=== PATIENT | male | born 1960 | race Caucasian/White ===

== ENCOUNTER 2019-10-25 08:08 | Outpatient (RCR) | payer OTHER | END 2019-10-26 | LOC: M PT 08:08 | DX: Z51.89 Encounter for other specified aftercare (principal); F07.81 Postconcussional syndrome ==

== ENCOUNTER 2019-11-15 12:25 | Outpatient (RCR) | payer OTHER | END 2019-11-25 | LOC: M PT 12:25 | DX: S06.0X9D Concussion with loss of consciousness of unspecified duration, subsequent encounter (principal); X58.XXXD Exposure to other specified factors, subsequent encounter; Y92.89 Other specified places as the place of occurrence of the external cause; Y99.0 Civilian activity done for income or pay ==

== ENCOUNTER 2020-02-03 13:57 | Emergency (ER) | payer OTHER ==
[~2020-02-03] VITALS: Ht 167.6 cm; Wt 81.2 kg
[2020-02-03] MEDS ORDERED: CHLO125TA (14:10)
[2020-02-03 14:45] LABS: BASO # 0.1 10^3/uL (0.0-0.2); BASO % 0.9 % (0.0-1.0); EOS # 0.3 10^3/uL (0.0-0.5); EOS % 4.1 % (0.0-3.0); HEMOGLOBIN 17.1 g/dl (13.5-17.5); LYMPH # 0.9 10^3/uL (1.5-5.0); LYMPH % 12.9 % (24.0-44.0); MEAN CORPUSCULAR HEMOGLOBIN 32.8 pg (27.0-33.0); MEAN CORPUSCULAR HGB CONC 35.6 g/dl (32.0-36.5); MEAN CORPUSCULAR VOLUME 92.1 fl (80.0-96.0); MONO # 0.7 10^3/uL (0.0-0.8); MONO % 11.1 % (0.0-5.0); NEUTROPHILS # 4.7 10^3/uL (1.5-8.5); NEUTROPHILS % 70.7 % (36.0-66.0); PLATELET COUNT, AUTOMATED 249 10^3/uL (150-450); RED BLOOD COUNT 5.21 10^6/uL (4.30-6.10); WHITE BLOOD COUNT 6.6 10^3/uL (4.0-10.0)
[2020-02-03 14:59] LABS: INR 0.98; PROTHROMBIN TIME 12.7 SECONDS (11.8-14.0)
[2020-02-03 15:43] LABS: ALBUMIN 3.8 GM/DL (3.2-5.2); BILIRUBIN,DIRECT 0.2 MG/DL (0.0-0.2); BILIRUBIN,TOTAL 0.9 MG/DL (0.2-1.0); TOTAL PROTEIN 7.7 GM/DL (6.4-8.2)
[2020-02-03] MEDS ORDERED: holter (15:50)
[2020-02-03] MEDS ORDERED: CHLORTHALIDONE 25 MG TAB PO ONE (16:00)
[2020-02-03] MEDS ORDERED: CHLO125TA PO (16:29)
[2020-02-03 17:10] VITALS: BP 150/98
--- NOTE | 2020-02-04 02:13 | REP ---
REASON: Cardiac symptoms. PRIORS: None. The technique utilized in obtaining the radiograph has magnified the cardiac silhouette and accentuated the interstitial markings. There is cardiomegaly accentuated by technique. The lung perry are clear, and the pleural angles are sharp. The osseous structures are within normal limits. IMPRESSION: Cardiomegaly without evidence of acute cardiopulmonary disease. Electronically Signed by Abhijit Huffman DO 02/04/2020 08:56 A
--- NOTE | 2020-02-04 10:11 | ECGEPIP ---
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
== END 2020-02-03 17:11 | disposition home or self-care (01) ==
LOC: M ED 13:57
DX: R00.2 Palpitations (principal); I51.7 Cardiomegaly

== ENCOUNTER → 2020-02-08 | Outpatient (CLI) | payer OTHER ==
[~2020-02-08] MED LIST: CHLO125TA; CHLO125TA PO; holter
--- NOTE | 2020-02-10 15:19 | HOLTMON ---
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 No significant pauses or AV block. Rare isolated PAC averaging 10 per hour, very rare atrial couplet, 2 atrial triplets but no PSVT. Frequent isolated PVCs averaging 235 per hour with rare ventricular couplets and occasional accelerated idioventricular rhythm (averaging 5 per hour; longest 49 beats with rates varying from 73-125 bpm. Single diary entry noting left-sided chest pain while walking did not correlate with any rhythm or rate change; sinus at 91 bpm with isolated PVC. The observed ventricular ectopic activity would be considered outside normal limits. The prognosis associated with this rhythm disturbance is directly related to the presence and severity of any associated structural heart disease. Primary management would be that of the underlying cardiac condition along with assessment of potentially reversible aggravating factors, i.e. excessive caffeine, alcohol, nicotine, [id number] decongestants, energizers, or dietary aids, etc. Antiarrhythmic medications have not been shown to reduce risk or prolong life. Electronically Signed on 02-10-2020 15:19:26 EDT by Erlinda Stacy
== END ==
LOC: M EKG 12:16
PROVIDERS: ATTEND Internal Medicine
DX: I49.9 Cardiac arrhythmia, unspecified (principal)

== ENCOUNTER 2020-02-21 15:15 | Outpatient (RCR) | payer OTHER | END 2020-02-25 | disposition home or self-care (01) | LOC: M PT 15:15 | PROVIDERS: ATTEND Physician Assistant | DX: F07.81 Postconcussional syndrome (principal) ==

== ENCOUNTER 2020-03-15 15:15 | Outpatient (RCR) | payer OTHER | END 2020-03-27 | LOC: M PT 15:15 | PROVIDERS: ATTEND Physician Assistant | DX: F07.81 Postconcussional syndrome (principal) ==

== ENCOUNTER 2020-03-29 14:28 | Outpatient (RCR) | payer OTHER | END 2020-04-26 | LOC: M PT 14:28 | PROVIDERS: ATTEND Physician Assistant | DX: F07.81 Postconcussional syndrome (principal) ==

== ENCOUNTER 2020-06-14 12:53 | Emergency (ER) | payer OTHER ==
[~2020-06-14] VITALS: Ht 170.2 cm; Wt 88.2 kg
[2020-06-14 12:53] VITALS: BP 135/90
[2020-06-14] MEDS ORDERED: SM F500O EX (13:02)
[2020-06-14] MEDS ORDERED: RABIES IMMUNE GLOBULIN 1500 INTERNATIONAL UNIT/5ML VIAL (90375) IM ONE ×2 (13:30)
[2020-06-14] MEDS ORDERED: RABIES VACCINE HUMAN 2.5 INTERNATIONAL UNITS/ML VIAL (90675) IM ONE (13:30)
[2020-06-14] MEDS ORDERED: RABIES IMMUNE GLOBULIN 300 INTERNATIONAL UNITS/1ML VIAL (90375) IM ONE (13:30)
== END 2020-06-14 14:18 | disposition home or self-care (01) ==
LOC: M ED 12:53
DX: Z23 Encounter for immunization (principal); Z20.3 Contact with and (suspected) exposure to rabies; S61.451A Open bite of right hand, initial encounter; W55.01XA Bitten by cat, initial encounter; Y92.410 Unspecified street and highway as the place of occurrence of the external cause; Y93.9 Activity, unspecified; Y99.9 Unspecified external cause status; I10 Essential (primary) hypertension; Z79.899 Other long term (current) drug therapy; Z88.5 Allergy status to narcotic agent

== ENCOUNTER 2020-06-17 09:11 | Emergency (ER) | payer OTHER ==
[~2020-06-17] VITALS: Ht 170.2 cm; Wt 81.0 kg
[~2020-06-17 09:11] MED LIST changes: +SM F500O EX
[2020-06-17 09:12] VITALS: BP 139/86
[2020-06-17] MEDS ORDERED: RABIES VACCINE HUMAN 2.5 INTERNATIONAL UNITS/ML VIAL (90675) IM ONE (09:30)
== END 2020-06-17 09:55 | disposition home or self-care (01) ==
LOC: M ED 09:11
DX: Z23 Encounter for immunization (principal); Z20.3 Contact with and (suspected) exposure to rabies

== ENCOUNTER 2020-06-21 09:15 | Emergency (ER) | payer OTHER ==
[~2020-06-21] VITALS: Ht 167.6 cm; Wt 81.9 kg
[2020-06-21 09:15] VITALS: BP 146/92
[2020-06-21] MEDS ORDERED: RABIES VACCINE HUMAN 2.5 INTERNATIONAL UNITS/ML VIAL (90675) IM ONE (09:30)
== END 2020-06-21 10:27 | disposition home or self-care (01) ==
LOC: M ED 09:15
DX: Z23 Encounter for immunization (principal); Z20.3 Contact with and (suspected) exposure to rabies; S61.451D Open bite of right hand, subsequent encounter; W55.01XD Bitten by cat, subsequent encounter; Y92.9 Unspecified place or not applicable; Y93.9 Activity, unspecified; Y99.9 Unspecified external cause status

== ENCOUNTER 2020-06-28 12:08 | Emergency (ER) | payer OTHER ==
[~2020-06-28] VITALS: Ht 170.2 cm; Wt 83.5 kg
[2020-06-28 12:08] VITALS: BP 136/85
[2020-06-28] MEDS ORDERED: RABIES VACCINE HUMAN 2.5 INTERNATIONAL UNITS/ML VIAL (90675) IM ONE (12:45)
== END 2020-06-28 13:18 | disposition home or self-care (01) ==
LOC: M ED 12:08
DX: Z23 Encounter for immunization (principal); Z20.3 Contact with and (suspected) exposure to rabies

== ENCOUNTER → 2020-07-14 | Outpatient (CLI) | payer OTHER ==
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
== END ==
LOC: M RAD 06:55
PROVIDERS: ATTEND Psychiatry & Neurology Neurology
DX: S06.0X9A Concussion with loss of consciousness of unspecified duration, initial encounter (principal); X58.XXXA Exposure to other specified factors, initial encounter; Y92.89 Other specified places as the place of occurrence of the external cause; Y93.9 Activity, unspecified; Y99.9 Unspecified external cause status; R48.8 Other symbolic dysfunctions

== ENCOUNTER → 2020-07-27 | Outpatient (RCR) | payer OTHER | LOC: M OT 07-13 10:46 | PROVIDERS: ATTEND Psychiatry & Neurology Neurology | DX: S06.0X9A Concussion with loss of consciousness of unspecified duration, initial encounter (principal) ==

== ENCOUNTER → 2020-08-09 | Outpatient (REF) | payer OTHER ==
[2020-08-09 13:45] LABS: THYROID STIMULATING HORMONE 1.8 uIU/ML (0.358-3.740)
== END ==
LOC: M LABDRWAD 12:18
PROVIDERS: ATTEND Psychiatry & Neurology Neurology
DX: S06.0X9A Concussion with loss of consciousness of unspecified duration, initial encounter (principal); W18.30XA Fall on same level, unspecified, initial encounter; Y92.009 Unspecified place in unspecified non-institutional (private) residence as the place of occurrence of the external cause

== ENCOUNTER → 2020-08-10 | Outpatient (REF) | payer OTHER ==
[2020-08-10 22:55] LABS: APPEARANCE, URINE CLEAR (CLEAR); BACTERIA, URINE AUTO NEGATIVE (NEGATIVE); BILIRUBIN, URINE AUTO NEGATIVE (NEGATIVE); BLOOD, URINE BLOOD NEGATIVE (NEGATIVE); COLOR, URINE YELLOW (YELLOW); GLUCOSE, URINE (UA) AUTO NEGATIVE (NEGATIVE); KETONE, URINE AUTO NEGATIVE (NEGATIVE); LEUKOCYTE ESTERASE, URINE AUTO NEGATIVE (NEGATIVE); MUCUS, URINE SMALL (NEGATIVE); NITRITE, URINE AUTO NEGATIVE (NEGATIVE); PROTEIN, URINE AUTO NEGATIVE (NEGATIVE); RBC, URINE AUTO 4 /HPF (0-3); SPECIFIC GRAVITY URINE AUTO 1.023 (1.002-1.035); SQUAMOUS EPITHELIAL CELL UR AU 0 /HPF (0-6); UROBILINOGEN, URINE AUTO 0.2 mg/dL (0.0-2.0); WBC, URINE AUTO 3 /HPF (0-3)
== END ==
LOC: M LAB REF 08:41
PROVIDERS: ATTEND Physician Assistant
DX: N39.0 Urinary tract infection, site not specified (principal)

== ENCOUNTER → 2020-08-22 | Outpatient (REF) | payer OTHER ==
[2020-08-22 16:49] LABS: APPEARANCE, URINE CLEAR (CLEAR); BACTERIA, URINE AUTO NEGATIVE (NEGATIVE); BILIRUBIN, URINE AUTO NEGATIVE (NEGATIVE); BLOOD, URINE BLOOD NEGATIVE (NEGATIVE); COLOR, URINE YELLOW (YELLOW); GLUCOSE, URINE (UA) AUTO NEGATIVE (NEGATIVE); KETONE, URINE AUTO NEGATIVE (NEGATIVE); LEUKOCYTE ESTERASE, URINE AUTO NEGATIVE (NEGATIVE); MUCUS, URINE SMALL (NEGATIVE); NITRITE, URINE AUTO NEGATIVE (NEGATIVE); PROTEIN, URINE AUTO NEGATIVE (NEGATIVE); RBC, URINE AUTO 0 /HPF (0-3); SPECIFIC GRAVITY URINE AUTO 1.025 (1.002-1.035); SQUAMOUS EPITHELIAL CELL UR AU 0 /HPF (0-6); WBC, URINE AUTO 1 /HPF (0-3)
== END ==
LOC: M SFHCLERA 14:49 → M SFHCADAM 14:52
PROVIDERS: ATTEND Family Medicine
DX: R31.9 Hematuria, unspecified (principal)

== ENCOUNTER 2020-08-24 08:54 | Outpatient (RCR) | payer OTHER | END 2020-08-27 | disposition home or self-care (01) | LOC: M OT 08:54 | PROVIDERS: ATTEND Psychiatry & Neurology Neurology | DX: S06.0X9A Concussion with loss of consciousness of unspecified duration, initial encounter (principal); X58.XXXA Exposure to other specified factors, initial encounter ==

== ENCOUNTER → 2020-09-05 | Outpatient (CLI) | payer OTHER, MEDICAID ==
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
== END ==
LOC: M PAIN 13:00
PROVIDERS: ATTEND Nurse Practitioner Family
DX: M79.18 Myalgia, other site (principal); Z88.5 Allergy status to narcotic agent; Z79.899 Other long term (current) drug therapy

== ENCOUNTER 2020-09-18 08:30 | Outpatient (RCR) | payer OTHER | END 2020-09-24 | LOC: M OT 08:30 | PROVIDERS: ATTEND Psychiatry & Neurology Neurology | DX: S06.0X9A Concussion with loss of consciousness of unspecified duration, initial encounter (principal); X58.XXXA Exposure to other specified factors, initial encounter ==

== ENCOUNTER → 2020-10-04 | Outpatient (CLI) | payer OTHER | LOC: M LABSMTC 12:55 | PROVIDERS: ATTEND Anesthesiology | DX: Z11.52 Encounter for screening for COVID-19 (principal) ==

== ENCOUNTER → 2020-10-05 | Outpatient (REF) | payer OTHER, MEDICAID ==
[2020-10-05 12:39] LABS: APPEARANCE, URINE CLEAR (CLEAR); BACTERIA, URINE AUTO NEGATIVE (NEGATIVE); BILIRUBIN, URINE AUTO NEGATIVE (NEGATIVE); BLOOD, URINE BLOOD NEGATIVE (NEGATIVE); COLOR, URINE YELLOW (YELLOW); GLUCOSE, URINE (UA) AUTO 1+ mg/dL (NEGATIVE); KETONE, URINE AUTO NEGATIVE (NEGATIVE); LEUKOCYTE ESTERASE, URINE AUTO NEGATIVE (NEGATIVE); MUCUS, URINE SMALL (NEGATIVE); NITRITE, URINE AUTO NEGATIVE (NEGATIVE); PROTEIN, URINE AUTO NEGATIVE (NEGATIVE); RBC, URINE AUTO 4 /HPF (0-3); SPECIFIC GRAVITY URINE AUTO 1.021 (1.002-1.035); SQUAMOUS EPITHELIAL CELL UR AU 0 /HPF (0-6); UROBILINOGEN, URINE AUTO 0.2 mg/dL (0.0-2.0); WBC, URINE AUTO 1 /HPF (0-3)
== END ==
LOC: M SFHCADAM 10:37
PROVIDERS: ATTEND Family Medicine
DX: R31.1 Benign essential microscopic hematuria (principal)

== ENCOUNTER → 2020-10-18 | Outpatient (CLI) | payer OTHER, MEDICAID | LOC: M LABSMTC 11:24 | PROVIDERS: ATTEND Anesthesiology | DX: Z01.818 Encounter for other preprocedural examination (principal); Z20.822 Contact with and (suspected) exposure to COVID-19 ==

== ENCOUNTER → 2020-10-25 | Outpatient (RCR) | payer OTHER | LOC: M OT 09-25 08:53 → M PT 10-10 08:30 → M OT 10-10 09:15 → M PT 10-16 11:30 | PROVIDERS: ATTEND Psychiatry & Neurology Neurology | DX: F07.81 Postconcussional syndrome (principal); R29.6 Repeated falls ==

== ENCOUNTER → 2020-11-17 | Outpatient (CLI) | payer OTHER | LOC: M LABSMTC 11:06 | PROVIDERS: ATTEND Anesthesiology | DX: Z01.818 Encounter for other preprocedural examination (principal); Z20.828 Contact with and (suspected) exposure to other viral communicable diseases ==

== ENCOUNTER 2020-11-21 08:30 | Outpatient (RCR) | payer OTHER | END 2020-11-24 | LOC: M PT 08:30 | PROVIDERS: ATTEND Psychiatry & Neurology Neurology | DX: F07.81 Postconcussional syndrome (principal); M54.2 Cervicalgia ==

== ENCOUNTER → 2020-11-22 | Outpatient (REF) | payer OTHER, MEDICAID ==
[2020-11-22 13:07] LABS: APPEARANCE, URINE CLEAR (CLEAR); BACTERIA, URINE AUTO NEGATIVE (NEGATIVE); BILIRUBIN, URINE AUTO NEGATIVE (NEGATIVE); BLOOD, URINE BLOOD NEGATIVE (NEGATIVE); COLOR, URINE STRAW (YELLOW); GLUCOSE, URINE (UA) AUTO NEGATIVE (NEGATIVE); KETONE, URINE AUTO NEGATIVE (NEGATIVE); LEUKOCYTE ESTERASE, URINE AUTO TRACE (NEGATIVE); NITRITE, URINE AUTO NEGATIVE (NEGATIVE); PROTEIN, URINE AUTO NEGATIVE (NEGATIVE); RBC, URINE AUTO 1 /HPF (0-3); SPECIFIC GRAVITY URINE AUTO 1.008 (1.002-1.035); SQUAMOUS EPITHELIAL CELL UR AU 0 /HPF (0-6); UROBILINOGEN, URINE AUTO 0.2 mg/dL (0.0-2.0); WBC, URINE AUTO 1 /HPF (0-3)
[2020-11-22 13:11] LABS: BASO # 0.1 10^3/uL (0.0-0.2); BASO % 1.1 % (0.0-1.0); EOS # 0.4 10^3/uL (0.0-0.5); EOS % 6.8 % (0.0-3.0); HEMATOCRIT 52.3 % (42.0-52.0); HEMOGLOBIN 17.5 g/dl (13.5-17.5); LYMPH % 18.5 % (24.0-44.0); MEAN CORPUSCULAR HEMOGLOBIN 31.6 pg (27.0-33.0); MEAN CORPUSCULAR HGB CONC 33.5 g/dl (32.0-36.5); MEAN CORPUSCULAR VOLUME 94.6 fl (80.0-96.0); MONO # 0.6 10^3/uL (0.0-0.8); MONO % 10.3 % (2.0-8.0); NEUTROPHILS # 3.6 10^3/uL (1.5-8.5); NEUTROPHILS % 63.1 % (36.0-66.0); PLATELET COUNT, AUTOMATED 241 10^3/uL (150-450); RED BLOOD COUNT 5.53 10^6/uL (4.30-6.10); WHITE BLOOD COUNT 5.6 10^3/uL (4.0-10.0)
[2020-11-22 14:07] LABS: ALBUMIN 3.9 GM/DL (3.2-5.2); ALT/SGPT 42 U/L (12-78); BILIRUBIN,TOTAL 0.9 MG/DL (0.2-1.0); BLOOD UREA NITROGEN 13 MG/DL (7-18); CALCIUM LEVEL 9.5 MG/DL (8.5-10.1); CARBON DIOXIDE LEVEL 31 MEQ/L (21-32); CHLORIDE LEVEL 100 MEQ/L (98-107); FREE T4 0.94 NG/DL (0.76-1.46); GLOMERULAR FILTRATION RATE > 60.0 (>56); GLUCOSE, FASTING 102 MG/DL (70-100); POTASSIUM SERUM 3.6 MEQ/L (3.5-5.1); SODIUM LEVEL 138 MEQ/L (136-145); TOTAL PROTEIN 7.8 GM/DL (6.4-8.2)
[2020-11-22 14:48] LABS: ERYTHROCYTE SEDIMENTATION RATE 4 mm/hr (0-20)
== END ==
LOC: M SFHCADAM 09:04 → M SFHCLERA 09:04
PROVIDERS: ATTEND Family Medicine
DX: R23.2 Flushing (principal); R31.9 Hematuria, unspecified
CPT/HCPCS: 80053; 81001; 84439; 84443; 85025; 85652; 86140; G0103

== ENCOUNTER → 2020-12-01 | Outpatient (CLI) | payer OTHER ==
[~2020-12-01] MED LIST changes: +ISOVUE-370 76% 100ML VIAL As Ordered ONE
--- NOTE | 2020-12-01 17:48 | REP ---
INDICATION: HEMATURIA. COMPARISON: None TECHNIQUE: Helical CT before and after intravenous contrast. 100 cc Isovue 370 was administered. FINDINGS: The lung bases are clear. The pre contrast enhanced portion examination shows hepatic and splenic densities to be within normal limits. In the interpolar region of the left kidney there is a 3 mm sized nonobstructing calculus. There are no right-sided nephroliths. There are no ureteroliths. There are no urinary bladder calcifications. There are no cholelith. Contrast-enhanced portion examination shows a moderate to large hiatal hernia. The liver, gallbladder, spleen, pancreas, and adrenal glands are within normal limits. Aside from the aforementioned left nephrolith there are no left renal abnormalities. Arising from the interpolar region of the right kidney there is a tiny 5 mm sized lesion which has much higher than water density Hounsfield unit readings but due to its small size is difficult to effectively evaluate. The right kidney is otherwise unremarkable. The abdominal aorta and para-aortic regions are within normal limits. There is rather advanced sigmoid colon diverticulosis. Scattered diverticula are seen throughout the colon. Rather advanced ascending colon and hepatic flexure diverticulosis is also noted. There is no free fluid or free air. The abdominal aorta and para-aortic regions are within normal limits. MIP reformatted 3D imaging of the renal collecting system shows near complete opacification of the right renal collecting system with a small amount of the left ureter non-opacified likely secondary to peristaltic activity. Delayed imaging through the urinary bladder shows no evidence of an abnormal filling defect. Imaged osseous structures are within normal limits. There are spinal degenerative changes. IMPRESSION: 1. Nonobstructing left nephrolith as described above. 2. Tiny right renal lesion as described above. Pre and post gadolinium enhanced MRI is recommended for complete evaluation secondary to the complaints of hematuria. 3. Colonic diverticulosis. 4. Hiatal hernia. 5. Other findings as described above. <Electronically signed by Abhijit Huffman > 12/01/20 [id number]
== END ==
LOC: M RAD 16:28
PROVIDERS: ATTEND Family Medicine
DX: R31.21 Asymptomatic microscopic hematuria (principal); N20.0 Calculus of kidney; N28.89 Other specified disorders of kidney and ureter; K57.30 Diverticulosis of large intestine without perforation or abscess without bleeding; K44.9 Diaphragmatic hernia without obstruction or gangrene
CPT/HCPCS: 74178; Q9967

== ENCOUNTER 2020-12-21 07:45 | Outpatient (RCR) | payer OTHER, MEDICAID ==
[~2020-12-21 07:45] MED LIST changes: -ISOVUE-370 76% 100ML VIAL As Ordered ONE
== END 2020-12-25 ==
LOC: M PT 07:45
PROVIDERS: ATTEND Psychiatry & Neurology Neurology
DX: F07.81 Postconcussional syndrome (principal)

== ENCOUNTER 2020-12-26 12:02 | Outpatient (RCR) | payer MEDICAID, OTHER | END 2021-01-24 | LOC: M PT 12:02 | PROVIDERS: ATTEND Psychiatry & Neurology Neurology | DX: F07.81 Postconcussional syndrome (principal) ==

== ENCOUNTER → 2021-02-12 | Outpatient (CLI) | payer OTHER ==
[~2021-02-12] MED LIST changes: +PROHANCE 279.3MG/ML 15ML VIAL As Ordered ONE; +PROHANCE 279.3MG/ML 5ML VIAL As Ordered ONE
--- NOTE | 2021-02-13 10:21 | REP ---
INDICATION: ENDOCRINE PANCREATIC INSUFFIENCY. COMPARISON: CT 12/01/2020. TECHNIQUE: Multiple sequences obtained in the axial coronal planes prior to and following the intravenous administration of 16 mL ProHance. FINDINGS: There is a moderate hiatal hernia. There is diffuse colonic diverticulosis. There is no free fluid or adenopathy. There is a benign 7 mm hemorrhagic cyst in the posterior right kidney. There is no hydronephrosis. Gallbladder is grossly unremarkable. There is no biliary dilatation. The visualized liver and spleen are unremarkable. No adrenal mass is seen. No pancreatic mass is seen and there is no pancreatic duct dilatation. IMPRESSION: There is a 7 mm hemorrhagic cyst in the posterior right kidney. No other renal abnormality is seen. Moderate hiatal hernia. Diffuse colonic diverticulosis. <Electronically signed by Gianluca David > 02/13/21 1012
== END ==
LOC: M RAD 01-16 16:27
PROVIDERS: ATTEND Family Medicine
DX: N28.89 Other specified disorders of kidney and ureter (principal)
CPT/HCPCS: 74183; A9576

== ENCOUNTER 2021-05-21 16:05 | Emergency (ER) | payer OTHER ==
[~2021-05-21] VITALS: Ht 165.1 cm; Wt 84.1 kg
[~2021-05-21 16:05] MED LIST changes: -PROHANCE 279.3MG/ML 15ML VIAL As Ordered ONE; -PROHANCE 279.3MG/ML 5ML VIAL As Ordered ONE
--- OUTSIDE RECORDS SUMMARY | 2021-05-21 16:19 | CCD ---
Author Author [facility] Organization [facility] Address Unknown Phone Unavailable Care Team Providers Care Staff Software Engineer Name Role Phone Amy Cabello Unavailable PROBLEMS Type Condition ICD9-CM Code LTS17-HI Code Onset Dates Condition S tatus W/U Status Risk SNOMED Code Notes Problem Renal mass, right N28.89 Active confirmed 30 4519009 Problem Diverticulosis K57.90 Active confirmed 08707 1000 Problem Post concussion syndrome F07.81 Active confirmed [id number] He is set up with referrals/appointments with neurology and psychiatry, and he continues his physical therapy for balance. I had a long talk with Grayson and his long-term girlfriend today about the person he has become and the changes that have occurred. This is impacting their relationship, and we discussed various coping mechanisms Problem Essential hypertension I10 Active confirmed [id number] I encouraged him to establish with a primary care provider as soon as possible Problem Post-traumatic headache, unspecified, not intractable G44.309 Active confirmed 90019706 His new neurolog ist is following this ALLERGIES Allergen (clinical drug ingredient) Drug/Non Drug Allergy do cumented on EMR Reaction Allergy Type Onset Date Status Vicodin "gets really hot" Drug Allergy Activ e ENCOUNTERS from 1960 to 2021-02-25 Encounter Location Date Provider Diagnosis [address] [phone] [place] [address] Jan, Amy Cabello IMMUNIZATIONS No Information SOCIAL HISTORY Tobacco Use: Social History Observation Description Date Details (start date - stop date) Never Smoker Sex Assigned At : Social History Observation Description Sex Assigned At Unknown Education: Question Answer Notes Level of Education: High School Language: Question Answer Notes Languages spoken: American Lutheran: Question Answer Notes Lutheran No orthodoxy beliefs that would impact health care. Alcohol Screening: Question Answer Notes Did you have a drink containing alcohol in the past year? No Points 0 Interpretation Negative Tobacco Use: Question Answer Notes Are you a: never smoker REASON FOR REFERRAL No Information VITAL SIGNS No information MEDICATIONS Medication SIG (Take, Route, Frequency, Duration) Notes Start Da te End Date Status Physical Therapy evaluate and treat mechanical eval & tx F07.81, post-concussion syndrome 3 x/wk x for 30 Days November, Ac tive Chlorthalidone 25 MG 1 tablet in the morning with food Orally Once a day for 90 day(s) Active Ibuprofen 200 MG 2 tablets Orally Twice a day Active Amitriptyline HCl 25 MG 1-2 tabs at bedtime Orally Once a day for 30 Days Active PROCEDURES No Information RESULTS No Results REASON FOR VISIT N/S MEDICAL (GENERAL) HISTORY Type Description Date Medical History essential hypertension Medical History postconcussion syndrome Medical History CHRONIC PAIN Medical History Hiatal hernia Medical History Diverticulosis -colo 2020 Medical History 5mm density in right kidney Medical History nephrolitiaisis Surgical History left knee arthroplasty Surgical History Left shoulder reduction Hospitalization History dehydration Goals Section No Information Health Concerns No Information MEDICAL EQUIPMENT No Information MENTAL STATUS No Information FUNCTIONAL STATUS No Information ASSESSMENTS No Information PLAN OF TREATMENT No Information Insurance Providers Payer Name Payer Address Payer Phone Insured Name Patient Relati onship to Insured Coverage Start Date Coverage End Date [facility] [address] [place] [id number] MIGUEL DUNN self
--- OUTSIDE RECORDS SUMMARY | 2021-05-21 16:19 | CCD ---
Author Author [facility] Organization [facility] Address [address] [place], [place] [id number] Phone Care Team Providers Care Director Volunteer Services Name Role Phone MANOJ JOLLY Unavailable Allergies, Adverse Reactions, Alerts Vicodin 11/23/2020 Allergies Removed from Chart: No Known Drug Allergies 11/23/2020 Medications * Continue: * MARIE MARTINEZ [employer] * doxycycline hyclate 100 mg capsule , Take 1 capsule orally Twice a day 05/04/2021 * Flonase Allergy Relief 50 mcg/actuation nasal spray,suspension , Take 2 spray, suspension (mL) nasally Every day 05/04/2021 * predniSONE 20 mg tablet , Take 1 tablet orally Every 12 hours 05/04/2021 * Discontinued: * * amitriptyline 10 mg tablet 11/16/2019 * potassium chloride ER 20 mEq tablet,extended release 06/08/2020 * azelastine 137 mcg (0.1 %) nasal spray aerosol 06/08/2020 * ESTEBAN MCNEILL LPN * cetirizine 10 mg tablet 05/04/2021 * azithromycin 250 mg tablet 05/04/2021 * Flonase Sensimist 27.5 mcg/actuation nasal spray,suspension 05/04/2021 * chlorthalidone 25 mg tablet 01/12/2021 * doxycycline hyclate 100 mg capsule 01/12/2021 * MANOJ DAVENPORT * Augmentin 875 mg-125 mg tablet 11/23/2020 * ARIN NARVAEZ * amoxicillin 875 mg-potassium clavulanate 125 mg tablet 03/02/2021 * Pre-existing: * chlorthalidone 25 mg tablet * propranoloL 80 mg tablet Problems Addressed During This Encounter Insect bite (nonvenomous) of right front wall of thorax, initial encounter (S20.361A) 11/23/2020 Nasal congestion (R09.81) 01/12/2021 Acute maxillary sinusitis, unspecified ( J01.00) 01/12/2021 Postnasal drip (R09.82) 01/12/2021 Laceration with foreign body of left ind ex finger without damage to nail, initial encounter (S61.221A) 03/02/2021 Pain in left finger(s) (M79.645) Nasal congestion (R09.81) 05/04/2021 Cough (R05) 05/04/2021 Encounter for observation for suspected exposure to other biological agents ruled out (Z03.818) 05/04/2021 Resolved: Concussion without loss of consciousness, initial encounter (S06.0X0A) 11/16/2019 Essential (primary) hypertension (I10) 06/08/2020 Nasal congestion (R09.81) 06/08/2020 Chest pain, unspecified (R07.9) 06/08/2020 Bitten by cat, initial encounter (W55.01XA) 11/23/2020 Unspecified open wound of right hand, initial encounter (S61.401A) 11/23/2020 Results SODIUM: 138 mmol/L 11/16/2019 Potassium: 3.5 mmol/L 11/16/2019 CHLORIDE: 105 mmol/L 11/16/2019 CO2: 27 mmol/L 11/16/2019 ANION GAP: 6 mmol/L 11/16/2019 UREA NITROGEN: 11 mg/dL 11/16/2019 Creatinine: 0.89 mg/dL 11/16/2019 BUN/CREAT RATIO: 12.4 RATIO 11/16/2019 Glucose: 161 mg/dL 11/16/2019 CALCIUM: 8.9 mg/dL 11/16/2019 GFR : >60 11/16/2019 GFR ( AMER): >60 11/16/2019 Chief Complaint COVID negativeWill order XRAY- not avail able in office today Treat for URI/SINUS with prednisone, ABX and flonase due to duration of symptoms COUGH,CHEST CONGESTION Laceration repairPatient is up-to-date o n tetanusEducated on wound careFollow-up for suture removal laceration Discontinue a azithromycin and start Aug mentinContinue with additional supportive management COUGHING,CHEST CONGESTION Tick bite and chest wallGave a single do se of doxycyclineConsider Lyme testing in a few weeksI discussed bradycardia with him but he states that this is known to his doctor and is being worked up and he is asymptomatic from TICK BITE 59-year-old male, right-hand dominant, b ite to right hand by Feral cat. Tetanus is up-to-date. We will forward this information to public health so he can receive his rabies shots. Patient was made aware. Wound soaked and scrubbed in a water/povidone iodine solution per up-to-date recommendation. Patient started on Augmentin. All questions answered for patient. Follow-up as needed. cat bite Nasal congestionPostnasal dripChest tigh tness or congestionThe patient was screened for Covid 19 prior to entering facilityRapid test is negativeEKG is nondiagnosticSymptoms are not anginal in natureHas attempted to get into primary care and is still working on follow-upHe believes this is postnasal drip and would like to try some Astelin nasal sprayCertainly this is an appropriate next step but he is instructed to go to the hospital for worsening symptoms congestion HypertensionHas been regularly elevated for several monthsThe patient reports that he is now doing physical therapy for head injuryThe head injury is not connected to today's visit and this is not related to his reported concussionStates that [place] care doctor there who has now retiredHe did see another doctor for follow-up but did not feel that was addressing his needsBecause of the repeated the elevated blood pressures we will start him on chlorthalidone consistent with the findings of the ALLHAT study this should be an appropriate interventionCheck a med profileHe plans to follow-up with a [facility] and is encouraged to do so urgently so he can be seen within a couple weeks for recheck of the blood pressure and kidney function and potassium High blood pressure Exam unremarkable, no neuro deviationsAd vised to restart brain rest x 24 hours then slowly resume normal activitiesGave PT order as prequestedF/U as needed Recheck concussion Procedures Performed and Ordered Today * ROUTINE VENIPUNCTURE 11/16/2019 * ECG COMPLETE 03/22/2020 * [facility] 06/08/2020 * [facility] 01/12/2021 * UP TO 2.5 CM 03/02/2021 * [facility] 03/02/2021 * INFECTIOUS AGENT DETECTION BY NUCLEIC ACID 05/04/2021 * [facility] 05/04/2021 * * Lab: Collected Date 11/16/2019 1250 11/16/2019 BMP 11/16/2019 Imaging: Physical Therapy 10/12/2019 CHEST XRAY 2 VIEW COUGH 8 MONTHS 05/04/2021 Vital signs Body Temperature: Heart Rate: Respiratory Rate: BP: Height: Weight: BMI: O2 Percentage dC Oximetry : Inhaled Oxygen Concentration: 98.0F 05/04/2021 74 beats per minute 05/04/2021 16 breaths per minute 06/08/2020 110 /78 mmHg 05/04/2021 5ft, 4in 03/02/2021 205lbs 05/04/2021 34.498 03/02/2021 96% 05/04/2021 21% 05/04/2021 Immunizations Social History Smoking Status: Never smoker. 05/04/2021 Reason for Referral Functional Status Plan of Treatment Procedures Scheduled: Physical Therapy 10/12/2019 Appointments Sched ed: October 11, 2 020, 7:00 PM, CALDERON MELVIN NP Friday, November 16, 2019, 12:10 PM, MANOJ DAVENPORT Friday, March 22, 2020, 11:10 AM, MANOJ DAVENPORT , June 08, 2020, 6:10 PM, KRYSTEN DAVENPORT October, 9:00 AM, MANOJ DAVENPORT Tuesday, January 12, 2021, 6:00 PM, MARIE MARTINEZ NP Tuesday, March 02, 2021, 5:30 PM, MARIE MARTINEZ NP Tuesday, May 04, 2021, 6:20 PM, AMRIE MARTINEZ NP Instructions: Drink lots of clear liquids, gargle with salt water often, tea with honey and lemon. <Follow up with primary care> Return if symptoms worsen When taking antibiotics, also take probiotics. Keep dressing on for 24 hours. May get wet to wash in 24 hours. Keep covered while working and when active. May leave open to air when at rest. Return in 10 days for suture removal or sooner for redness, swelling, increased pain, purulent drainage, foul odor, decreased range of motion or fever. <Follow up with primary care> Return if symptoms worsen <Follow up with primary care> Return if symptoms worsen When taking antibiotics, also take probiotics. If you take doxycycline avoid prolonged sunexposure while on the antibiotic. <Follow up with primary care> Return if symptoms worsen When taking antibiotics, also take probiotics. Consider Lyme disease testing in 6 weeks <Follow up with primary care> Return if symptoms worsen When taking antibiotics, also take probiotics. <Follow up with primary care> If your symptoms worsen, go to the Emergency Room. <Follow up with primary care> We will call with lab and/or xray results Contact primary care as soon as possible and make arrangements for close follow- up, hopefully within 2 weeks Contact the specialist listed below for an appointment Use cold on the area but do not put ice directly on the skin. <Follow up with primary care> Return if symptoms worsen Payers Insurance Policy Type Po licy ID Relation Subscriber Expi ration ID IDENTIFICATION Other Insurance [facility] ERLINDA DUNN [facility] Commercial Insurance [id number] [facility] ERLINDA DUNN [facility] Commercial Insuranc e [id number] Isaiah DUNN 04/26/2020 [facility] Other Insurance [id number] [facility] ERLINDA DUNN Encounters OFFICE/OUTPATIENT SIT, EST 05/04/2021 Diagnoses Nasal congestion Cough Encounter for observation for suspected exposure to other biological agents ruled out OFFICE/OUTPATIENT SIT, EST 03/02/2021 Diagnoses Laceration with foreign body of left index finger without damage to nail, initial encounter Pain in left finger(s) OFFICE/OUTPATIENT SIT, EST 01/12/2021 Diagnoses Nasal congestion Acute maxillary sinusitis, unspecified Postnasal drip OFFICE/OUTPATIENT SIT, EST 11/23/2020 Diagnoses Insect bite (nonvenomous) of right front wall of thorax, initial encounter OFFICE/OUTPATIENT SIT, EST 06/08/2020 Diagnoses Bitten by cat, initial encounter Unspecified open wound of right hand, initial encounter OFFICE/OUTPATIENT SIT, EST 03/22/2020 Diagnoses Nasal congestion Chest pain, unspecified Essential (primary) hypertension OFFICE/OUTPATIENT SIT, EST 11/16/2019 Diagnoses Essential (primary) hypertension OFFICE/OUTPATIENT SIT, NEW 10/12/2019 Diagnoses Concussion without loss of consciousness, initial encounter
--- OUTSIDE RECORDS SUMMARY | 2021-05-21 16:19 | CCD ---
Author Author [facility] Organization [facility] Address Unknown Phone Unavailable Care Team Providers Care Terra Cotta Mold Maker Name Role Phone Aguilar Joann OTR TRUCK DRIVER Unavailable Unavailable Aguilar, Joann OTR TRUCK DRIVER Unavailable Unavailable Aguilar, Joann OTR TRUCK DRIVER Unavailable Unavailable Aguilar, Joann OTR TRUCK DRIVER Unavailable Unavailable Aguilar, Joann OTR TRUCK DRIVER Unavailable Unavailable Aguilar, Joann OTR TRUCK DRIVER Unavailable Unavailable Aguilar, Joann OTR TRUCK DRIVER Unavailable Unavailable Aguilar, Joann OTR TRUCK DRIVER Unavailable Unavailable Aguilar, Joann OTR TRUCK DRIVER Unavailable Unavailable Aguilar, Joann OTR TRUCK DRIVER Unavailable Unavailable Aguilar, Joann OTR TRUCK DRIVER Unavailable Unavailable Aguilar, Joann OTR TRUCK DRIVER Unavailable Unavailable Aguilar, Joann OTR TRUCK DRIVER Unavailable Unavailable Scarlet Garcia Rajwinder PA PA Unavailable [phone] Garcia, Scarlet Rajwinder PA PA Unavailable [phone] Garcia, Scarlet Rajwinder PA PA Unavailable [phone] Garcia, E Rajwinder PA PA Unavailable [phone] Scarlet Garcia Rajwinder PA PA Unavailable [phone] Sofía Duron OTR TRUCK DRIVER Unavailable Unavailable Sofía Duron OTR TRUCK DRIVER Unavailable Unavailable Potter, M Chaya OTR TRUCK DRIVER Unavailable Unavailable Potter, M Chaya OTR TRUCK DRIVER Unavailable Unavailable Potter, M Chaya OTR TRUCK DRIVER Unavailable Unavailable Potter, M Chaya OTR TRUCK DRIVER Unavailable Unavailable Potter, M Chaya OTR TRUCK DRIVER Unavailable Unavailable Potter, M Chaya OTR TRUCK DRIVER Unavailable Unavailable Potter, M Chaya OTR TRUCK DRIVER Unavailable Unavailable Potter, M Chaya OTR TRUCK DRIVER Unavailable Unavailable Potter, M Chaya OTR TRUCK DRIVER Unavailable Unavailable Potter, M Chaya OTR TRUCK DRIVER Unavailable Unavailable Potter, M Chaya OTR TRUCK DRIVER Unavailable Unavailable Potter, M Chaya OTR TRUCK DRIVER Unavailable Unavailable Potter, M Chaya OTR TRUCK DRIVER Unavailable Unavailable Potter, M Chaya OTR TRUCK DRIVER Unavailable Unavailable Potter, M Chaya OTR TRUCK DRIVER Unavailable Unavailable Potter, M Chaya OTR TRUCK DRIVER Unavailable Unavailable Potter, M Chaya OTR TRUCK DRIVER Unavailable Unavailable Potter, M Chaya OTR TRUCK DRIVER Unavailable Unavailable Potter, M Chaya OTR TRUCK DRIVER Unavailable Unavailable Potter, M Chaya OTR TRUCK DRIVER Unavailable Unavailable Potter, M Chaya OTR TRUCK DRIVER Unavailable Unavailable Potter, M Chaya OTR TRUCK DRIVER Unavailable Unavailable Potter, M Chaya OTR TRUCK DRIVER Unavailable Unavailable Potter, M Chaya OTR TRUCK DRIVER Unavailable Unavailable Potter, M Chaya OTR TRUCK DRIVER Unavailable Unavailable Potter, M Chaya OTR TRUCK DRIVER Unavailable Unavailable Potter, M Chaya OTR TRUCK DRIVER Unavailable Unavailable Potter, M Chaya OTR TRUCK DRIVER Unavailable Unavailable Potter, M Chaya OTR TRUCK DRIVER Unavailable Unavailable Potter, M Chaya OTR TRUCK DRIVER Unavailable Unavailable Potter, M Chaya OTR TRUCK DRIVER Unavailable Unavailable Potter, M Chaya OTR TRUCK DRIVER Unavailable Unavailable Potter, M Chaya OTR TRUCK DRIVER Unavailable Unavailable Potter, M Chaya OTR TRUCK DRIVER Unavailable Unavailable Potter, M Chaya OTR TRUCK DRIVER Unavailable Unavailable Potter, M Chaya OTR TRUCK DRIVER Unavailable Unavailable Potter, M Chaya OTR TRUCK DRIVER Unavailable Unavailable Potter, M Chaya OTR TRUCK DRIVER Unavailable Unavailable Potter, M Chaya OTR TRUCK DRIVER Unavailable Unavailable Potter, M Chaya OTR TRUCK DRIVER Unavailable Unavailable Potter, M Chaya OTR TRUCK DRIVER Unavailable Unavailable Potter, M Chaya OTR TRUCK DRIVER Unavailable Unavailable Potter, M Chaya OTR TRUCK DRIVER Unavailable Unavailable Potter, M Chaya OTR TRUCK DRIVER Unavailable Unavailable Potter, M Chaya OTR TRUCK DRIVER Unavailable Unavailable Potter, M Chaya OTR TRUCK DRIVER Unavailable Unavailable Potter, M Chaya OTR TRUCK DRIVER Unavailable Unavailable Potter, M Chaya OTR TRUCK DRIVER Unavailable Unavailable Potter, M Chaya OTR TRUCK DRIVER Unavailable Unavailable Potter, M Chaya OTR TRUCK DRIVER Unavailable Unavailable Potter, M Chaya OTR TRUCK DRIVER Unavailable Unavailable Potter, M Chaya OTR TRUCK DRIVER Unavailable Unavailable Potter, M Chaya OTR TRUCK DRIVER Unavailable Unavailable Potter, M Chaya OTR TRUCK DRIVER Unavailable Unavailable Potter, M Chaya OTR TRUCK DRIVER Unavailable Unavailable Potter, M Chaya OTR TRUCK DRIVER Unavailable Unavailable Burrell, Yaniv PA Unavailable Unavailable Burrell, Yaniv PA Unavailable Unavailable Burrell, Yaniv PA Unavailable Unavailable Burrell, Yaniv PA Unavailable Unavailable Burrell, Yaniv PA Unavailable Unavailable Burrell, Yaniv PA Unavailable Unavailable Burrell, Yaniv PA Unavailable Unavailable Burrell, Yaniv PA Unavailable Unavailable Burrell, Yaniv PA Unavailable Unavailable Burrell, Yaniv PA Unavailable Unavailable Burrell, Yaniv PA Unavailable Unavailable Burrell, Yaniv PA Unavailable Unavailable Burrell, Yaniv PA Unavailable Unavailable Burrell, Yaniv PA Unavailable Unavailable Burrell, Yaniv PA Unavailable Unavailable Burrell, Yaniv PA Unavailable Unavailable Burrell, Yaniv PA Unavailable Unavailable Burrell, Yaniv PA Unavailable Unavailable Burrell, Yaniv PA Unavailable Unavailable Burrell, Yaniv PA Unavailable Unavailable Burrell, Yaniv PA Unavailable Unavailable Feola, T Karena PA Unavailable Unavailable Feola, T Karena PA Unavailable Unavailable Feola, T Karena PA Unavailable Unavailable Feola, T Karena PA Unavailable Unavailable Feola, T Karena PA Unavailable Unavailable Feola, T Karena PA Unavailable Unavailable Feola, T Karena PA Unavailable Unavailable Feola, T Karena PA Unavailable Unavailable Feola, T Karena PA Unavailable Unavailable Feola, T Karena PA Unavailable Unavailable Feola, T Karena PA Unavailable Unavailable Feola, T Karena PA Unavailable Unavailable Feola, T Karena PA Unavailable Unavailable Feola, T Karena PA Unavailable Unavailable Feola, T Karena PA Unavailable Unavailable Feola, T Karena PA Unavailable Unavailable Feola, T Karena PA Unavailable Unavailable Feola, T Karena PA Unavailable Unavailable Feola, T Karena PA Unavailable Unavailable Feola, T Karena PA Unavailable Unavailable Feola, T Karena PA Unavailable Unavailable Feola, T Karena PA Unavailable Unavailable Feola, T Karena PA Unavailable Unavailable Feola, T Karena PA Unavailable Unavailable Feola, T Karena PA Unavailable Unavailable Feola, T Karena PA Unavailable Unavailable Feola, T Karena PA Unavailable Unavailable Feola, T Karena PA Unavailable Unavailable Feola, T Karena PA Unavailable Unavailable Feola, T Karena PA Unavailable Unavailable Feola, T Karena PA Unavailable Unavailable Feola, T Karena PA Unavailable Unavailable Feola, T Karena PA Unavailable Unavailable Feola, T Karena PA Unavailable Unavailable Feola, T Karena PA Unavailable Unavailable Feola, T Karena PA Unavailable Unavailable Feola, T Karena PA Unavailable Unavailable Feola, T Karena PA Unavailable Unavailable Feola, T Karena PA Unavailable Unavailable Feola, T Karena PA Unavailable Unavailable Feola, T Karena PA Unavailable Unavailable JOHNSON, G EDWARD RPA Unavailable Unavailable JOHNSON, G EDWARD RPA Unavailable Unavailable JOHNSON, G EDWARD RPA Unavailable Unavailable JOHNSON, G EDWARD RPA Unavailable Unavailable JOHNSON, G EDWARD RPA Unavailable Unavailable JOHNSON, G EDWARD RPA Unavailable Unavailable JOHNSON, G EDWARD RPA Unavailable Unavailable JOHNSON, G EDWARD RPA Unavailable Unavailable JOHNSON, G EDWARD RPA Unavailable Unavailable JOHSNON, G EDWARD RPA Unavailable Unavailable JOHNSON, G EDWARD RPA Unavailable Unavailable JOHNSON, G EDWARD RPA Unavailable Unavailable JOHNSON, G EDWARD RPA Unavailable Unavailable JOHNSON, G EDWARD RPA Unavailable Unavailable JOHNSON, G EDWARD RPA Unavailable Unavailable JOHNSON, G EDWARD RPA Unavailable Unavailable JOHNSON, G EDWARD RPA Unavailable Unavailable JOHNSON, G EDWARD RPA Unavailable Unavailable JOHNSON, G EDWARD RPA Unavailable Unavailable JOHNSON, G EDWARD RPA Unavailable Unavailable JOHNSON, G EDWARD RPA Unavailable Unavailable JOHNSON, G EDWARD RPA Unavailable Unavailable JOHNSON, G EDWARD RPA Unavailable Unavailable JOHNSON, G EDWARD RPA Unavailable Unavailable JOHNSON, G EDWARD RPA Unavailable Unavailable JOHNSON, G EDWARD RPA Unavailable Unavailable JOHNSON, G EDWARD RPA Unavailable Unavailable JOHNSON, G EDWARD RPA Unavailable Unavailable JOHNSON, G EDWARD RPA Unavailable Unavailable JOHNSON, G EDWARD RPA Unavailable Unavailable JOHNSON, G EDWARD RPA Unavailable Unavailable JOHNSON, G EDWARD RPA Unavailable Unavailable JOHNSON, G EDWARD RPA Unavailable Unavailable JOHNSON, G EDWARD RPA Unavailable Unavailable JOHNSON, G EDWARD RPA Unavailable Unavailable Malek, Garret Waters MD Unavailable [phone] Malek, Garret Waters MD Unavailable [phone] Malek, Garret Waters MD Unavailable [phone] Malek, Garret Waters MD Unavailable [phone] Malek, Garret Waters MD Unavailable [phone] Malek, Garret Waters MD Unavailable [phone] Malek, T Hamza MD Unavailable [phone] Malek, T Hamza MD Unavailable [phone] Malek, T Hamza MD Unavailable [phone] Malek, T Hamza MD Unavailable [phone] Malek, T Hamza MD Unavailable [phone] Malek, T Hamza MD Unavailable [phone] Malek, T Hamza MD Unavailable [phone] Malek, T Hamza MD Unavailable [phone] Malek, T Hamza MD Unavailable [phone] Malek, T Hamza MD Unavailable [phone] Malek, T Hamza MD Unavailable [phone] Malek, T Hamza MD Unavailable [phone] Malek, T Hamza MD Unavailable [phone] Malek, T Hamza MD Unavailable [phone] Malek, T Hamza MD Unavailable [phone] Malek, T Hamza MD Unavailable [phone] RING, K DELORES PA Unavailable Unavailable RING, K DELORES PA Unavailable Unavailable RING, K DELORES PA Unavailable Unavailable RING, K DELORES PA Unavailable Unavailable RING, K DELORES PA Unavailable Unavailable RING, K DELORES PA Unavailable Unavailable RING, K DELORES PA Unavailable Unavailable RING, K DELORES PA Unavailable Unavailable RING, K DELORES PA Unavailable Unavailable RING, K DELORES PA Unavailable Unavailable RING, K DELORES PA Unavailable Unavailable RING, K DELORES PA Unavailable Unavailable RING, K DELORES PA Unavailable Unavailable RING, K DELORES PA Unavailable Unavailable RING, K DELORES PA Unavailable Unavailable RING, K DELORES PA Unavailable Unavailable RING, K DELORES PA Unavailable Unavailable RING, K DELORES PA Unavailable Unavailable RING, K DELORES PA Unavailable Unavailable RING, K DELORES PA Unavailable Unavailable RING, K DELORES PA Unavailable Unavailable Sofía Zuleta PA-C Unavailable Unavailable Sofía Zuleta PA-C Unavailable Unavailable Zuleta, M Christopher PA-C Unavailable Unavailable Zuleta, M Christopher PA-C Unavailable Unavailable Zuleta, M Christopher PA-C Unavailable Unavailable Zuleta, M Christopher PA-C Unavailable Unavailable Zuleta, M Christopher PA-C Unavailable Unavailable Zuleta, M Christopher PA-C Unavailable Unavailable Zuleta, M Christopher PA-C Unavailable Unavailable Zuleta, M Christopher PA-C Unavailable Unavailable Zuleta, M Christopher PA-C Unavailable Unavailable Zuleta, M Christopher PA-C Unavailable Unavailable Zuleta, M Christopher PA-C Unavailable Unavailable Zuleta, M Christopher PA-C Unavailable Unavailable Zuleta, M Christopher PA-C Unavailable Unavailable Zuleta, M Christopher PA-C Unavailable Unavailable Zuleta, M Christopher PA-C Unavailable Unavailable Zuleta, M Christopher PA-C Unavailable Unavailable Zuleta, M Christopher PA-C Unavailable Unavailable Zuleta, M Christopher PA-C Unavailable Unavailable Zuleta, M Christopher PA-C Unavailable Unavailable Zuleta, M Christopher PA-C Unavailable Unavailable Zuleta, M Christopher PA-C Unavailable Unavailable Zuleta, M Christopher PA-C Unavailable Unavailable Zuleta, M Christopher PA-C Unavailable Unavailable Zuleta, M Christopher PA-C Unavailable Unavailable JOLLY, W MANOJ PA Unavailable Unavailable JOLLY, W MANOJ PA Unavailable Unavailable JOLLY, W MANOJ PA Unavailable Unavailable JOLLY, W MANOJ PA Unavailable Unavailable JOLLY, W MANOJ PA Unavailable Unavailable JOLLY, W MANOJ PA Unavailable Unavailable JOLLY, W MANOJ PA Unavailable Unavailable JOLLY, W MANOJ PA Unavailable Unavailable JOLLY, W MANOJ PA Unavailable Unavailable JOLLY, W MANOJ PA Unavailable Unavailable JOLLY, W MANJO PA Unavailable Unavailable JOLLY, W MANOJ PA Unavailable Unavailable JOLLY, W MANOJ PA Unavailable Unavailable JOLLY, W MANOJ PA Unavailable Unavailable JOLLY, W MANOJ PA Unavailable Unavailable JOLLY, W MANOJ PA Unavailable Unavailable JOLLY, W MANOJ PA Unavailable Unavailable JOLLY, W MANOJ PA Unavailable Unavailable JOLLY, W MANOJ PA Unavailable Unavailable JOLLY, W MANOJ PA Unavailable Unavailable JOLLY, W MANOJ PA Unavailable Unavailable JOLLY, W MANOJ PA Unavailable Unavailable JOLLY, W MANOJ PA Unavailable Unavailable JOLLY, W MANOJ PA Unavailable Unavailable JOLLY, W MANOJ PA Unavailable Unavailable JOLLY, W MANOJ PA Unavailable Unavailable JOLLY, W MANOJ PA Unavailable Unavailable JOLLY, W MANOJ PA Unavailable Unavailable JOLLY, W MANOJ PA Unavailable Unavailable JOLLY, W MANOJ PA Unavailable Unavailable JOLLY, W MANOJ PA Unavailable Unavailable JOLLY, W MANOJ PA Unavailable Unavailable JOLLY, W MANOJ PA Unavailable Unavailable JOLLY, W MANOJ PA Unavailable Unavailable JOLLY, W MANOJ PA Unavailable Unavailable JOLLY, W MANOJ PA Unavailable Unavailable JOLLY, W MANOJ PA Unavailable Unavailable JOLLY, W MANOJ PA Unavailable Unavailable JOLLY, W MANOJ PA Unavailable Unavailable JOLLY, W MANOJ PA Unavailable Unavailable JOLLY, W MANOJ PA Unavailable Unavailable JOLLY, W MANOJ PA Unavailable Unavailable JOLLY, W MANOJ PA Unavailable Unavailable JOLLY, W MANOJ PA Unavailable Unavailable Re-disclosure Warning The records that you are about to access may contain information from federally-assisted alcohol or drug abuse programs. If such information is present, then the following federally mandated warning applies: This information has been disclosed to you from records protected by federal confidentiality rules (42 CFR part 2). The federal rules prohibit you from making any further disclosure of this information unless further disclosure is expressly permitted by the written consent of the person to whom it pertains or as otherwise permitted by 42 CFR part 2. A general authorization for the release of medical or other information is NOT sufficient for this purpose. The Federal rules restrict any use of the information to criminally investigate or prosecute any alcohol or drug abuse patient.The records that you are about to access may contain highly sensitive health information, the redisclosure of which is protected by Article 27-F of the [facility] Public Health law. If you continue you may have access to information: Regarding HIV / AIDS; Provided by facilities licensed or operated by the [facility] Office of Mental Health; or Provided by the [facility] Office for People With Developmental Disabilities. If such information is present, then the following [facility] mandated warning applies: This information has been disclosed to you from confidential records which are protected by state law. State law prohibits you from making any further disclosure of this information without the specific written consent of the person to whom it pertains, or as otherwise permitted by law. Any unauthorized further disclosure in violation of state law may result in a fine or group home sentence or both. A general authorization for the release of medical or other information is NOT sufficient authorization for further disc losure. Allergies and Adverse Reactions Type Description Substance Reaction Status Data Source(s ) [id number] Vicodin [facility] ([facility]) Encounters Encounter Providers Location Date Indications Data Source(s ) Preadmit Attender: Rajwinder DAVENPORT CPSCAORT-PRSLAOT 12:00:00 AM EDT S06.0X0D [facility] S06.0X0D Outpatient 05/06/2021 08:45:17 AM EDT [facility]MAKER ([facility]) OFFICE/OUTPATIENT VISIT, EST 05/04/2021Outpatient Attender: Oseas Duron OTR TRUCK DRIVER 05/04/2021 06:45:24 PM EDT CH[facility]MAK[facility] ([facility]) Outpatient Attender: Jt MURRIETA-CPSCANEU 05/01 03:44:00 PM EDT - 05/01/2021 03:45:00 PM EDT [facility] Patient discharged. [place] [address] [facility] [address] 04/24/2021 12:00:00 AM EDT eCW1 ([facility]) Outpatient Attender: Karena DAVENPORT 021 07:53:59 AM EDT - 04/06/2021 08:39:49 AM EDT DocuTap ([facility] ) Preadmit Attender: Rajwinder DAVENPORT CPSCAORT-PRSLAOT 12:00:00 AM EDT S06.0X0D [facility] S06.0X0D Outpatient Attender: Jt MURRIETA-CPSCANEU 03/29 10:46:00 AM EDT - 03/29/2021 10:47:00 AM EDT [facility] Patient discharged. [place] [address] [facility] [address] 03/22/2021 12:00:00 AM EDT eCW1 ([facility]) Outpatient Attender: RAMONA JOHNSON RPA 03/14 01:29:52 PM EDT - 03/14/2021 03:31:07 PM EDT [facility] ([facility] ) OFFICE/OUTPATIENT VISIT, EST 03/02/2021Outpatient Attender: Casa Duron NP 03/02/2021 05:35:17 PM EDT CHARTMAKER ([facility]) Outpatient Attender: Rajwinder DAVENPORT CPSCAORT-CPSCANEU 0 02/27/2021 11:11:00 AM EDT - 02/27/2021 11:12:00 AM EDT [facility] Patient [facility] [place] [address] [facility] [address] 02/23/2021 12:00:00 AM EDT eCW1 ([facility] [place] [address] [facility] [address] 02/15/2021 12:00:00 AM EDT [facility]CW1 [facility] OFFICE/OUTPATIENT VISIT, EST 01/12/2021Outpatient Attender: Oseas Duron NP 01/12/2021 06:05:48 PM EDT CHARTMAKER ([facility]) Outpatient Attender: Alfred Zuleta PA-C 01/10/2021 01:47:19 PM EDT - 01/10/2021 03:01:22 PM EDT [facility] ([facility]) [place] [address] [facility] [address] 12/20/2020 12:00:00 AM EDT eCW1 ([facility]) Outpatient Attender: Jt Atkins MD CPSCAORT-CPSCANEU 12/19 09:37:00 AM EDT - 12/19/2020 09:38:00 AM EDT [facility] Patient discharged. [place] [address] [facility] [address] 12/13/2020 12:00:00 AM EDT eCW1 ([facility]) [place] [address] [facility] [address] 12/05/2020 12:00:00 AM EDT eCW1 ([facility]) [place] [address] [facility] [address] 11/24/2020 12:00:00 AM EDT eCW1 ([facility]) OutpatientOFFICE/OUTPATIENT VISIT, EST 11/23/2020 Attender: ARNULFO DAVENPORT 11/23/2020 09:27:48 AM EDT CH[facility]MAKER ([facility]) [place] [address] [facility] [address] 11/16/2020 12:00:00 AM EDT eCW1 ([facility]) [place] [address] [facility] [address] 11/09/2020 12:00:00 AM EDT eCW1 ([facility]) [place] [address] [facility] [address] 11/08/2020 12:00:00 AM EDT eCW1 ([facility]) [place] [address] [facility] [place] [address] 10/20/2020 12:00:00 AM EDT eCW1 ([facility]) [place] [address] [facility] [address] 10/06/2020 12:00:00 AM EST eCW1 ([facility] [place] [address] [facility] [address] 10/05/2020 12:00:00 AM EST eCW1 ([facility] [place] [address] [facility] [place] [address] 10/05/2020 12:00:00 AM EST eCW1 ([facility]) [place] [address] [facility] [address] 10/04/2020 12:00:00 AM EST eCW1 ([facility]) Outpatient Attender: Joann hensley 10/03/2020 11:00:00 AM EST [facility] ([facility]) [place] [address] [facility] [place] [address] 09/05/2020 12:00:00 AM EST eCW1 ([facility]) [place] [address] [facility] [address] 08/24/2020 12:00:00 AM EST eCW1 ([facility]) [place] [address] [facility] [address] 08/18/2020 12:00:00 AM EST eCW1 ([facility]) [place] [address] [facility] [address] 08/17/2020 12:00:00 AM EST eCW1 ([facility]) [place] [address] [facility] [address] 08/11/2020 12:00:00 AM EST eCW1 ([facility]) [place] [address] [facility] [address] 08/11/2020 12:00:00 AM EST eCW1 ([facility]) Outpatient Attender: Jt Atkins MD CPSCAORT-CPSCANEU 07/06 08:43:00 AM EST - 07/06/2020 08:44:00 AM EST [facility] Patient discharged. OFFICE/OUTPATIENT VISIT, EST 06/08/2020Outpatient Attender: Steven DAVENPORT 06/08/2020 06:31:03 PM EST CHARTMAJOSEPHINE ([facility]) [place] [address] [facility] [address] 05/31/2020 12:00:00 AM EST eCW1 ([facility] Out[place] [address] [facility] [address] 05/18/2020 12:00:00 AM EDT eCW1 ([facility]) [place] [address] [facility] [address] 05/03/2020 12:00:00 AM EDT eCW1 ([facility]) [place] [address] [facility] [address] 04/28/2020 12:00:00 AM EDT eCW1 ([facility]) [place] [address] [facility] [address] 04/28/2020 12:00:00 AM EDT eCW1 ([facility]) Outpatient Attender: DELORES Cueva 04/20/2020 06:00:00 PM EDT MED[facility] ([facility]) Outpatient [facility] 03/24/2020 12:00:01 PM EDT [facility] OFFICE/OUTPATIENT VISIT, EST 03/22/2020Outpatient Attender: ARNULFO DAVENPORT 03/22/2020 11:01:57 AM EDT CHARTMAKER ([facility]) Immunizations Vaccine Date Status Description Data Source(s) COVID-19 VACCINE Pfizer 12/27/2020 12:00:00 AM EDT completed [facility] Vaccine Series Complete: YESThis Data wa s Submitted to [facility] Via [employer]. COVID-19 VACCINE Pfizer 12/04/2020 12:00:00 AM EDT completed [facility] Vaccine Series Complete: NOThis Data was Submitted to [facility] Via [employer]. Medications Medication Brand Name Start Date Product Form Dose Route Admi nistrative Instructions Pharmacy Instructions Status Indications Reaction Description Data Source(s) benzonatate 100 MG Oral Capsule BENZONATATE 05/18/2021 12:00:00 AM EDT capsule 30 TAKE ONE CAPSULE BY MOUTH THREE TIMES A DAY TAKE ONE CAPSULE BY MOUTH THREE TIMES A DAY SOLD: 05/18/2021 [facility] 90 mcg/actuation 05/18/2021 12:00:00 AM EDT HFA aerosol inha ler 8 INHALE TWO PUFFS BY MOUTH EVERY 4 HOURS NEEDED INHALE TWO PUFFS BY MOUTH EVERY 4 HOURS NEEDED SOLD: 05/18/2021 [facility]ational [facility] 05/07/2021 12:00:00 AM EDT active Occupational Therapy [facility] Prednisone 20 MG Oral Tablet predniSONE 20 mg tablet predniS ONE 20 mg tablet 05/04/2021 12:00:00 AM EDT 1 completed , Take 1 tablet orally Every 12 hours 05/04/2021 CHARTMAKER ([facility]) 20 mg 05/04/2021 12:00:00 AM EDT tablet 10 TAKE ONE TABLET BY MOUTH EVERY 12 HOURS TAKE ONE TABLET BY MOUTH EVERY 12 HOURS SOLD: 05/04/2021 [facility] 100 mg 05/04/2021 12:00:00 AM EDT tablet 20 TAKE ONE TABLET BY MOUTH TWICE A DAY TAKE ONE TABLET BY MOUTH TWICE A DAY SOLD: 05/04/2021 [facility] Fluticasone propionate 0.05 MG/ACTUAT Metered Dose Joel al B[place] 50 mcg/actuation FLUTICASONE PROPIONATE 05/04/2021 12:00:00 AM EDT spray,suspension 15 SPRAY 2 SPRAYS IN EACH NOSTRIL ONCE DAILY SPRAY 2 SPRAYS IN EACH NOSTRIL ONCE DAILY SOLD: 05/04/2021 [facility] doxycycline hyclate 100 MG Oral Capsule doxycycline hy clate 100 mg capsule doxycycline hyclate 100 mg capsule 05/04/2021 12:00:00 AM EDT 1 completed , Take 1 capsule orally Twice a day 05/04/2021 CHARTWYKER ([facility]) Flonase Allergy Relief 50 mcg/actuation nasal spray,suspensi on 05/04/2021 12:00:00 AM EDT 2 completed , Take 2 spray, suspension (mL) nasally Every day 05/04/2021 [facility] ([facility]) 25 mg 04/16/2021 12:00:00 AM EDT tablet 10 TAKE ONE TABLET BY MOUTH TWICE A DAY NEEDED TAKE ONE TABLET BY MOUTH TWICE A DAY NEEDED SOLD: 04/17/2021 [facility] 40 mg 04/16/2021 12:00:00 AM EDT tablet 60 TAKE ONE TABLET BY MOUTH TWICE A DAY TAKE ONE TABLET BY MOUTH TWICE A DAY SOLD: 04/17/2021 [facility] 20 mg 01/22/2021 12:00:00 AM EDT tablet 60 TAKE ONE TABLET BY MOUTH TWICE A DAY ON AN EMPTY STOMACH TAKE ONE TABLET BY MOUTH TWICE A DAY ON AN EMPTY STOMACH SOLD: 01/24/2021 [facility] 20 mg 01/22/2021 12:00:00 AM EDT tablet 60 TAKE ONE TABLET BY MOUTH TWICE A DAY ON AN EMPTY STOMACH TAKE ONE TABLET BY MOUTH TWICE A DAY ON AN EMPTY STOMACH SOLD: 04/06/2021 [facility] Amoxicillin 875 MG / Clavulanate 125 MG Oral Tablet amoxicillin 875 mg-potassium clavulanate 125 mg tablet amoxicillin 875 mg-potassium clavulanate 125 mg tablet 01/12/2021 12:00:00 AM EDT 1 completed 03/02/2021 CHARTMAKER ([facility]) Amoxicillin 875 MG / Clavulanate 125 MG Oral Tablet 87 5-125 mg AMOXICILLIN/POTASSIUM CLAV 01/12/2021 12:00:00 AM EDT tablet 20 TAKE ONE TABLET BY MOUTH EVERY 12 HOURS TAKE ONE TABLET BY MOUTH EVERY 12 HOURS SOLD: 01/12/2021 [facility] 100 mg 11/23/2020 12:00:00 AM EDT capsule 2 TAKE TWO CAPSULES BY MOUTH FOR 1 DOSE TAKE TWO CAPSULES BY MOUTH FOR 1 DOSE SOLD: 11/23/2020 [facility] doxycycline hyclate 100 MG Oral Capsule doxycycline hy clate 100 mg capsule doxycycline hyclate 100 mg capsule 11/23/2020 12:00:00 AM EDT 2 completed 01/12/2021 CHARTLEILANI ([facility]) 25 mg 11/09/2020 12:00:00 AM EDT tablet 30 TAKE ONE TABLET BY MOUTH EVERY MORNING WITH FOOD TAKE ONE TABLET BY MOUTH EVERY MORNING WITH FOOD SOLD: 11/09/2020 [facility] 25 mg 11/09/2020 12:00:00 AM EDT tablet 30 TAKE ONE TABLET BY MOUTH EVERY MORNING WITH FOOD TAKE ONE TABLET BY MOUTH EVERY MORNING WITH FOOD SOLD: 04/17/2021 [facility] 25 mg 11/09/2020 12:00:00 AM EDT tablet 30 TAKE ONE TABLET BY MOUTH EVERY MORNING WITH FOOD TAKE ONE TABLET BY MOUTH EVERY MORNING WITH FOOD SOLD: 03/20/2021 [facility] 25 mg 11/09/2020 12:00:00 AM EDT tablet 30 TAKE ONE TABLET BY MOUTH EVERY MORNING WITH FOOD TAKE ONE TABLET BY MOUTH EVERY MORNING WITH FOOD SOLD: 02/13/2021 [facility] 25 mg 11/09/2020 12:00:00 AM EDT tablet 30 TAKE ONE TABLET BY MOUTH EVERY MORNING WITH FOOD TAKE ONE TABLET BY MOUTH EVERY MORNING WITH FOOD SOLD: 12/14/2020 [facility] 25 mg 11/09/2020 12:00:00 AM EDT tablet 30 TAKE ONE TABLET BY MOUTH EVERY MORNING WITH FOOD TAKE ONE TABLET BY MOUTH EVERY MORNING WITH FOOD SOLD: 01/14/2021 [facility] 875-125 mg 10/05/2020 12:00:00 AM EST tablet 20 TAKE ONE TABLET BY MOUTH TWICE A DAY FOR 10 DAYS TAKE ONE TABLET BY MOUTH TWICE A DAY FOR 10 DAYS SOLD: 10/05/2020 [facility] Loratadine 10 MG Oral Capsule Loratadine 10/03/2020 12:00:00 AM EST ORAL active MEDENT ([facility]) Amitriptyline Hydrochloride 25 MG Oral Tablet AMITRIPTYLINE HCL 07/10/2020 12:00:00 AM EST tablet 30 TAKE ONE TABLET BY MOUTH EVERY DAY TAKE ONE TABLET BY MOUTH EVERY DAY SOLD: 07/10/2020 [facility] Amitriptyline Hydrochloride 25 MG Oral Tablet AMITRIPTYLINE HCL 07/10/2020 12:00:00 AM EST tablet 30 TAKE ONE TABLET BY MOUTH EVERY DAY TAKE ONE TABLET BY MOUTH EVERY DAY SOLD: 08/21/2020 [facility] Amitriptyline Hydrochloride 25 MG Oral Tablet AMITRIPTYLINE HCL 07/10/2020 12:00:00 AM EST tablet 30 TAKE ONE TABLET BY MOUTH EVERY DAY TAKE ONE TABLET BY MOUTH EVERY DAY SOLD: 09/19/2020 [facility] 875-125 mg 06/08/2020 12:00:00 AM EST tablet 14 TAKE ONE TABLET BY MOUTH EVERY 12 HOURS FOR 7 DAYS TAKE ONE TABLET BY MOUTH EVERY 12 HOURS FOR 7 DAYS SOLD: 06/08/2020 [facility] Amoxicillin 875 MG / Clavulanate 125 MG Oral Tablet [Augmentin] Augmentin 875 mg-125 mg tablet Augmentin 875 mg-125 mg tablet 06/08/2020 12:00:00 AM EST 1 completed 11/23/2020 CHARTMAKER ([facility]) 0.025 % 04/20/2020 12:00:00 AM EDT cream 15 APPLY A THIN LAYER TOPICALLY TO AFFECTED AREAS ON LEFT SIDE EVERY 12 HOURS AFTER FINISHING PREDNISONE UNTIL RESOLUTION APPLY A THIN LAYER TOPICALLY TO AFFECTED AREAS ON LEFT SIDE EVERY 12 HOURS AFTER FINISHING PREDNISONE UNTIL RESOLUTION SOLD: 04/20/2020 [facility] Prednisone 20 MG Oral Tablet Prednisone 04/20/2020 12:00:00 AM EDT ORAL completed MEDENT ([facility]) Amoxicillin 875 MG / Clavulanate 125 MG Oral Tablet Am oxicillin/Clavulanate Potassium 04/20/2020 12:00:00 AM EDT ORAL completed MEDENT ([facility]) Triamcinolone Acetonide 0.25 MG/ML Topical Cream Triamcinolo ne Acetonide 04/20/2020 12:00:00 AM EDT completed MEDENT ([facility]) 20 mg 04/20/2020 12:00:00 AM EDT tablet 8 TAKE ONE TABLET BY MOUTH TWICE A DAY FOR 4 DAYS TAKE ONE TABLET BY MOUTH TWICE A DAY FOR 4 DAYS SOLD: 2019 [facility] 875-125 mg 04/20/2020 12:00:00 AM EDT tablet 20 TAKE ONE TABLET BY MOUTH TWICE A DAY FOR 10 DAYS TAKE ONE TABLET BY MOUTH TWICE A DAY FOR 10 DAYS SOLD: 04/20/2020 [facility] 25 mg 03/22/2020 12:00:00 AM EDT tablet 30 TAKE ONE TABLET BY MOUTH EVERY DAY TAKE ONE TABLET BY MOUTH EVERY DAY SOLD: 03/22/2020 [facility] azelastine 137 mcg (0.1 %) nasal spray aerosol 03/22/2020 12:00:00 AM EDT 2 completed 06/08/2020 JESÚS Jarrell ([facility]) Potassium Chloride 20 MEQ Extended Relea se Oral Tablet potassium chloride ER 20 mEq tablet,extended release potassium chloride ER 20 mEq tablet,exte nded release 11/17/2019 12:00:00 AM EDT 2 completed 06/08/2020 ESTELA ([facility]) Chlorthalidone 25 MG Oral Tablet chlorthalidone 25 mg tablet chlorthalidone 25 mg tablet 11/16/2019 12:00:00 AM EDT 1 completed 01/12/2021 CHARTLEILANI ([facility]) Insurance Providers Payer name Policy type / Coverage type Policy ID Covered alliance party ID Covered alliance party's relationship to [place] Policy [place] Plan Information Medicaid Medicaid [id number] Self [id number] [facility] [employer] [facility] Commercial Insurance Co. [id number] Self [id number] [facility] [id number] Commercial Insurance [id number] ID IDENTIFICATION [id number] Other Insurance [id number] [employer] [id number] S [id number] [employer] [id number] S [id number] WC [id number] S [id number] MVP MCDHMO [id number] SP [id number] [employer] COMP [id number] SP [id number] [place] [id number] SP [id number] A MVP MCDHMO [id number] SP [id number] [employer] WCB# [id number] SP W CB# [id number] [employer] COMP [id number] SP [id number] [employer] COMP [id number] SP [id number] [employer] M[employer] COMP [id number] SP [id number] [place] [id number] SP [id number] [facility] [id number] SP [id number] [facility] HEALTH CARE [id number] SP [id number] [facility] HEALTH CARE [id number] SP [id number] [employer] [id number] SP [id number] [employer] COMP [id number] SP [id number] WC [id number] S [id number] [facility] [id number] SP [id number] [employer] COMP [id number] SP [id number] [employer] COMP [id number] SP [id number] [employer] [id number] SP [id number] [facility]) O [id number] S [id number] [facility] [id number] SP [id number] Self Pay P UNAVAILABLE S UNAVAILA BLE [employer] [id number] Other Insuranc e [id number] [facility] [id number] Commercial Insura nce [id number] [facility] [id number] SP [id number] [facility] [id number] SP [id number] [facility] [id number] SP [id number] [employer] [id number] Other Insuranc e [id number] [employer] [id number] Other Insurance [id number] [facility] [id number] Commercial Insura [facility] [id number] Problems, Conditions, and Diagnoses Code Display Name Description Problem Type Effective Dates Data Source(s) Z03.818 Encounter for observation fo r suspected exposure to other biological agents ruled out Encounter for observation for suspected exposure to other biological agents ruled out (Z03.818) 05/04/2021 [id number] 2020 06:45:24 PM EDT CHARTMAKER ([facility]) R05 Cough Cough (R05) 05/04/2021 [id number] 05/04/2021 06: 45:24 PM EDT CHARTMAKER ([facility]) R09.81 Nasal congestion Nasal congestion (R09.81) 05/04/2021 6 [id number] 05/04/2021 06:45:24 PM EDT CHARTMAKER ([facility]) M79.645 Pain in left finger(s) Pain in left finger(s) (M 79.645) 03/02/2021 [id number] 03/02/2021 05:35:17 PM EDT CHARTMAKER ([facility]) S61.221A Laceration with foreign body of left index finger without damage to nail, initial encounter Laceration with foreign body of left ind ex finger without damage to nail, initial encounter (S61.221A) 03/02/2021 [id number] 03/02/2021 05:35:17 PM EDT CHARTMAKER ([facility]) R09.82 Postnasal drip Postnasal drip (R09.82) 01/12/2021 [id number] 01/12/2021 06:05:48 PM EDT CHARTMAKER ([facility]) J01.00 Acute maxillary sinusitis, unspecified A cute maxillary sinusitis, unspecified (J01.00) 01/12/2021 [id number] 01/12/2021 06:05:48 PM EDT CH ARTMAKER ([facility]) R09.81 Nasal congestion Nasal congestion (R09.81) 01/12/2021 6 [id number] 01/12/2021 06:05:48 PM EDT CHARTMAKER ([facility]) K57.90 [id number] Diverticulosis Problem 12/05/2020 12:00:00 A M EDT [facility] N28.89 [id number] Renal mass, right Problem 12/05/2020 12:00:0 0 AM EDT [facility]CW1 [facility]) S20.361A Insect bite (nonvenomous) of right front wall of thorax, initial encounter Insect bite (nonvenomous) of right front wall of thorax, initial encounter (S20.361A) 11/23/2020 [id number] 11/23/2020 09:27:48 AM EDT ARTMAKER ([facility]) S61.401A Unspecified open wound of right hand, in itial encounter Unspecified open wound of right hand, initial encounter (S61.401A) 11/23/2020 [id number] 06/08/2020 06:31:03 PM EST - 11/23/2020 12:00:00 AM EDT CHARTMAKER ([facility]) W55.01XA Bitten by cat, initial encounter Bitten by cat, initial encounter (W55.01XA) 11/23/2020 [id number] 06/08/2020 06:31:03 PM EST - 11/23/2020 12:00:00 AM EDT CHARTMAKER ([facility]) G44.309 [id number] Post-traumatic headache, unspecified, not intractable Problem 05/17/2020 12:00:00 AM EDT [facility]CW[facility]) R07.9 Chest pain, unspecified Chest pain, unspecified (R07.9) 06/08/2020 [id number] 03/22/2020 11:01:57 AM EDT - 06/08/2020 12:00:00 AM ES T CHARTMAKER ([facility]) R09.81 Nasal congestion Nasal congestion (R09.81) 06/08/2020 [id number] 03/22/2020 11:01:57 AM EDT - 06/08/2020 12:00:00 AM EST CHARTMAKER ([facility]) I10 Essential (primary) hypertension Essenti al (primary) hypertension (I10) 06/08/2020 [id number] 11/16/2019 12:14:27 PM EDT - 06/08/2020 12:00:00 AM EST CHARTMAKER ([facility]) Surgeries/Procedures Procedure Description Date Indications Data Source(s) [facility] PRV OFFICE REG SCHEDD EVN /HOLIDAY HRS 2020 12:00:00 AM EDT CHARTMAKER ([facility]) INFECTIOUS AGENT DETECTION BY NUCLEIC ACID 05/04/2021 05/04/2021 12:00:00 AM EDT CH[facility]MAK[facility] ([facility]) [facility] PRV OFFICE REG SCHEDD EVN /HOLIDAY HRS 2020 12:00:00 AM EDT CHARTMAKER ([facility]) SIMPLE REPAIR SCALP/NECK/AX/GENIT/TRUNK 2.5CM/< 2020 12:00:00 AM EDT CHARTMAKER ([facility]) [facility] PRV OFFICE REG SCHEDD EVN /HOLIDAY HRS 2020 12:00:00 AM EDT CHARTMAKER ([facility]) [facility] PRV OFFICE REG SCHEDD EVN /HOL HRS 2019 12:00:00 AM EST CHARTMAKER ([facility]) ECG ROUTINE ECG W/LEAST 12 LDS W/I&R 03/22/2020 12:00: 00 AM EDT CHARTMAKER ([facility]) Results ID Date Data Source [id number] 05/07/2021 07:32:00 PM EDT [facility]KER ([facility]) EXAM: Chest 2V INDICATION: cough for 8 m onth TECHNIQUE: PA and lateral views of the chest were obtained. COMPARISON: None available at the time of this dictation. FINDINGS: Cardiomediastinal contours are within normal limits. The lungs are clear. No pleural effusion or pneumothorax. No acute osseous abnormality. Prior right rotator cuff repair. IMPRESSION: No acute cardiopulmonary process. X5 Name Value Range Interpretation Code Description Data Lorenza rce(s) Supporting Document(s) ID Date Data Source [id number] 05/04/2021 12:00:00 AM EDT [facility] Name Value Range Interpretation Code Description Data Lorenza rce(s) Supporting Document(s) NAAT NEGATIVE [facility] This lab was ordered by [facility] and reported by [facility]. ID Date Data Source [id number] 04/06/2021 08:45:00 AM EDT [facility] Name Value Range Interpretation Code Description Data Lorenza rce(s) Supporting Document(s) SARS-CoV-2 RNA Resp Ql PEYMAN+probe NOT DETECTED [facility] This lab was ordered by [facility] and reported by [facility]. ID Date Data Source [id number] 11/17/2020 11:50:00 AM EDT [facility] Name Value Range Interpretation Code Description Data Lorenza rce(s) Supporting Document(s) SARS-CoV-2 (COVID-19) RNA [Presence] in Respiratory specimen by PEYMAN with probe detection Not Detected [facility] This lab was ordered by [facility] and reported by [email or web address] ID Date Data Source [id number] 10/18/2020 01:20:00 PM EDT [facility] Name Value Range Interpretation Code Description Data Lorenza rce(s) Supporting Document(s) SARS coronavirus 2 RNA Not Detected [facility] This lab was ordered by [facility] and reported by [facility]. ID Date Data Source [id number] 10/04/2020 09:55:00 AM EST [facility] Name Value Range Interpretation Code Description Data Lorenza rce(s) Supporting Document(s) SARS coronavirus 2 RNA Not Detected [facility] This lab was ordered by [facility] and reported by [facility]. Procedure Social History Code Duration Value Status Description Data Source(s ) Smoking 05/04/2021 12:00:00 AM EDT Never smoker completed Never s moker [facility]MAKER ([facility]) Smoking 03/22/2021 12:00:00 AM EDT Never Smoker completed Never S moker [facility] Smoking 03/22/2021 12:00:00 AM EDT Never Smoker completed Never S moker eCW1 ([facility]) Smoking 02/23/2021 12:00:00 AM EDT Never Smoker completed Never S moker eCW1 ([facility]) Smoking 12/05/2020 12:00:00 AM EDT Never Smoker completed Never S moker eCW1 ([facility]) Smoking 12/05/2020 12:00:00 AM EDT Never Smoker completed Never S moker eCW1 ([facility]) Smoking 12/05/2020 12:00:00 AM EDT Never Smoker completed Never S moker eCW1 ([facility]) Smoking 12/05/2020 12:00:00 AM EDT Never Smoker completed Never S moker eCW1 ([facility]) Smoking 11/24/2020 12:00:00 AM EDT Never Smoker completed Never S moker eCW1 ([facility]) Smoking 11/23/2020 12:00:00 AM EDT Never smoker completed Never s moker CH[facility]MAKER ([facility]) Smoking 10/20/2020 12:00:00 AM EDT Never Smoker completed Never S moker eCW1 ([facility]) Smoking 10/20/2020 12:00:00 AM EDT Never Smoker completed Never S moker eCW1 ([facility]) Smoking 10/20/2020 12:00:00 AM EDT Never Smoker completed Never S moker eCW1 ([facility]) Smoking 10/20/2020 12:00:00 AM EDT Never Smoker completed Never S moker eCW1 ([facility]) Smoking 10/06/2020 12:00:00 AM EST Never Smoker completed Never S moker eCW1 ([facility]) Smoking 10/06/2020 12:00:00 AM EST Never Smoker completed Never S moker eCW1 ([facility]) Smoking 10/06/2020 12:00:00 AM EST Never Smoker completed Never S moker eCW1 ([facility]) Smoking 10/06/2020 12:00:00 AM EST Never Smoker completed Never S moker eCW1 ([facility]) Smoking 09/05/2020 12:00:00 AM EST Never Smoker completed Never S moker eCW1 ([facility]) Smoking 08/24/2020 12:00:00 AM EST Never Smoker completed Never S moker eCW1 ([facility]) Smoking 08/24/2020 12:00:00 AM EST Never Smoker completed Never S moker eCW1 ([facility]) Smoking 08/24/2020 12:00:00 AM EST Never Smoker completed Never S moker eCW1 ([facility]) Smoking 08/24/2020 12:00:00 AM EST Never Smoker completed Never S moker eCW1 ([facility]) Smoking 08/16/2020 12:00:00 AM EST Never Smoker completed Never S moker eCW1 ([facility]) Smoking 05/25/2020 12:00:00 AM EDT Never Smoker completed Never S moker eCW1 ([facility]) Smoking 05/25/2020 12:00:00 AM EDT Never Smoker completed Never S moker eCW1 ([facility]) Smoking 05/18/2020 12:00:00 AM EDT Never Smoker completed Never S moker eCW1 ([facility]) Smoking 05/18/2020 12:00:00 AM EDT Never Smoker completed Never S moker eCW1 ([facility]) Smoking 05/18/2020 12:00:00 AM EDT Never Smoker completed Never S moker eCW1 ([facility]) Smoking 04/20/2020 12:00:00 AM EDT Never Smoked Cigarettes com pleted Never Smoked Cigarettes MEDENT ([facility]) Smoking 03/22/2020 12:00:00 AM EDT Never smoker completed Never s moker CH[facility]MAKER ([facility]) Vital Signs ID Date Data Source UNK Name Value Range Interpretation Code Description Data Source(s) Heart rate 74 /min 74 /min [facility]MAKER ([facility]) Systolic blood pressure 110 mm[Hg] 110 mm[Hg] C HARTMAKER ([facility]) Diastolic blood pressure 78 mm[Hg] 78 mm[Hg] CH[facility]MAKER ([facility]) Body weight 205 [lb_av] 205 [lb_av] CH[facility]MAKER ([facility]) Oxygen saturation in Arterial blood by Pulse oximetry 96 % 96 % CH[facility]KER ([facility]) Inhaled oxygen concentration 21 % 21 % CHARTMAKER ([facility]) Body temperature 98 [degF] 98 [degF] CHARTMAK ER ([facility]) Body weight 200.6 [lb_av] 200.6 [lb_av] eCW1 ([facility]) Body weight 90.99 kg 90.99 kg eCW1 ([facility]) Body height 67 [in_i] 67 [in_i] eCW1 ([facility]) Body mass index (BMI) [Ratio] 31.41 kg/m2 31.41 kg/m2 [facility] Heart rate 76 /min 76 /min eCW1 ([facility]) Respiratory rate 18 /min 18 /min eCW1 ([facility]) Body temperature 97.5 [degF] 97.5 [degF] eCW1 [facility] Systolic blood pressure 122 mm[Hg] 122 mm[Hg] e CW1 ([facility]) Diastolic blood pressure 64 mm[Hg] 64 mm[Hg] eCW1 [facility] Body height 64 [in_i] 64 [in_i] CHARTMAKER ([facility]) Body mass index (BMI) [Ratio] 34.962248740547 kg/m2 34.448490410266 kg/m2 CHARTMAKER ([facility]) Body weight 193 [lb_av] 193 [lb_av] eCW1 ([facility]) Body height 67 [in_i] 67 [in_i] eCW1 ([facility]) Body mass index (BMI) [Ratio] 30.22 kg/m2 30.22 kg/m2 eCW1 [facility] Heart rate 63 /min 63 /min eCW1 ([facility]) Respiratory rate 17 /min 17 /min eCW1 ([facility]) Body temperature 97.9 [degF] 97.9 [degF] eCW1 ( [facility] Systolic blood pressure 108 mm[Hg] 108 mm[Hg] e CW1 ([facility]) Diastolic blood pressure 73 mm[Hg] 73 mm[Hg] eCW1 [facility] Body weight 190 [lb_av] 190 [lb_av] eCW1 ([facility]) Body height 67 [in_i] 67 [in_i] eCW1 ([facility]) Body mass index (BMI) [Ratio] 29.75 kg/m2 29.75 kg/m2 eCW1 [facility]) Heart rate 96 /min 96 /min eCW1 ([facility]) Respiratory rate 18 /min 18 /min eCW1 ([facility]) Body temperature 97.7 [degF] 97.7 [degF] eCW1 ( [facility] Systolic blood pressure 104 mm[Hg] 104 mm[Hg] e CW1 ([facility]) Diastolic blood pressure 84 mm[Hg] 84 mm[Hg] eCW1 [facility]) Body temperature 97.5 [degF] 97.5 [degF] VIV RVIERO ([facility]) Heart rate 44 /min 44 /min CHARTBHAVESHKER ([facility]) Systolic blood pressure 110 mm[Hg] 110 mm[Hg] C HARTMAKER ([facility]) Diastolic blood pressure 70 mm[Hg] 70 mm[Hg] CHARTMAKER ([facility]) Body height 66 [in_i] 66 [in_i] [facility]KER ([facility]) Body weight 193.3125 [lb_av] 193.3125 [lb_av] C HARTMAKER ([facility]) Body mass index (BMI) [Ratio] 31.4724717316115 kg/m2 31.4182729410658 kg/m2 CHARTMAKER ([facility]) Oxygen saturation in Arterial blood by Pulse oximetry 97 % 97 % CHARTMAKER ([facility]) Inhaled oxygen concentration 21 % 21 % CHARTMAKER ([facility]) Systolic blood pressure 130 mm[Hg] 130 mm[Hg] M EDENT ([facility], [facility]) Diastolic blood pressure 86 mm[Hg] 86 mm[Hg] MEDENT ([facility], [facility]) Heart rate 90 /min 90 /min MEDENT ([facility]) Respiratory rate 16 /min 16 /min MEDENT ( [facility], [facility]) Oxygen saturation in Arterial blood by Pulse oximetry 98 % 98 % MEDENT ([facility], [facility]) Body temperature 97.1 [degF] 97.1 [degF] MEDENT ([facility], [facility]) Body weight 170.00 [lb_av] 170.00 [lb_av] MEDEN T ([facility], [facility]) Body height 66 [in_i] 66 [in_i] MEDENT ([facility]) 5'6" Body mass index (BMI) [Ratio] 27.4 kg/m2 27.4 k g/m2 MEDENT ([facility]) Body weight 187 [lb_av] 187 [lb_av] eCW1 ([facility]) Body height 67 [in_i] 67 [in_i] eCW1 ([facility]) Body mass index (BMI) [Ratio] 29.29 kg/m2 29.29 kg/m2 W1 ([facility]) Heart rate 71 /min 71 /min eCW1 ([facility]) Respiratory rate 16 /min 16 /min eCW1 ([facility]) Body temperature 96.5 [degF] 96.5 [degF] eCW1 ( [facility]) Systolic blood pressure 161 mm[Hg] 161 mm[Hg] e CW1 ([facility]) Diastolic blood pressure 94 mm[Hg] 94 mm[Hg] eCW1 ([facility]) Body weight 184 [lb_av] 184 [lb_av] eCW1 ([facility]) Body height 67 [in_i] 67 [in_i] eCW1 ([facility]) Body mass index (BMI) [Ratio] 28.82 kg/m2 28.82 kg/m2 W1 ([facility]) Heart rate 70 /min 70 /min eCW1 ([facility]) Respiratory rate 16 /min 16 /min eCW1 ([facility]) Body temperature 98.9 [degF] 98.9 [degF] eCW1 ( [facility]) Systolic blood pressure 99 mm[Hg] 99 mm[Hg] e CW1 ([facility]) Diastolic blood pressure 71 mm[Hg] 71 mm[Hg] eCW1 ([facility]) Body weight 186.2 [lb_av] 186.2 [lb_av] eCW1 ([facility]) Body height 67 [in_i] 67 [in_i] eCW1 ([facility]) Body mass index (BMI) [Ratio] 29.16 kg/m2 29.16 kg/m2 eCW1 ([facility]) Heart rate 93 /min 93 /min eCW1 ([facility]) Respiratory rate 18 /min 18 /min eCW1 ([facility]) Body temperature 97.7 [degF] 97.7 [degF] eCW1 ( [facility]) Systolic blood pressure 118 mm[Hg] 118 mm[Hg] e CW1 ([facility]) Diastolic blood pressure 82 mm[Hg] 82 mm[Hg] eCW1 ([facility]) Respiratory rate 16 /min 16 /min CHARTMAK ER ([facility]) Body weight 174.2 [lb_av] 174.2 [lb_av] eCW1 ([facility]) Body height 67 [in_i] 67 [in_i] eCW1 ([facility]) Body mass index (BMI) [Ratio] 27.28 kg/m2 27.28 kg/m2 eCW1 ([facility]) Heart rate 69 /min 69 /min eCW1 ([facility]) Respiratory rate 18 /min 18 /min eCW1 ([facility]) Body temperature 97.1 [degF] 97.1 [degF] eCW1 ( [facility]) Systolic blood pressure 120 mm[Hg] 120 mm[Hg] e CW1 ([facility]) Diastolic blood pressure 92 mm[Hg] 92 mm[Hg] eCW1 ([facility]) Systolic blood pressure 130 mm[Hg] 130 mm[Hg] M EDENT ([facility], [facility]) Diastolic blood pressure 84 mm[Hg] 84 mm[Hg] MEDENT ([facility], [facility]) Heart rate 75 /min 75 /min MEDENT ([facility], [facility]) Respiratory rate 18 /min 18 /min MEDENT ( [facility], [facility]) Oxygen saturation in Arterial blood by Pulse oximetry 97 % 97 % MEDENT ([facility], [facility]) Body temperature 98.0 [degF] 98.0 [degF] MEDENT ([facility], [facility]) Body weight 170.00 [lb_av] 170.00 [lb_av] MEDEN T ([facility], [facility]) Body height 66 [in_i] 66 [in_i] MEDENT ([facility]) 5'6" Body mass index (BMI) [Ratio] 27.4 kg/m2 27.4 k g/m2 MEDENT ([facility], [facility]) Body temperature 97.5 [degF] 97.5 [degF] CHARTM MAT ([facility]) Heart rate 70 /min 70 /min CHARTMAKER ([facility]) Systolic blood pressure 150 mm[Hg] 150 mm[Hg] C HARTMAKER ([facility]) Diastolic blood pressure 100 mm[Hg] 100 mm[Hg] CHARTMAKER ([facility]) Body height 65 [in_i] 65 [in_i] CHARTMAKER ([facility]) Body weight 175 [lb_av] 175 [lb_av] CHARTMAKER ([facility]) Body mass index (BMI) [Ratio] 29.1635435665783 kg/m2 29.1341451249098 kg/m2 CHARTMAKER ([facility]) Oxygen saturation in Arterial blood by Pulse oximetry 97 % 97 % CHARTMAKER ([facility]) Inhaled oxygen concentration 21 % 21 % CHARTMAKER ([facility]) Patient Treatment Plan of Care Planned Activity Planned Date Details Description Data Source (s) Occupational Therapy 05/07/2021 12:00:00 AM EDT eCW1 ([facility])
--- OUTSIDE RECORDS SUMMARY | 2021-05-21 16:19 | CCD ---
Author Author [facility] Syst em[facility] Organization [facility] Syst ems Address Unknown Phone Unavailable Care Team Providers Care Supervisor [employer] Name Role Phone Amy Cabello Unavailable PROBLEMS Type Condition ICD9-CM Code [id number] Code Onset Dates Condition S tatus W/U Status Risk SNOMED Code Notes Problem Renal mass, right N28.89 Active confirmed 30 5049702 Problem Diverticulosis K57.90 Active confirmed 18203 1000 Problem Post concussion syndrome F07.81 Active confirmed [id number] He is seeing the neurologist, and he continues his physical therapy for balance Problem Essential hypertension I10 Active confirmed [id number] I encouraged him to establish with a primary care provider as soon as possible Problem Post-traumatic headache, unspecified, not intractable G44.309 Active confirmed [id number] His new neurolog ist is following this ALLERGIES Allergen (clinical drug ingredient) Drug/Non Drug Allergy do cumented on EMR Reaction Allergy Type Onset Date Status Vicodin "gets really hot" Drug Allergy Activ e ENCOUNTERS from 1960 to 2021-03-23 Encounter Location Date Provider Diagnosis [address] [phone] [place] [address] Feb, Amy Cabello Post concussion syndrome F07 .81 and Post-traumatic headache, unspecified, not intractable G44.309 IMMUNIZATIONS No Information SOCIAL HISTORY Tobacco Use: Social History Observation Description Date Details (start date - stop date) Never Smoker Sex Assigned At : Social History Observation Description Sex Assigned At Unknown Education: Question Answer Notes Level of Education: High School Language: Question Answer Notes Languages spoken: Filipino Buddhism: Question Answer Notes Buddhism No evangelical beliefs that would impact health care. Alcohol Screening: Question Answer Notes Did you have a drink containing alcohol in the past year? No Points 0 Interpretation Negative Tobacco Use: Question Answer Notes Are you a: never smoker REASON FOR REFERRAL No Information VITAL SIGNS Weight 200.6 lbs Feb, Weight-kg 90.99 kg Feb, Height 67 in Feb, BMI 31.41 kg/m2 Feb, Heart Rate 76 /min Feb, Respiratory Rate 18 /min Feb, Temperature 97.5 degrees Fahrenheit Feb, Oximetry 97 Feb, Blood pressure systolic 122 mm Hg Feb, Blood pressure diastolic 64 mm Hg Feb, MEDICATIONS Medication SIG (Take, Route, Frequency, Duration) Notes Start Da te End Date Status Ibuprofen 200 MG 2 tablets Orally Twice a day Not-Taking Chlorthalidone 25 MG 1 tablet in the morning with food Orally Once a day for 90 day(s) Active Amitriptyline HCl 25 MG 1-2 tabs at bedtime Orally Once a day for 30 Days Active Physical Therapy evaluate and treat mechanical eval & tx F07.81, post-concussion syndrome 3 x/wk x for 30 Days November, Ac tive PROCEDURES No Information RESULTS No Results REASON FOR VISIT follow up MEDICAL (GENERAL) HISTORY Type Description Date Medical [...] No Information FUNCTIONAL STATUS No Information ASSESSMENTS Encounter Date Diagnosis Assessment Notes Treatment Notes Treatm ent Clinical Notes Feb, Post concussion syndrome (ICD-10 - F07.8 1) He is seeing the neurologist, and he continues his physical therapy for balance Feb, Post-traumatic headache, uns pecified, not intractable (ICD-10 - G44.309) His new neurologist is following this PLAN OF TREATMENT Next Appt Details 3 Months, 60 min Reason:w/c - postconcus randell syndrome Provider Name:Amy Cabello, 2020-11-1 9 11:00:00 AM, [address] [place] [address], , [place], [address], Follow Up:3 Months, 60 minw/c - postconcussion syndrome Insurance Providers Payer Name Payer Address Payer Phone Insured Name Patient Relati onship to Insured Coverage Start Date Coverage End Date [place] [address] [facility] [id number] ERLINDA DUNN self 2019
--- OUTSIDE RECORDS SUMMARY | 2021-05-21 16:19 | CCD ---
Author Author [facility] [facility] Organization [facility] Syst ems Address Unknown Phone Unavailable Care Team Providers Care Live Out Nanny Name Role Phone EvonneAdrienne riddle Unavailable PROBLEMS Type Condition ICD9-CM Code [id number] Code Onset Dates Condition S tatus W/U Status Risk SNOMED Code Notes Problem Renal mass, right N28.89 Active confirmed 30 3848660 Problem Diverticulosis K57.90 Active confirmed 60752 1000 Problem Post concussion syndrome F07.81 Active confirmed [id number] He is seeing the neurologist, and he continues his physical therapy for balance Problem Essential hypertension I10 Active confirmed [id number] I encouraged him to establish with a primary care provider as soon as possible Problem Post-traumatic headache, unspecified, not intractable G44.309 Active confirmed 66908050 His new neurolog ist is following this ALLERGIES Allergen (clinical drug ingredient) Drug/Non Drug Allergy do cumented on EMR Reaction Allergy Type Onset Date Status Vicodin "gets really hot" Drug Allergy Activ e ENCOUNTERS from 1960 to 2021-05-19 Encounter Location Date Provider Diagnosis [facility] [address] [facility] [phone] [place] [address] Mar, Adrienne Douglass IMMUNIZATIONS No Information SOCIAL HISTORY Tobacco Use: Social History Observation Description Date Details (start date - stop date) Never Smoker Sex Assigned At : Social History Observation Description Sex Assigned At Unknown Education: Question Answer Notes Level of Education: High School Language: Question Answer Notes Languages spoken: Bolivian Tenriism: Question Answer Notes Tenriism No rastafari beliefs that would impact health care. Alcohol [...] 2 tablets Orally Twice a day Not-Taking Occupational Therapy Eval and treat For postconcu ssion syndrome, F07.81 3 x/wk x for 30 Days Apr, Active Chlorthalidone 25 MG 1 tablet in the [...] Information RESULTS No Results REASON FOR VISIT Occupational Therapy Referral MEDICAL (GENERAL) HISTORY Type Description Date Medical [...] Information ASSESSMENTS No Information PLAN OF TREATMENT Medication Medication Name Sig Start Date Stop Date Occupational Therapy Eval and treat For postconcu ssion syndrome, F07.81 3 x/wk x for 30 Days Apr, Next Appt Details Provider Name:Amy Cabello, 2021-05-1 9 11:00:00 AM, [address] [facility], , [place], [address], Insurance Providers Payer Name Payer Address Payer Phone Insured Name Patient Relati onship to Insured Coverage Start Date [facility]age End Date [facility] [address] [facility] [id number] ERLINDA DUNN 2019
--- OUTSIDE RECORDS SUMMARY | 2021-05-21 17:09 | CCD ---
Author Author [facility] Organization [facility] Address Unknown Phone Unavailable Care Team Providers Care Filter Assembler Name Role Phone Aguilar Joann CIGAR HEAD PEGGER Unavailable Unavailable Aguilar, Joann CIGAR HEAD PEGGER Unavailable Unavailable Aguilar, Joann CIGAR HEAD PEGGER Unavailable Unavailable Aguilar, Joann CIGAR HEAD PEGGER Unavailable Unavailable Aguilar, Joann CIGAR HEAD PEGGER Unavailable Unavailable Aguilar, Joann CIGAR HEAD PEGGER Unavailable Unavailable Aguilar, Joann CIGAR HEAD PEGGER Unavailable Unavailable Aguilar, Joann CIGAR HEAD PEGGER Unavailable Unavailable Aguilar, Joann CIGAR HEAD PEGGER Unavailable Unavailable Aguilar, Joann CIGAR HEAD PEGGER Unavailable Unavailable Aguilar, Joann CIGAR HEAD PEGGER Unavailable Unavailable Aguilar, Joann CIGAR HEAD PEGGER Unavailable Unavailable Aguilar, Joann CIGAR HEAD PEGGER Unavailable Unavailable Scarlet Garcia Rajwinder PA PA Unavailable [phone] Garcia, Scarlet Rajwinder PA PA Unavailable [phone] Garcia, Scarlet Rajwinder PA PA Unavailable [phone] Garcia, E Rajwinder PA PA Unavailable [phone] Scarlet Garcia Rajwinder PA PA Unavailable [phone] Sofía Duron CIGAR HEAD PEGGER Unavailable Unavailable Sofía Duron CIGAR HEAD PEGGER Unavailable Unavailable Potter, M Chaya CIGAR HEAD PEGGER Unavailable Unavailable Potter, M Chaya CIGAR HEAD PEGGER Unavailable Unavailable Potter, M Chaya CIGAR HEAD PEGGER Unavailable Unavailable Potter, M Chaya CIGAR HEAD PEGGER Unavailable Unavailable Potter, M Chaya CIGAR HEAD PEGGER Unavailable Unavailable Potter, M Chaya CIGAR HEAD PEGGER Unavailable Unavailable Potter, M Chaya CIGAR HEAD PEGGER Unavailable Unavailable Potter, M Chaya CIGAR HEAD PEGGER Unavailable Unavailable Potter, M Chaya CIGAR HEAD PEGGER Unavailable Unavailable Potter, M Chaya CIGAR HEAD PEGGER Unavailable Unavailable Potter, M Chaya CIGAR HEAD PEGGER Unavailable Unavailable Potter, M Chaya CIGAR HEAD PEGGER Unavailable Unavailable Potter, M Chaya CIGAR HEAD PEGGER Unavailable Unavailable Potter, M Chaya CIGAR HEAD PEGGER Unavailable Unavailable Potter, M Chaya CIGAR HEAD PEGGER Unavailable Unavailable Potter, M Chaya CIGAR HEAD PEGGER Unavailable Unavailable Potter, M Chaya CIGAR HEAD PEGGER Unavailable Unavailable Potter, M Chaya CIGAR HEAD PEGGER Unavailable Unavailable Potter, M Chaya CIGAR HEAD PEGGER Unavailable Unavailable Potter, M Chaya CIGAR HEAD PEGGER Unavailable Unavailable Potter, M Chaya CIGAR HEAD PEGGER Unavailable Unavailable Potter, M Chaya CIGAR HEAD PEGGER Unavailable Unavailable Potter, M Chaya CIGAR HEAD PEGGER Unavailable Unavailable Potter, M Chaya CIGAR HEAD PEGGER Unavailable Unavailable Potter, M Chaya CIGAR HEAD PEGGER Unavailable Unavailable Potter, M Chaya CIGAR HEAD PEGGER Unavailable Unavailable Potter, M Chaya CIGAR HEAD PEGGER Unavailable Unavailable Potter, M Chaya CIGAR HEAD PEGGER Unavailable Unavailable Potter, M Chaya CIGAR HEAD PEGGER Unavailable Unavailable Potter, M Chaya CIGAR HEAD PEGGER Unavailable Unavailable Potter, M Chaya CIGAR HEAD PEGGER Unavailable Unavailable Potter, M Chaya CIGAR HEAD PEGGER Unavailable Unavailable Potter, M Chaya CIGAR HEAD PEGGER Unavailable Unavailable Potter, M Chaya CIGAR HEAD PEGGER Unavailable Unavailable Potter, M Chaya CIGAR HEAD PEGGER Unavailable Unavailable Potter, M Chaya CIGAR HEAD PEGGER Unavailable Unavailable Potter, M Chaya CIGAR HEAD PEGGER Unavailable Unavailable Potter, M Chaya CIGAR HEAD PEGGER Unavailable Unavailable Potter, M Chaya CIGAR HEAD PEGGER Unavailable Unavailable Potter, M Chaya CIGAR HEAD PEGGER Unavailable Unavailable Potter, M Chaya CIGAR HEAD PEGGER Unavailable Unavailable Potter, M Chaya CIGAR HEAD PEGGER Unavailable Unavailable Potter, M Chaya CIGAR HEAD PEGGER Unavailable Unavailable Potter, M Chaya CIGAR HEAD PEGGER Unavailable Unavailable Potter, M Chaya CIGAR HEAD PEGGER Unavailable Unavailable Potter, M Chaya CIGAR HEAD PEGGER Unavailable Unavailable Potter, M Chaya CIGAR HEAD PEGGER Unavailable Unavailable Potter, M Chaya CIGAR HEAD PEGGER Unavailable Unavailable Potter, M Chaya CIGAR HEAD PEGGER Unavailable Unavailable Potter, M Chaya CIGAR HEAD PEGGER Unavailable Unavailable Potter, M Chaya CIGAR HEAD PEGGER Unavailable Unavailable Potter, M Chaya CIGAR HEAD PEGGER Unavailable Unavailable Potter, M Chaya CIGAR HEAD PEGGER Unavailable Unavailable Potter, M Chaya CIGAR HEAD PEGGER Unavailable Unavailable Potter, M Chaya CIGAR HEAD PEGGER Unavailable Unavailable Potter, M Chaya CIGAR HEAD PEGGER Unavailable Unavailable Burrell, Yaniv PA Unavailable Unavailable [...] Unavailable Unavailable Malek, Garret Waters MD Unavailable [phone] Malek, Garret Waters MD Unavailable [phone] Malek, Garret Waters MD Unavailable [phone] Malek, Garret Waters MD Unavailable [phone] Malek, Garret Waters MD Unavailable [phone] Malek, Garret Waters MD Unavailable [phone] Malek, T Hamza MD Unavailable [phone] Malek, T Hamza MD Unavailable [phone] Malek, T Hamza MD Unavailable [phone] Malek, T Hamza MD Unavailable [phone] Malek, T Hamza MD Unavailable [phone] [phone] T Hamza MD Unavailable [phone] Malek, T Hamza MD Unavailable [phone] [phone], T Hamza MD Unavailable [phone] [phone], T Hamza MD Unavailable [phone] Malek, T Hamza MD Unavailable [phone] [phone], T Hamza MD Unavailable [phone] Malek, T Hamza MD Unavailable [phone] Malek, T Hamza MD Unavailable [phone] Malek, T Hamza MD Unavailable [phone] Malek, T Hamza MD Unavailable [phone] Malek, T Hamza MD Unavailable [phone] RING, K DELORES PA Unavailable Unavailable RING, [...] is protected by Article 27-F of the [facility] Public Health law. If you continue you may have access to information: Regarding HIV / AIDS; Provided by facilities licensed or operated by the [facility] Office of Mental Health; or Provided by the [facility] Office for People With Developmental Disabilities. If such information is present, then the following [facility] mandated warning applies: This information has been [...] law may result in a fine or alf sentence or both. A general authorization for the release of medical or other information is NOT sufficient authorization for further disc losure. Allergies and Adverse Reactions Type Description Substance Reaction Status Data Source(s ) [id number] Vicodin CHARTMAKER ([facility]) Encounters Encounter Providers Location Date Indications Data Source(s ) Preadmit Attender: Rajwinder DAVENPORT CPSCAORT-PRSLAOT 12:00:00 AM EDT S06.0X0D [facility] S06.0X0D Outpatient 05/06/2021 08:45:17 AM EDT CHARTMAKER ([facility]) OFFICE/OUTPATIENT VISIT, EST 05/04/2021Outpatient Attender: Oseas Duron CIGAR HEAD PEGGER 05/04/2021 06:45:24 PM EDT CHARTMAKER ([facility]) Outpatient Attender: Jt MURRIETA-CPSCANEU 05/01 03:44:00 PM EDT - 05/01/2021 03:45:00 PM EDT [facility] Patient discharged. [place] [address] [address] 04/24/2021 12:00:00 AM EDT eCW1 ([facility]) Outpatient Attender: Karena DAVENPORT 021 07:53:59 AM EDT - 04/06/2021 08:39:49 AM EDT DocuTap ([facility] ) Preadmit Attender: Rajwinder DAVENPORT CPSCAORT-PRSLAOT 12:00:00 AM EDT S06.0X0D [facility] S06.0X0D Outpatient Attender: Jt MURRIETA-CPSCANEU 03/29 10:46:00 AM EDT - 03/29/2021 10:47:00 AM EDT [facility] Patient discharged. [place] [address] [address] 03/22/2021 12:00:00 AM EDT eCW1 ([facility]) Outpatient Attender: RAMONA JOHNSON RPA 03/14 01:29:52 PM EDT - 03/14/2021 03:31:07 PM EDT [facility] ([facility] ) OFFICE/OUTPATIENT VISIT, EST 03/02/2021Outpatient Attender: Casa Duron NP 03/02/2021 05:35:17 PM EDT CHARTMAKER ([facility]) Outpatient Attender: Rajwinder DAVENPORT CPSCAORT-CPSCANEU 0 02/27/2021 11:11:00 AM EDT - 02/27/2021 11:12:00 AM EDT [facility] [place] [address] [address] 02/23/2021 12:00:00 AM EDT eCW1 ([facility] [place] [address] [address] 02/15/2021 12:00:00 AM EDT eCW1 ([facility] [place]) OFFICE/OUTPATIENT VISIT, EST 01/12/2021Outpatient Attender: Oseas Duron NP 01/12/2021 06:05:48 PM EDT CHARTMAKER ([facility]) Outpatient Attender: Alfred Zuleta PA-C 01/10/2021 01:47:19 PM EDT - 01/10/2021 03:01:22 PM EDT [facility] ([facility]) [place] [address] [address] 12/20/2020 12:00:00 AM EDT eCW1 ([facility]) Outpatient Attender: Jt Atkins MD CPSCAORT-CPSCANEU 12/19 09:37:00 AM EDT - 12/19/2020 09:38:00 AM EDT [facility] Patient discharged. [place] [address] [address] 12/13/2020 12:00:00 AM EDT eCW1 ([facility]) [place] [address] [address] 12/05/2020 12:00:00 AM EDT eCW1 ([facility]) [place] [address] [address] 11/24/2020 12:00:00 AM EDT eCW1 ([facility]) OutpatientOFFICE/OUTPATIENT VISIT, EST 11/23/2020 Attender: ARNULFO DAVENPORT 11/23/2020 09:27:48 AM EDT CHARTMAKER ([facility]) [place] [address] [address] 11/16/2020 12:00:00 AM EDT eCW1 ([facility]) [place] [address] [address] 11/09/2020 12:00:00 AM EDT eCW1 ([facility]) [place] [address] [address] 11/08/2020 12:00:00 AM EDT eCW1 ([facility]) [place] [address] [facility] [place] [address] 10/20/2020 12:00:00 AM EDT eCW1 ([facility]) [place] [address] [address] 10/06/2020 12:00:00 AM EST eCW1 ([facility] [place] [address] [address] 10/05/2020 12:00:00 AM EST eCW1 ([facility] [place] [address] [facility] [place] [address] 10/05/2020 12:00:00 AM EST eCW1 ([facility] [place] [address] [address] 10/04/2020 12:00:00 AM EST eCW1 ([facility]) Outpatient Attender: Joann hensley 10/03/2020 11:00:00 AM EST MEDENT ([facility]) [place] [address] [facility] [place] [address] 09/05/2020 12:00:00 AM EST eCW1 ([facility]) [place] [address] [address] 08/24/2020 12:00:00 AM EST eCW1 ([facility]) [place] [address] [address] 08/18/2020 12:00:00 AM EST eCW1 ([facility]) [place] [address] [address] 08/17/2020 12:00:00 AM EST eCW1 ([facility]) [place] [address] [address] 08/11/2020 12:00:00 AM EST eCW1 ([facility]) [place] [address] [address] 08/11/2020 12:00:00 AM EST eCW1 ([facility]) Outpatient Attender: Jt Atkins MD CPSCAORT-CPSCANEU 07/06 08:43:00 AM EST - 07/06/2020 08:44:00 AM EST [facility] Patient discharged. OFFICE/OUTPATIENT VISIT, EST 06/08/2020Outpatient Attender: Stveen DAVENPORT 06/08/2020 06:31:03 PM EST CHARTMAJOSEPHINE ([facility]) [place] [address] [address] 05/31/2020 12:00:00 AM EST eCW1 ([facility]) [place] [address] [address] 05/18/2020 12:00:00 AM EDT eCW1 ([facility]) [place] [address] [address] 05/03/2020 12:00:00 AM EDT eCW1 ([facility]) [place] [address] [address] 04/28/2020 12:00:00 AM EDT eCW1 ([facility]) [place] [address] [address] 04/28/2020 12:00:00 AM EDT eCW1 ([facility]) Outpatient Attender: DELORES Cueva 04/20/2020 06:00:00 PM EDT MEDENT ([facility]) Outpatient [facility] 03/24/2020 12:00:01 PM EDT [facility] OutpatientOFFICE/OUTPATIENT VISIT, [facility] 03/22/2020 Attender: ARNULFO DAVENPORT 03/22/2020 11:01:57 AM EDT CHARTMAKER ([facility]) Immunizations Vaccine Date Status Description Data Source(s) COVID-19 VACCINE Pfizer 12/27/2020 12:00:00 AM EDT completed [facility] Vaccine Series Complete: YESThis Data wa s Submitted to [facility] Via [employer]. COVID-19 VACCINE Pfizer 12/04/2020 12:00:00 AM EDT completed [facility] Vaccine Series Complete: NOThis Data was Submitted to [facility] Via [employer]. Medications Medication Brand Name Start Date Product [...] 12:00:00 AM EDT active Occupational [facility] eCW1 ([facility]) Prednisone 20 MG Oral Tablet predniSONE 20 mg tablet predniS ONE 20 mg tablet 05/04/2021 12:00:00 AM EDT 1 completed , Take 1 tablet orally Every 12 hours 05/04/2021 CHARTMAKER ([facility]) 20 mg 05/04/2021 12:00:00 AM [...] propionate 0.05 MG/ACTUAT Metered Dose [place] 50 mcg/actuation FLUTICASONE PROPIONATE 05/04/2021 12:00:00 AM EDT spray,suspension 15 SPRAY 2 SPRAYS IN EACH NOSTRIL ONCE DAILY SPRAY 2 SPRAYS IN EACH NOSTRIL ONCE DAILY SOLD: 05/04/2021 [facility] doxycycline hyclate 100 MG Oral Capsule doxycycline hy clate 100 mg capsule doxycycline hyclate 100 mg capsule 05/04/2021 12:00:00 AM EDT 1 completed , Take 1 capsule orally Twice a day 05/04/2021 CHARTIDKER ([facility]) Flonase Allergy Relief 50 mcg/actuation nasal spray,suspensi on 05/04/2021 12:00:00 AM EDT 2 completed , Take 2 spray, suspension (mL) nasally Every day 05/04/2021 [facility] ([facility]) 25 mg [...] 12:00:00 AM EDT 1 completed 03/02/2021 CHARTMAKER ([facility]) Amoxicillin 875 MG / Clavulanate [...] 12:00:00 AM EDT 2 completed 01/12/2021 CHARTLEILANI ([facility]) 25 mg 11/09/2020 12:00:00 AM [...] 10/03/2020 12:00:00 AM EST ORAL active MEDENT ([facility]) Amitriptyline Hydrochloride 25 MG Oral Tablet AMITRIPTYLINE [...] 12:00:00 AM EST 1 completed 11/23/2020 CHARTMAKER ([facility]) 0.025 % 04/20/2020 12:00:00 AM EDT cream 15 APPLY A THIN LAYER TOPICALLY TO AFFECTED AREAS ON LEFT SIDE EVERY 12 HOURS AFTER FINISHING PREDNISONE UNTIL RESOLUTION APPLY A THIN LAYER TOPICALLY TO AFFECTED AREAS ON LEFT SIDE EVERY 12 HOURS AFTER FINISHING PREDNISONE UNTIL RESOLUTION SOLD: 04/20/2020 [facility] Prednisone 20 MG Oral Tablet Prednisone 04/20/2020 12:00:00 AM EDT ORAL completed MEDENT ([facility]) Amoxicillin 875 MG / Clavulanate 125 MG Oral Tablet Am oxicillin/Clavulanate Potassium 04/20/2020 12:00:00 AM EDT ORAL completed MEDENT ([facility]) Triamcinolone Acetonide 0.25 MG/ML Topical Cream Triamcinolo ne Acetonide 04/20/2020 12:00:00 AM EDT completed MEDENT ([facility]) 20 mg 04/20/2020 12:00:00 AM EDT tablet [...] AM EDT 2 completed 06/08/2020 JESÚS Jarrell ([facility]) Potassium Chloride 20 MEQ Extended Relea se Oral Tablet potassium chloride ER 20 mEq tablet,extended release potassium chloride ER 20 mEq tablet,exte nded release 11/17/2019 12:00:00 AM EDT 2 completed 06/08/2020 ESTELA ([facility]) Chlorthalidone 25 MG Oral Tablet chlorthalidone 25 mg tablet chlorthalidone 25 mg tablet 11/16/2019 12:00:00 AM EDT 1 completed 01/12/2021 CHARTLEILANI ([facility]) Insurance Providers Payer name Policy type / Coverage type Policy ID Covered constitution party ID Covered constitution party's relationship to [place] Policy [place] Plan Information Medicaid Medicaid [id number] Self [id number] [facility] [employer] [facility] Commercial Insurance Co. [id number] Self [id number] [facility] [id number] Commercial Insurance [id number] ID IDENTIFICATION [id number] Other Insurance [id number] [employer] [id number] S [id number] [employer] [id number] S [id number] WC [id number] S [id number] MVP MCDHMO [id number] SP [id number] [employer] COMP [id number] SP [id number] [place] [id number] SP [id number] A MVP MCDHMO [id number] SP [id number] [employer] WCB# [id number] SP W CB# [id number] [employer] COMP [id number] SP [id number] [employer] COMP [id number] SP [id number] [employer] COMP [id number] SP [id number] [place] [id number] SP [id number] [facility] [id number] SP [id number] [facility] HEALTH CARE [id number] SP [id number] [facility] HEALTH CARE [id number] SP [id number] [employer] [id number] SP [id number] [employer] COMP [id number] SP [id number] WC [id number] S [id number] [facility] PU[facility] HL[facility] [id number] SP [id number] [employer] COMP [id number] SP [id number] [employer] COMP [id number] SP [id number] [employer] [id number] SP [id number] [facility] O [id number] S [id number] [facility] [id number] SP [id number] Self Pay P UNAVAILABLE S UNAVAILA BLE [employer] [id number] Other Insuranc e [id number] [facility] [id number] Commercial Insura nce [id number] [facility] [id number] SP [id number] [facility] [id number] SP [id number] [facility] [id number] SP [id number] [employer] [id number] Other Insuranc e [id number] [employer] [id number] Other Insurance [id number] [facility] [id number] Commercial Insura [facility] [id number] Problems, Conditions, and Diagnoses Code Display Name Description Problem Type Effective Dates Data Source(s) Z03.818 Encounter for observation fo r suspected exposure to other biological agents ruled out Encounter for observation for suspected exposure to other biological agents ruled out (Z03.818) 05/04/2021 [id number] 2020 06:45:24 PM EDT CHARTMAKER ([facility]) R05 Cough Cough (R05) 05/04/2021 [id number] 05/04/2021 06: 45:24 PM EDT CHARTMAKER ([facility]) R09.81 Nasal congestion Nasal congestion (R09.81) 05/04/2021 [id number] 05/04/2021 06:45:24 PM EDT CHARTMAKER ([facility]) M79.645 Pain in left finger(s) Pain in left finger(s) (M 79.645) 03/02/2021 [id number] 03/02/2021 05:35:17 PM EDT CHARTMAKER ([facility]) S61.221A Laceration with foreign body of left index finger without damage to nail, initial encounter Laceration with foreign body of left ind ex finger without damage to nail, initial encounter (S61.221A) 03/02/2021 [id number] 03/02/2021 05:35:17 PM EDT CHARTMAKER ([facility]) R09.82 Postnasal drip Postnasal drip (R09.82) 01/12/2021 [id number] 01/12/2021 06:05:48 PM EDT CHARTMAKER ([facility]) J01.00 Acute maxillary sinusitis, unspecified A cute maxillary sinusitis, unspecified (J01.00) 01/12/2021 [id number] 01/12/2021 06:05:48 PM EDT CH ARTMAKER ([facility]) R09.81 Nasal congestion Nasal congestion (R09.81) 01/12/2021 [id number] 01/12/2021 06:05:48 PM EDT CHARTMAKER ([facility]) K57.90 [id number] Diverticulosis Problem 12/05/2020 12:00:00 A M EDT eCW1 ([facility]) N28.89 [id number] Renal mass, right Problem 12/05/2020 12:00:0 0 AM EDT eCW1 ([facility]) S20.361A Insect bite (nonvenomous) of right front wall of thorax, initial encounter Insect bite (nonvenomous) of right front wall of thorax, initial encounter (S20.361A) 11/23/2020 [id number] 11/23/2020 09:27:48 AM EDT ARTMAKER ([facility]) S61.401A Unspecified open wound of right hand, in itial encounter Unspecified open wound of right hand, initial encounter (S61.401A) 11/23/2020 [id number] 06/08/2020 06:31:03 PM EST - 11/23/2020 12:00:00 AM EDT CHARTMAKER ([facility]) W55.01XA Bitten by cat, initial encounter Bitten by cat, initial encounter (W55.01XA) 11/23/2020 [id number] 06/08/2020 06:31:03 PM EST - 11/23/2020 12:00:00 AM EDT CHARTMAKER ([facility]) G44.309 [id number] Post-traumatic headache, unspecified, not intractable Problem 05/17/2020 12:00:00 AM EDT eCW1 ([facility]) R07.9 Chest pain, unspecified Chest pain, unspecified (R07.9) 06/08/2020 [id number] 03/22/2020 11:01:57 AM EDT - 06/08/2020 12:00:00 AM ES T CHARTMAKER ([facility]) R09.81 Nasal congestion Nasal congestion (R09.81) 06/08/2020 [id number] 03/22/2020 11:01:57 AM EDT - 06/08/2020 12:00:00 AM EST CHARTMAKER ([facility]) I10 Essential (primary) hypertension Essenti al (primary) hypertension (I10) 06/08/2020 [id number] 11/16/2019 12:14:27 PM EDT - 06/08/2020 12:00:00 AM EST CHARTMAKER ([facility]) Surgeries/Procedures Procedure Description Date Indications Data Source(s) [facility] OFFICE REG SCHEDD EVN /HOLIDAY HRS 2020 12:00:00 AM EDT CHARTMAKER ([facility]) INFECTIOUS AGENT DETECTION BY NUCLEIC ACID 05/04/2021 05/04/2021 12:00:00 AM EDT CHARTMAKER ([facility] are) [facility] PRV OFFICE REG SCHEDD EVN /HOLIDAY HRS 2020 12:00:00 AM EDT CHARTMAKER ([facility]) SIMPLE REPAIR SCALP/NECK/AX/GENIT/TRUNK 2.5CM/< 2020 12:00:00 AM EDT CHARTMAKER ([facility]) [facility] PRV OFFICE REG SCHEDD EVN /HOLIDAY HRS 2020 12:00:00 AM EDT CHARTMAKER ([facility]) [facility] PRV OFFICE REG SCHEDD EVN /HOL HRS 2019 12:00:00 AM EST CHARTMAKER ([facility]) ECG ROUTINE ECG W/LEAST 12 LDS W/I&R 03/22/2020 12:00: 00 AM EDT CHARTMAKER ([facility]) Results ID Date Data Source [id number] 05/07/2021 07:32:00 PM EDT CHARTMAKER ([facility] [place] [...] rce(s) Supporting Document(s) ID Date Data Source [id number] 05/04/2021 12:00:00 AM EDT [facility] Name Value Range Interpretation Code Description Data Lorenza rce(s) Supporting Document(s) NAAT NEGATIVE [facility] This lab was ordered by [facility] and reported by [facility]. ID Date Data Source [id number] 04/06/2021 08:45:00 AM EDT [facility] Name Value Range Interpretation Code Description Data Lorenza rce(s) Supporting Document(s) SARS-CoV-2 RNA Resp Ql PEYMAN+probe NOT DETECTED [facility] This lab was ordered by [facility] and reported by [facility]. ID Date Data Source [id number] 11/17/2020 11:50:00 AM EDT [facility] Name Value Range Interpretation Code Description Data Lorenza rce(s) Supporting Document(s) SARS-CoV-2 (COVID-19) RNA [Presence] in Respiratory specimen by PEYMAN with probe detection Not Detected [facility] This lab was ordered by [facility] and reported by [employer] ID Date Data Source [id number] 10/18/2020 01:20:00 PM EDT [facility] Name Value Range Interpretation Code Description Data Lorenza rce(s) Supporting Document(s) SARS coronavirus 2 RNA Not Detected [facility] [place] This lab was ordered by [facility] and reported by [facility]. ID Date Data Source [id number] 10/04/2020 09:55:00 AM EST [facility] Name Value Range Interpretation Code Description Data Lorenza rce(s) Supporting Document(s) SARS coronavirus 2 RNA Not Detected [facility] [place] This lab was ordered by [facility] and reported by [facility]. Procedure Social History Code Duration Value Status Description Data Source(s ) Smoking 05/04/2021 12:00:00 AM EDT Never smoker completed Never s moker CHARTMAKER ([facility]) Smoking 03/22/2021 12:00:00 AM EDT Never Smoker completed Never S moker eCW1 ([facility]) Smoking 03/22/2021 12:00:00 AM EDT Never Smoker completed Never S moker eCW1 ([facility]) Smoking 02/23/2021 12:00:00 AM EDT Never Smoker completed Never S moker eCW1 ([facility]) Smoking 12/05/2020 12:00:00 AM EDT Never Smoker completed Never S moker eCW1 ([facility]) Smoking 12/05/2020 12:00:00 AM EDT Never Smoker completed Never S moker eCW1 ([facility]) Smoking 12/05/2020 12:00:00 AM EDT Never Smoker completed Never S moker eCW1 ([facility]) Smoking 12/05/2020 12:00:00 AM EDT Never Smoker completed Never S moker eCW1 ([facility]) Smoking 11/24/2020 12:00:00 AM EDT Never Smoker completed Never S moker eCW1 ([facility]) Smoking 11/23/2020 12:00:00 AM EDT Never smoker completed Never s moker CHARTMAKER ([facility]) Smoking 10/20/2020 12:00:00 AM EDT Never Smoker completed Never S moker eCW1 ([facility]) Smoking 10/20/2020 12:00:00 AM EDT Never Smoker completed Never S moker eCW1 ([facility]) Smoking 10/20/2020 12:00:00 AM EDT Never Smoker completed Never S moker eCW1 ([facility]) Smoking 10/20/2020 12:00:00 AM EDT Never Smoker completed Never S moker eCW1 ([facility]) Smoking 10/06/2020 12:00:00 AM EST Never Smoker completed Never S moker eCW1 ([facility]) Smoking 10/06/2020 12:00:00 AM EST Never Smoker completed Never S moker eCW1 ([facility]) Smoking 10/06/2020 12:00:00 AM EST Never Smoker completed Never S moker eCW1 ([facility]) Smoking 10/06/2020 12:00:00 AM EST Never Smoker completed Never S moker eCW1 ([facility]) Smoking 09/05/2020 12:00:00 AM EST Never Smoker completed Never S moker eCW1 ([facility]) Smoking 08/24/2020 12:00:00 AM EST Never Smoker completed Never S moker eCW1 ([facility]) Smoking 08/24/2020 12:00:00 AM EST Never Smoker completed Never S moker eCW1 ([facility]) Smoking 08/24/2020 12:00:00 AM EST Never Smoker completed Never S moker eCW1 ([facility]) Smoking 08/24/2020 12:00:00 AM EST Never Smoker completed Never S moker eCW1 ([facility]) Smoking 08/16/2020 12:00:00 AM EST Never Smoker completed Never S moker eCW1 ([facility]) Smoking 05/25/2020 12:00:00 AM EDT Never Smoker completed Never S moker eCW1 ([facility]) Smoking 05/25/2020 12:00:00 AM EDT Never Smoker completed Never S moker eCW1 ([facility]) Smoking 05/18/2020 12:00:00 AM EDT Never Smoker completed Never S moker eCW1 ([facility]) Smoking 05/18/2020 12:00:00 AM EDT Never Smoker completed Never S moker eCW1 ([facility]) Smoking 05/18/2020 12:00:00 AM EDT Never Smoker completed Never S moker eCW1 ([facility]) Smoking 04/20/2020 12:00:00 AM EDT Never Smoked Cigarettes com pleted Never Smoked Cigarettes MEDENT ([facility], [facility]) Smoking 03/22/2020 12:00:00 AM EDT Never smoker completed Never s moker CHARTMAKER ([facility]) Vital Signs ID Date Data Source UNK Name Value Range Interpretation Code Description Data Source(s) Heart rate 74 /min 74 /min CHARTMAKER ([facility]) Systolic blood pressure 110 mm[Hg] 110 mm[Hg] C HARTMAKER ([facility]) Diastolic blood pressure 78 mm[Hg] 78 mm[Hg] CHARTMAKER ([facility]) Oxygen saturation in Arterial blood by Pulse oximetry 96 % 96 % CHARTMAKER ([facility]) Inhaled oxygen concentration 21 % 21 % CHARTMAKER ([facility]) Body temperature 98 [degF] 98 [degF] CHARTMAK ER ([facility]) Body weight 205 [lb_av] 205 [lb_av] CHARTMAKER ([facility]) Body weight 200.6 [lb_av] 200.6 [lb_av] eCW1 ([facility]) Body weight 90.99 kg 90.99 kg eCW1 ([facility]) Body height 67 [in_i] 67 [in_i] eCW1 ([facility]) Body mass index (BMI) [Ratio] 31.41 kg/m2 31.41 kg/m2 eCW1 ([facility]) Heart rate 76 /min 76 /min eCW1 ([facility]) Respiratory rate 18 /min 18 /min eCW1 ([facility]) Body temperature 97.5 [degF] 97.5 [degF] eCW1 ( [facility]) Systolic blood pressure 122 mm[Hg] 122 mm[Hg] e CW1 ([facility]) Diastolic blood pressure 64 mm[Hg] 64 mm[Hg] eCW1 ([facility]) Body height 64 [in_i] 64 [in_i] CHARTMAKER ([facility]) Body mass index (BMI) [Ratio] 34.666198495195 kg/m2 34.551632681241 kg/m2 CHARTMAKER ([facility]) Body weight 193 [lb_av] 193 [lb_av] eCW1 ([facility]) Body height 67 [in_i] 67 [in_i] eCW1 ([facility]) Body mass index (BMI) [Ratio] 30.22 kg/m2 30.22 kg/m2 eCW1 ([facility]) Heart rate 63 /min 63 /min eCW1 ([facility]) Respiratory rate 17 /min 17 /min eCW1 ([facility]) Body temperature 97.9 [degF] 97.9 [degF] eCW1 ( [facility]) Systolic blood pressure 108 mm[Hg] 108 mm[Hg] e CW1 ([facility]) Diastolic blood pressure 73 mm[Hg] 73 mm[Hg] eCW1 ([facility]) Body weight 190 [lb_av] 190 [lb_av] eCW1 ([facility]) Body height 67 [in_i] 67 [in_i] eCW1 ([facility]) Body mass index (BMI) [Ratio] 29.75 kg/m2 29.75 kg/m2 eCW1 ([facility]) Heart rate 96 /min 96 /min eCW1 ([facility]) Respiratory rate 18 /min 18 /min eCW1 ([facility]) Body temperature 97.7 [degF] 97.7 [degF] eCW1 ( [facility]) Systolic blood pressure 104 mm[Hg] 104 mm[Hg] e CW1 ([facility]) Diastolic blood pressure 84 mm[Hg] 84 mm[Hg] eCW1 ([facility]) Body temperature 97.5 [degF] 97.5 [degF] VIV RIVERO ([facility]) Heart rate 44 /min 44 /min CHARTLEILANI ([facility]) Systolic blood pressure 110 mm[Hg] 110 mm[Hg] C HARTIDKER ([facility]) Body height 66 [in_i] 66 [in_i] CHARTMAKER ([facility]) Body weight 193.3125 [lb_av] 193.3125 [lb_av] C HARTIDKER ([facility]) Body mass index (BMI) [Ratio] 31.8145517664773 kg/m2 31.6787817126191 kg/m2 CHARTMAKER ([facility]) Oxygen saturation in Arterial blood by Pulse oximetry 97 % 97 % CHARTMAKER ([facility]) Inhaled oxygen concentration 21 % 21 % CHARTMAKER ([facility]) Diastolic blood pressure 70 mm[Hg] 70 mm[Hg] CHARTMAKER ([facility]) Systolic blood pressure 130 mm[Hg] 130 mm[Hg] M EDENT ([facility], [facility]) Diastolic blood pressure 86 mm[Hg] 86 mm[Hg] MEDENT ([facility], [facility]) Heart rate 90 /min 90 /min MEDENT ([facility], [facility]) Respiratory rate 16 /min 16 /min MEDENT ( [facility], [facility]) Oxygen saturation in Arterial blood by Pulse oximetry 98 % 98 % MEDENT ([facility], [facility]) Body temperature 97.1 [degF] 97.1 [degF] MEDENT ([facility], [facility]) Body weight 170.00 [lb_av] 170.00 [lb_av] MEDEN T ([facility], [facility]) Body height 66 [in_i] 66 [in_i] MEDENT ([facility], [facility]) 5'6" Body mass index (BMI) [Ratio] 27.4 kg/m2 27.4 k g/m2 MEDENT ([facility], [facility]) Body weight 187 [lb_av] 187 [lb_av] eCW1 ([facility]) Body height 67 [in_i] 67 [in_i] eCW1 ([facility]) Body mass index (BMI) [Ratio] 29.29 kg/m2 29.29 kg/m2 W1 ([facility]) Heart rate 71 /min 71 /min eCW1 ([facility]) Respiratory rate 16 /min 16 /min eCW1 ([facility]) Body temperature 96.5 [degF] 96.5 [degF] eCW1 ( [facility]) Systolic blood pressure 161 mm[Hg] 161 mm[Hg] e CW1 ([facility]) Diastolic blood pressure 94 mm[Hg] 94 mm[Hg] eCW1 ([facility]) Body weight 184 [lb_av] 184 [lb_av] eCW1 ([facility]) Body height 67 [in_i] 67 [in_i] eCW1 ([facility]) Body mass index (BMI) [Ratio] 28.82 kg/m2 28.82 kg/m2 W1 ([facility]) Heart rate 70 /min 70 /min eCW1 ([facility]) Respiratory rate 16 /min 16 /min eCW1 ([facility]) Body temperature 98.9 [degF] 98.9 [degF] eCW1 ( [facility]) Systolic blood pressure 99 mm[Hg] 99 mm[Hg] e CW1 ([facility]) Diastolic blood pressure 71 mm[Hg] 71 mm[Hg] eCW1 ([facility]) Body weight 186.2 [lb_av] 186.2 [lb_av] eCW1 ([facility]) Body height 67 [in_i] 67 [in_i] eCW1 ([facility]) Body mass index (BMI) [Ratio] 29.16 kg/m2 29.16 kg/m2 eCW1 ([facility]) Heart rate 93 /min 93 /min eCW1 ([facility]) Respiratory rate 18 /min 18 /min eCW1 ([facility]) Body temperature 97.7 [degF] 97.7 [degF] eCW1 ( [facility]) Systolic blood pressure 118 mm[Hg] 118 mm[Hg] e CW1 ([facility]) Diastolic blood pressure 82 mm[Hg] 82 mm[Hg] eCW1 ([facility]) Respiratory rate 16 /min 16 /min CHARTMAK ER ([facility]) Body weight 174.2 [lb_av] 174.2 [lb_av] eCW1 ([facility]) Body height 67 [in_i] 67 [in_i] eCW1 ([facility]) Body mass index (BMI) [Ratio] 27.28 kg/m2 27.28 kg/m2 eCW1 ([facility]) Heart rate 69 /min 69 /min eCW1 ([facility]) Respiratory rate 18 /min 18 /min eCW1 ([facility]) Body temperature 97.1 [degF] 97.1 [degF] eCW1 ( [facility]) Systolic blood pressure 120 mm[Hg] 120 mm[Hg] e CW1 ([facility]) Diastolic blood pressure 92 mm[Hg] 92 mm[Hg] eCW1 ([facility]) Systolic blood pressure 130 mm[Hg] 130 mm[Hg] M EDENT ([facility], [facility]) Diastolic blood pressure 84 mm[Hg] 84 mm[Hg] MEDENT ([facility], [facility]) Heart rate 75 /min 75 /min MEDENT ([facility], [facility]) Respiratory rate 18 /min 18 /min MEDENT ( [facility], [facility]) Oxygen saturation in Arterial blood by Pulse oximetry 97 % 97 % MEDENT ([facility], [facility]) Body temperature 98.0 [degF] 98.0 [degF] MEDENT ([facility], [facility]) Body weight 170.00 [lb_av] 170.00 [lb_av] MEDEN T ([facility], [facility]) Body height 66 [in_i] 66 [in_i] MEDENT ([facility], [facility]) 5'6" Body mass index (BMI) [Ratio] 27.4 kg/m2 27.4 k g/m2 MEDENT ([facility], [facility]) Body temperature 97.5 [degF] 97.5 [degF] CHARTM MAT ([facility]) Heart rate 70 /min 70 /min CHARTMAKER ([facility]) Systolic blood pressure 150 mm[Hg] 150 mm[Hg] C HARTMAKER ([facility]) Diastolic blood pressure 100 mm[Hg] 100 mm[Hg] CHARTMAKER ([facility]) Body height 65 [in_i] 65 [in_i] CHARTMAKER ([facility]) Body weight 175 [lb_av] 175 [lb_av] CHARTMAKER ([facility]) Body mass index (BMI) [Ratio] 29.3205387626321 kg/m2 29.9102760851509 kg/m2 CHARTMAKER ([facility]) Oxygen saturation in Arterial blood by Pulse oximetry 97 % 97 % CHARTMAKER ([facility]) Inhaled oxygen concentration 21 % 21 % CHARTMAKER ([facility]) Patient Treatment Plan of Care Planned Activity Planned Date Details Description Data Source (s) Occupational Therapy 05/07/2021 12:00:00 AM EDT eCW1 ([facility])
[2021-05-21] MEDS ORDERED: CHLO125TA (17:29)
[2021-05-21] MEDS ORDERED: PROP40TA62 (17:29)
[2021-05-21 18:53] LABS: BASO # 0.1 10^3/uL (0.0-0.2); BASO % 1.2 % (0.0-1.0); EOS # 0.8 10^3/uL (0.0-0.5); HEMATOCRIT 48.3 % (42.0-52.0); HEMOGLOBIN 16.6 g/dl (13.5-17.5); LYMPH # 1.4 10^3/uL (1.5-5.0); LYMPH % 18.5 % (24.0-44.0); MEAN CORPUSCULAR HEMOGLOBIN 32.1 pg (27.0-33.0); MEAN CORPUSCULAR HGB CONC 34.4 g/dl (32.0-36.5); MEAN CORPUSCULAR VOLUME 93.4 fl (80.0-96.0); MONO # 1.3 10^3/uL (0.0-0.8); MONO % 17.5 % (2.0-8.0); NEUTROPHILS # 3.9 10^3/uL (1.5-8.5); NEUTROPHILS % 52.4 % (36.0-66.0); PLATELET COUNT, AUTOMATED 224 10^3/uL (150-450); RED BLOOD COUNT 5.17 10^6/uL (4.30-6.10); WHITE BLOOD COUNT 7.5 10^3/uL (4.0-10.0)
[2021-05-21 19:17] LABS: INR 0.94
[2021-05-21 19:19] LABS: D-DIMER QUANT 838.45 ng/ml (<500)
[2021-05-21 19:30] LABS: ALBUMIN 3.4 GM/DL (3.2-5.2); ALT/SGPT 40 U/L (12-78); BILIRUBIN,DIRECT 0.2 MG/DL (0.0-0.2); BILIRUBIN,TOTAL 0.6 MG/DL (0.2-1.0); CK-MB VALUE MASS 2.7 NG/ML (<3.6); CPK CREATINE PHOSPHOKINASE 152 U/L (39-308); MB/CK RELATIVE INDEX 1.78 (< OR =4); NT-PRO BNP 24 PG/ML (<125); THYROXINE (T4) 8.9 UG/DL (4.5-12.0); TOTAL PROTEIN 7.2 GM/DL (6.4-8.2); TROPONIN I < 0.02 NG/ML (< 0.10)
[2021-05-21] MEDS ORDERED: ISOVUE-370 76% 100ML VIAL As Ordered ONE (19:44)
--- NOTE | 2021-05-21 20:40 | REPVR ---
PROCEDURE INFORMATION: Exam: CTA Chest With Contrast Exam date and time: 05/21/2021 8:01 PM Age: 60 years old Clinical indication: Shortness of breath; Additional info: Shortness of breath, elevated d dimer, RO pe TECHNIQUE: Imaging protocol: Computed tomographic angiography of the chest with contrast. 3D rendering (Not supervised by radiologist): MIP and/or 3D reconstructed images were created by the technologist. Radiation optimization: All CT scans at this facility use at least one of these dose optimization techniques: automated exposure control; mA and/or kV adjustment per patient size (includes targeted exams where dose is matched to clinical indication); or iterative reconstruction. Contrast material: ISOVUE 370; Contrast volume: 75 ml; Contrast route: INTRAVENOUS (IV); COMPARISON: CR PORTABLE CHEST X-RAY 02/03/2020 3:25 PM FINDINGS: Pulmonary arteries: No focal pulmonary artery filling defect to suggest acute pulmonary embolus. Aorta: No thoracic aortic aneurysm or dissection. Lungs: No suspicious lung mass or air space process. No central endobronchial lesion. Pleural spaces: No pleural effusion or pneumothorax. Heart: Atherosclerotic calcifications in the coronary vessels. No overt cardiac enlargement or abnormal volume of pericardial fluid. Lymph nodes: No enlarged mediastinal lymph nodes. Diaphragm: Hiatal hernia measuring 6 cm is present. Bones/joints: Bony structures show no acute fracture or destructive process. Soft tissues: Unremarkable. IMPRESSION: 1. No evidence of acute pulmonary embolus. 2. No other acute or concerning focal intrathoracic abnormality. 3. Hiatal hernia which can be associated with GE reflux symptoms Electronically signed by: Luis Craven On 05/21/2021 20:40:19 PM
[2021-05-21] MEDS ORDERED: PROT1TAB2 PO (21:06)
[2021-05-21 21:41] VITALS: BP 114/69
--- NOTE | 2021-05-22 06:22 | ECGEPIP ---
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
== END 2021-05-21 21:42 | disposition home or self-care (01) ==
LOC: M ED 16:05
DX: K44.9 Diaphragmatic hernia without obstruction or gangrene (principal); R05.9 Cough, unspecified; R06.02 Shortness of breath; R00.1 Bradycardia, unspecified; I48.91 Unspecified atrial fibrillation; I10 Essential (primary) hypertension; K21.9 Gastro-esophageal reflux disease without esophagitis; R51.9 Headache, unspecified; Z88.5 Allergy status to narcotic agent
CPT/HCPCS: 71275; 80047; 80076; 82550; 82553; 83880; 84436; 84443; 85025; 85379; 85610; 93005; 99284; Q9967

== ENCOUNTER → 2021-06-25 | Outpatient (CLI) | payer OTHER, MEDICAID ==
[~2021-06-25] MED LIST changes: +ALBU8.5H; +ATOR40TA75 PO; +BENZ-18 PO; +D31000TA2 PO; +FAMO40TA3 PO; +FLUT15.820 INH; +K-TA10TA PO; +PANT40TA29 PO; +PRED10TA2 PO; +PROP20TA72 PO; +PROP40TA62; +PROT1TAB2 PO; +RAMI1CAP26 PO
== END ==
LOC: M LABSMTC 11:30
PROVIDERS: ATTEND Anesthesiology
DX: Z01.812 Encounter for preprocedural laboratory examination (principal); Z20.822 Contact with and (suspected) exposure to COVID-19

== ENCOUNTER 2021-07-23 09:10 | Emergency (ER) | payer MEDICAID, OTHER ==
[~2021-07-23] VITALS: Ht 165.1 cm; Wt 95.8 kg
[~2021-07-23 09:10] MED LIST changes: -ALBU8.5H; -ATOR40TA75 PO; -BENZ-18 PO; -D31000TA2 PO; -K-TA10TA PO; -PANT40TA29 PO; -PRED10TA2 PO; -PROP20TA72 PO; -RAMI1CAP26 PO
[2021-07-23] MEDS ORDERED: PANT40TA29 PO (09:25)
[2021-07-23] MEDS ORDERED: ALBU8.5H (09:25)
[2021-07-23] MEDS ORDERED: methylPREDNISolone 125MG 2ML VIAL IV ONE (13:30)
[2021-07-23 13:33] LABS: BASO # 0.1 10^3/uL (0.0-0.2); BASO % 0.7 % (0.0-1.0); EOS # 0.8 10^3/uL (0.0-0.5); EOS % 10.7 % (0.0-3.0); HEMATOCRIT 51.5 % (42.0-52.0); HEMOGLOBIN 17.5 g/dl (13.5-17.5); LYMPH # 1.3 10^3/uL (1.5-5.0); LYMPH % 17.8 % (24.0-44.0); MEAN CORPUSCULAR HEMOGLOBIN 31.5 pg (27.0-33.0); MEAN CORPUSCULAR VOLUME 92.6 fl (80.0-96.0); MONO # 0.8 10^3/uL (0.0-0.8); MONO % 11.3 % (2.0-8.0); NEUTROPHILS # 4.2 10^3/uL (1.5-8.5); NEUTROPHILS % 59.2 % (36.0-66.0); PLATELET COUNT, AUTOMATED 245 10^3/uL (150-450); RED BLOOD COUNT 5.56 10^6/uL (4.30-6.10); WHITE BLOOD COUNT 7.1 10^3/uL (4.0-10.0)
[2021-07-23 14:07] LABS: ALBUMIN 3.7 GM/DL (3.2-5.2); ALT/SGPT 31 U/L (12-78); BILIRUBIN,DIRECT 0.4 MG/DL (0.0-0.2); BILIRUBIN,TOTAL 1.2 MG/DL (0.2-1.0); BLOOD UREA NITROGEN 13 MG/DL (7-18); CARBON DIOXIDE LEVEL 28 MEQ/L (21-32); CHLORIDE LEVEL 103 MEQ/L (98-107); CREATININE FOR GFR 0.69 MG/DL (0.70-1.30); GLOMERULAR FILTRATION RATE > 60.0 (>56); GLUCOSE, FASTING 90 MG/DL (70-100); NT-PRO BNP 30 PG/ML (<125); POTASSIUM SERUM 4.4 MEQ/L (3.5-5.1); SODIUM LEVEL 137 MEQ/L (136-145); THYROXINE (T4) 9.8 UG/DL (4.5-12.0); TOTAL PROTEIN 7.3 GM/DL (6.4-8.2)
[2021-07-23] MEDS ORDERED: PRED10TA2 PO (14:18)
[2021-07-23 14:45] VITALS: BP 114/72
[2021-07-25] MEDS ORDERED: ATOR40TA75 PO (13:37)
[2021-07-25] MEDS ORDERED: RAMI1CAP26 PO (13:37)
[2021-07-25] MEDS ORDERED: BENZ-18 PO (13:37)
[2021-07-25] MEDS ORDERED: PROP20TA72 PO (13:37)
[2021-07-25] MEDS ORDERED: D31000TA2 PO (13:37)
[2021-07-25] MEDS ORDERED: K-TA10TA PO (13:37)
== END 2021-07-23 14:52 | disposition home or self-care (01) ==
LOC: M ED 09:10
DX: J20.9 Acute bronchitis, unspecified (principal); R00.1 Bradycardia, unspecified; I10 Essential (primary) hypertension; Z79.899 Other long term (current) drug therapy; Z88.5 Allergy status to narcotic agent
CPT/HCPCS: 71045; 80048; 80076; 83880; 84436; 84443; 85025; 93005; 93041; 94760; 96374; 99285; J2930

== ENCOUNTER 2021-08-08 08:49 | Day surgery (SDC) | payer OTHER ==
[~2021-08-08] VITALS: Ht 165.1 cm; Wt 94.1 kg
[~2021-08-08 08:49] MED LIST changes: +ALBU8.5H; +ATOR40TA75 PO; +BENZ-18 PO; +D31000TA2 PO; +K-TA10TA PO; +LIDOCAINE 2% 100MG/5ML SDV (FOR ANES.) As Ordered ONE; +NS 1,000 ML IV ONE; +PANT40TA29 PO; +PRED10TA2 PO; +PROP20TA72 PO; +RAMI1CAP26 PO; +propofoL 200 MG/20 ML VIAL As Ordered ONE
[2021-08-08] MEDS ORDERED: propofoL 200 MG/20 ML VIAL As Ordered ONE (10:12)
[2021-08-08 11:05] VITALS: BP 110/84
== END 2021-08-08 11:23 | disposition home or self-care (01) ==
LOC: M OPP 08:49
PROVIDERS: ATTEND Surgery
DX: Z12.11 Encounter for screening for malignant neoplasm of colon (principal); D12.2 Benign neoplasm of ascending colon; K57.30 Diverticulosis of large intestine without perforation or abscess without bleeding; K64.8 Other hemorrhoids; K44.9 Diaphragmatic hernia without obstruction or gangrene; R05.9 Cough, unspecified; R93.3 Abnormal findings on diagnostic imaging of other parts of digestive tract; Z79.899 Other long term (current) drug therapy; Z88.5 Allergy status to narcotic agent

== ENCOUNTER → 2021-09-24 | Outpatient (CLI) | payer OTHER ==
[~2021-09-24] MED LIST changes: -D31000TA2 PO; +E-Z-GAS II EFFERVESCENT PACKET (SODIUM BICARB./CITRIC ACID/SIMETHICONE) As Ordered ONE; +E-Z-HD 98% w/w 340GM SUSP BTL As Ordered ONE; +E-Z-PAQUE 96% w/w SUSP 176GM BTL As Ordered ONE; -LIDOCAINE 2% 100MG/5ML SDV (FOR ANES.) As Ordered ONE; -NS 1,000 ML IV ONE; +VITA100093 PO; -propofoL 200 MG/20 ML VIAL As Ordered ONE
== END ==
LOC: M RAD 08:51
PROVIDERS: ATTEND Surgery
DX: K44.9 Diaphragmatic hernia without obstruction or gangrene (principal); K21.9 Gastro-esophageal reflux disease without esophagitis

== ENCOUNTER 2021-10-03 10:28 | Outpatient (RCR) | payer OTHER ==
[~2021-10-03 10:28] MED LIST changes: -E-Z-GAS II EFFERVESCENT PACKET (SODIUM BICARB./CITRIC ACID/SIMETHICONE) As Ordered ONE; -E-Z-HD 98% w/w 340GM SUSP BTL As Ordered ONE; -E-Z-PAQUE 96% w/w SUSP 176GM BTL As Ordered ONE; -PROP40TA62; +PROP40TA62 PO
[2021-10-09] MEDS ORDERED: LOSA25TA13 PO (08:28)
[2021-10-09] MEDS ORDERED: D3 S1CAP3 PO (13:40)
[2021-10-17] MEDS ORDERED: ALBU8.5H INH (23:45)
[2021-10-17] MEDS ORDERED: BENZ-18 PO (23:45)
[2021-10-17] MEDS ORDERED: SUMA25TA3 PO (23:45)
[2021-10-17] MEDS ORDERED: FAMO40TA3 PO (23:45)
[2021-10-23] MEDS ORDERED: COZA1TAB PO (10:35)
[2021-10-23] MEDS ORDERED: PRED10TA2 PO (10:35)
[2021-10-23] MEDS ORDERED: LEVO750T13 PO (10:35)
[2021-10-23] MEDS ORDERED: BACITAB PO (10:35)
== END 2021-10-25 ==
LOC: M PT 10:28
PROVIDERS: ATTEND Orthopaedic Surgery Adult Reconstructive Orthopaedic Surgery
DX: M17.12 Unilateral primary osteoarthritis, left knee (principal)

== ENCOUNTER 2021-10-17 17:21 | Inpatient (IN) | payer OTHER ==
[~2021-10-17] VITALS: Ht 165.1 cm; Wt 98.4 kg
[~2021-10-17 17:21] MED LIST changes: +D3 S1CAP3 PO; +LOSA25TA13 PO
[2021-10-17 19:04] LABS: HEMATOCRIT 45.2 % (42.0-52.0); HEMOGLOBIN 15.7 g/dl (13.5-17.5); MEAN CORPUSCULAR HGB CONC 34.7 g/dl (32.0-36.5); MEAN CORPUSCULAR VOLUME 92.2 fl (80.0-96.0); PLATELET COUNT, AUTOMATED 171 10^3/uL (150-450); WHITE BLOOD COUNT 21.9 10^3/uL (4.0-10.0)
[2021-10-17 19:32] LABS: CK-MB VALUE MASS 2.9 NG/ML (<3.6); MB/CK RELATIVE INDEX 1.95 (< OR =4)
[2021-10-17 19:35] LABS: BASOPHILS 1 % (0-1); LYMPHOCYTES 3 % (16-44); NEUTROPHILS 80 % (28-66); PLATELET ESTIMATE NORMAL (NORMAL)
[2021-10-17] MEDS ORDERED: NS 1,000 ML IV ONE ×2 (19:45→22:00)
[2021-10-17 19:55] LABS: ALBUMIN 2.8 GM/DL (3.2-5.2); ALT/SGPT 33 U/L (12-78); BILIRUBIN,DIRECT < 0.1 MG/DL (0.0-0.2); BILIRUBIN,TOTAL 1.2 MG/DL (0.2-1.0); BLOOD UREA NITROGEN 51 MG/DL (7-18); CALCIUM LEVEL 8.5 MG/DL (8.8-10.2); CARBON DIOXIDE LEVEL 25 MEQ/L (21-32); CHLORIDE LEVEL 102 MEQ/L (98-107); CREATININE FOR GFR 2.97 MG/DL (0.70-1.30); GLOMERULAR FILTRATION RATE 23.1 (>49); GLUCOSE, FASTING 160 MG/DL (70-100); LIPASE 80 U/L (73-393); NT-PRO BNP 545 PG/ML (<125); SODIUM LEVEL 133 MEQ/L (136-145); THYROID STIMULATING HORMONE 0.513 uIU/ML (0.358-3.740); TOTAL PROTEIN 6.8 GM/DL (6.4-8.2)
[2021-10-17 21:05] LABS: CK-MB VALUE MASS 2.5 NG/ML (<3.6); MB/CK RELATIVE INDEX 1.59 (< OR =4)
[2021-10-17] MEDS ORDERED: guaiFENesin DM LIQ 10ML UD PO ONE (21:20)
[2021-10-17 21:21] LABS: RSV AMPLIFICATION NEGATIVE (NEGATIVE)
[2021-10-17] MEDS ORDERED: cefTRIAXone SOD 2 GM in D5W MINI-BAG PLUS 50 ML IV ONE (21:30)
[2021-10-17] MEDS ORDERED: AZITHROMYCIN INJ 500 MG, VIAL MATE ADAPTER 1 EACH in NS 250 ML IV ONE (21:30)
[2021-10-17] MEDS ORDERED: PERCOCET 5MG/325MG TAB PO ONE (21:35)
[2021-10-17] MEDS ORDERED: SUMA25TA3 PO (23:45)
[2021-10-17] MEDS ORDERED: BENZ-18 PO (23:45)
[2021-10-17] MEDS ORDERED: FAMO40TA3 PO (23:45)
[2021-10-17] MEDS ORDERED: ALBU8.5H INH (23:45)
[2021-10-17] MEDS ORDERED: HOME MED LIST COMPLETE! XX SCH (23:50)
[2021-10-18] MEDS ORDERED: SUMAtriptan SUCCINATE 25 MG TAB PO PRN (00:20)
[2021-10-18] MEDS ORDERED: HYDROmorphone HCL 2MG/ML 1ML VIAL IV PRN (00:20)
[2021-10-18] MEDS ORDERED: IPRATROPIUM 0.5MG/ALBUTEROL 2.5MG INH SOL UD 3ML (DUONEB) INH ONE (00:20)
[2021-10-18] MEDS ORDERED: ALBUTEROL 90 MCG/ACT 8GM HFA INHALER INH PRN (00:20)
[2021-10-18] MEDS ORDERED: NS 1,000 ML IV SCH (00:20)
[2021-10-18 04:45] VITALS: BP 120/84
[2021-10-18] MEDS ORDERED: ALBUTEROL SULFATE 2.5 MG/0.5 ML INH NEB SOLN NEB ONE (05:00)
[2021-10-18] MEDS: HEPARIN SOD (PORCINE) 5000UNITS/ML 1ML VIAL/SYRINGE SC SCH ×3 (05:18→22:30)
[2021-10-18 05:32] LABS: APPEARANCE, URINE HAZY (CLEAR); BACTERIA, URINE AUTO NEGATIVE (NEGATIVE); BILIRUBIN, URINE AUTO NEGATIVE (NEGATIVE); BLOOD, URINE BLOOD 1+ (NEGATIVE); COLOR, URINE YELLOW (YELLOW); GLUCOSE, URINE (UA) AUTO 1+ mg/dL (NEGATIVE); KETONE, URINE AUTO TRACE mg/dL (NEGATIVE); LEUKOCYTE ESTERASE, URINE AUTO NEGATIVE (NEGATIVE); MUCUS, URINE SMALL (NEGATIVE); NITRITE, URINE AUTO NEGATIVE (NEGATIVE); PROTEIN, URINE AUTO 2+ mg/dL (NEGATIVE); RBC, URINE AUTO 5 /HPF (0-3); SPECIFIC GRAVITY URINE AUTO 1.026 (1.002-1.035); SQUAMOUS EPITHELIAL CELL UR AU 0 /HPF (0-6); TRANSITIONAL EPITHELIAL AUTO <1 /HPF; UROBILINOGEN, URINE AUTO 0.2 mg/dL (0.0-2.0); WBC, URINE AUTO 2 /HPF (0-3)
[2021-10-18 07:00] LABS: HEMOGLOBIN A1c 5.8 %
[2021-10-18] MEDS ORDERED: IPRATROPIUM 0.5MG/ALBUTEROL 2.5MG INH SOL UD 3ML (DUONEB) INH SCH (08:00)
[2021-10-18] MEDS: SODIUM CHLORIDE 0.9% 3ML NEB SOLUTION FOR INHALATION INH SCH ×3 (08:00→20:00)
[2021-10-18] MEDS: methylPREDNISolone 40MG 1ML VIAL IV SCH ×3 (08:16→23:18)
[2021-10-18] MEDS: PANTOPRAZOLE 40MG TAB (PROTONIX) PO SCH ×2 (08:16→20:39)
[2021-10-18 08:26] VITALS: BP 120/80
[2021-10-18] MEDS: IPRATROPIUM 0.5MG/ALBUTEROL 2.5MG INH SOL UD 3ML (DUONEB) INH SCH ×4 (08:33→20:51)
[2021-10-18] MEDS: guaiFENesin SYRUP 200MG 10ML UDC PO PRN ×2 (08:48→17:57)
[2021-10-18] MEDS: ACETAMINOPHEN 500 MG TAB PO SCH ×2 (09:58→20:40)
[2021-10-18 12:11] VITALS: BP 144/96
[2021-10-18] MEDS ORDERED: VANCOMYCIN HCL 1,000 MG, VIAL MATE ADAPTER 1 EACH in NS 250 ML IV SCH (12:30)
[2021-10-18] MEDS: LACTOBACILLUS ACIDOPHILUS CAP (BACID) PO SCH (12:56)
[2021-10-18 20:00] VITALS: BP 139/71
[2021-10-18] MEDS: LIDOCAINE 5% (LIDODERM) PATCH TD SCH (20:46)
[2021-10-18] MEDS ORDERED: cefTRIAXone SOD 1 GM in D5W MINI-BAG PLUS 50 ML IV SCH (23:00)
[2021-10-18] MEDS: AZITHROMYCIN INJ 500 MG, VIAL MATE ADAPTER 1 EACH in NS 250 ML IV SCH (23:18)
[2021-10-19] VITALS (7 sets, daily range): BP systolic 129–158; BP diastolic 66–96
[2021-10-19] MEDS: SODIUM CHLORIDE 0.9% 3ML NEB SOLUTION FOR INHALATION INH SCH ×4 (01:54→20:25)
[2021-10-19] MEDS: guaiFENesin SYRUP 200MG 10ML UDC PO PRN ×4 (02:57→23:34)
[2021-10-19] MEDS: IPRATROPIUM 0.5MG/ALBUTEROL 2.5MG INH SOL UD 3ML (DUONEB) INH SCH ×6 (03:30→20:24)
[2021-10-19] MEDS: HEPARIN SOD (PORCINE) 5000UNITS/ML 1ML VIAL/SYRINGE SC SCH ×3 (05:31→20:42)
[2021-10-19 08:45] LABS: HEMOGLOBIN 15.5 g/dl (13.5-17.5); MEAN CORPUSCULAR HGB CONC 34.4 g/dl (32.0-36.5); PLATELET COUNT, AUTOMATED 220 10^3/uL (150-450); WHITE BLOOD COUNT 20.7 10^3/uL (4.0-10.0)
[2021-10-19 09:13] LABS: BLOOD UREA NITROGEN 27 MG/DL (7-18); CALCIUM LEVEL 9.6 MG/DL (8.8-10.2); CARBON DIOXIDE LEVEL 26 MEQ/L (21-32); CHLORIDE LEVEL 106 MEQ/L (98-107); CREATININE FOR GFR 0.82 MG/DL (0.70-1.30); GLOMERULAR FILTRATION RATE > 60.0 (>49); GLUCOSE, FASTING 189 MG/DL (70-100); MAGNESIUM LEVEL 2.3 MG/DL (1.8-2.4); PHOSPHORUS LEVEL 2.4 MG/DL (2.5-4.9); POTASSIUM SERUM 3.5 MEQ/L (3.5-5.1); SODIUM LEVEL 138 MEQ/L (136-145)
[2021-10-19] MEDS: PANTOPRAZOLE 40MG TAB (PROTONIX) PO SCH ×2 (09:13→20:42)
[2021-10-19] MEDS: LACTOBACILLUS ACIDOPHILUS CAP (BACID) PO SCH (09:13)
[2021-10-19] MEDS: methylPREDNISolone 40MG 1ML VIAL IV SCH ×3 (09:14→20:41)
[2021-10-19] MEDS: ACETAMINOPHEN 500 MG TAB PO SCH ×2 (09:14→20:42)
[2021-10-19] MEDS: **NOTE PATIENT COMMENT** MISC XX SCH (09:15)
[2021-10-19 09:43] LABS: ATYPICAL LYMPH 1 % (0-5); LYMPHOCYTES 4 % (16-44); MONOCYTES 6 % (0-5); NEUTROPHILS 75 % (28-66); PLATELET ESTIMATE NORMAL (NORMAL)
[2021-10-19] MEDS: SENOKOT S TAB PO SCH (14:01)
[2021-10-19] MEDS: LIDOCAINE 5% (LIDODERM) PATCH TD SCH (20:41)
[2021-10-19] MEDS: CEFEPIME HCL 2 GM in D5W MINI-BAG PLUS 50 ML IV SCH (20:41)
[2021-10-19] MEDS ORDERED: PROPRANOLOL 20 MG TAB PO ONE (21:40)
[2021-10-19] MEDS: AZITHROMYCIN INJ 500 MG, VIAL MATE ADAPTER 1 EACH in NS 250 ML IV SCH (23:35)
[2021-10-20] MEDS: SODIUM CHLORIDE 0.9% 3ML NEB SOLUTION FOR INHALATION INH SCH ×4 (00:30→20:00)
[2021-10-20] MEDS: IPRATROPIUM 0.5MG/ALBUTEROL 2.5MG INH SOL UD 3ML (DUONEB) INH SCH ×6 (03:59→20:07)
[2021-10-20] MEDS: CEFEPIME HCL 2 GM in D5W MINI-BAG PLUS 50 ML IV SCH ×3 (04:24→20:38)
[2021-10-20] MEDS: methylPREDNISolone 40MG 1ML VIAL IV SCH ×4 (04:24→20:39)
[2021-10-20 06:29] LABS: BASO # 0.2 10^3/uL (0.0-0.2); HEMATOCRIT 42.8 % (42.0-52.0); HEMOGLOBIN 15.2 g/dl (13.5-17.5); LYMPH # 0.6 10^3/uL (1.5-5.0); LYMPH % 3.5 % (24.0-44.0); MEAN CORPUSCULAR HEMOGLOBIN 31.7 pg (27.0-33.0); MEAN CORPUSCULAR HGB CONC 35.5 g/dl (32.0-36.5); MEAN CORPUSCULAR VOLUME 89.4 fl (80.0-96.0); MONO # 1.2 10^3/uL (0.0-0.8); MONO % 7.2 % (2.0-8.0); NEUTROPHILS # 13.9 10^3/uL (1.5-8.5); NEUTROPHILS % 85.4 % (36.0-66.0); PLATELET COUNT, AUTOMATED 253 10^3/uL (150-450); RED BLOOD COUNT 4.79 10^6/uL (4.30-6.10); WHITE BLOOD COUNT 16.3 10^3/uL (4.0-10.0)
[2021-10-20] MEDS: HEPARIN SOD (PORCINE) 5000UNITS/ML 1ML VIAL/SYRINGE SC SCH ×3 (06:49→22:01)
[2021-10-20] MEDS: guaiFENesin SYRUP 200MG 10ML UDC PO PRN ×3 (06:52→22:01)
[2021-10-20 06:58] LABS: BLOOD UREA NITROGEN 26 MG/DL (7-18); CALCIUM LEVEL 8.6 MG/DL (8.8-10.2); CARBON DIOXIDE LEVEL 27 MEQ/L (21-32); CHLORIDE LEVEL 107 MEQ/L (98-107); CREATININE FOR GFR 0.65 MG/DL (0.70-1.30); GLOMERULAR FILTRATION RATE > 60.0 (>49); GLUCOSE, FASTING 145 MG/DL (70-100); MAGNESIUM LEVEL 2.2 MG/DL (1.8-2.4); PHOSPHORUS LEVEL 3.1 MG/DL (2.5-4.9); POTASSIUM SERUM 4.2 MEQ/L (3.5-5.1); SODIUM LEVEL 139 MEQ/L (136-145)
[2021-10-20] MEDS: ACETAMINOPHEN 500 MG TAB PO SCH ×2 (08:33→20:39)
[2021-10-20] MEDS: PANTOPRAZOLE 40MG TAB (PROTONIX) PO SCH ×2 (08:34→20:39)
[2021-10-20] MEDS: LACTOBACILLUS ACIDOPHILUS CAP (BACID) PO SCH (08:34)
[2021-10-20] MEDS: **NOTE PATIENT COMMENT** MISC XX SCH (08:34)
[2021-10-20] MEDS: SENOKOT S TAB PO SCH (08:34)
[2021-10-20 08:40] VITALS: BP 150/87
[2021-10-20] MEDS: PROPRANOLOL 20 MG TAB PO SCH (15:09)
[2021-10-20 20:00] VITALS: BP 162/96
[2021-10-20] MEDS: LIDOCAINE 5% (LIDODERM) PATCH TD SCH (20:40)
[2021-10-21] VITALS (7 sets, daily range): BP systolic 132–177; BP diastolic 80–110; O2SAT 95
[2021-10-21] MEDS: AZITHROMYCIN INJ 500 MG, VIAL MATE ADAPTER 1 EACH in NS 250 ML IV SCH (00:35)
[2021-10-21] MEDS: SODIUM CHLORIDE 0.9% 3ML NEB SOLUTION FOR INHALATION INH SCH ×4 (00:53→20:14)
[2021-10-21] MEDS: IPRATROPIUM 0.5MG/ALBUTEROL 2.5MG INH SOL UD 3ML (DUONEB) INH SCH ×6 (03:35→19:58)
[2021-10-21] MEDS: CEFEPIME HCL 2 GM in D5W MINI-BAG PLUS 50 ML IV SCH ×3 (04:02→19:58)
[2021-10-21] MEDS: methylPREDNISolone 40MG 1ML VIAL IV SCH ×3 (04:02→17:04)
[2021-10-21] MEDS: HEPARIN SOD (PORCINE) 5000UNITS/ML 1ML VIAL/SYRINGE SC SCH ×3 (05:24→20:36)
[2021-10-21 06:25] LABS: BLOOD UREA NITROGEN 26 MG/DL (7-18); CALCIUM LEVEL 8.5 MG/DL (8.8-10.2); CARBON DIOXIDE LEVEL 28 MEQ/L (21-32); CHLORIDE LEVEL 104 MEQ/L (98-107); CREATININE FOR GFR 0.64 MG/DL (0.70-1.30); GLOMERULAR FILTRATION RATE > 60.0 (>49); GLUCOSE, FASTING 165 MG/DL (70-100); MAGNESIUM LEVEL 2.2 MG/DL (1.8-2.4); PHOSPHORUS LEVEL 2.8 MG/DL (2.5-4.9); POTASSIUM SERUM 4.2 MEQ/L (3.5-5.1); SODIUM LEVEL 137 MEQ/L (136-145)
[2021-10-21] MEDS: ACETAMINOPHEN 500 MG TAB PO SCH ×2 (08:14→19:57)
[2021-10-21] MEDS: SENOKOT S TAB PO SCH (08:15)
[2021-10-21] MEDS: PANTOPRAZOLE 40MG TAB (PROTONIX) PO SCH ×2 (08:15→19:58)
[2021-10-21] MEDS: PROPRANOLOL 20 MG TAB PO SCH (08:15)
[2021-10-21] MEDS: LACTOBACILLUS ACIDOPHILUS CAP (BACID) PO SCH (08:15)
[2021-10-21] MEDS: **NOTE PATIENT COMMENT** MISC XX SCH (08:16)
[2021-10-21] MEDS: guaiFENesin SYRUP 200MG 10ML UDC PO PRN ×2 (11:03→20:36)
[2021-10-21] MEDS: LOSARTAN 25 MG TAB PO SCH (11:50)
[2021-10-21] MEDS ORDERED: amLODIPine 5 MG TAB PO ONE (16:45)
[2021-10-21] MEDS: LIDOCAINE 5% (LIDODERM) PATCH TD SCH (19:58)
[2021-10-22] MEDS: AZITHROMYCIN INJ 500 MG, VIAL MATE ADAPTER 1 EACH in NS 250 ML IV SCH (00:27)
[2021-10-22] MEDS: methylPREDNISolone 40MG 1ML VIAL IV SCH ×3 (00:27→17:55)
[2021-10-22] MEDS: IPRATROPIUM 0.5MG/ALBUTEROL 2.5MG INH SOL UD 3ML (DUONEB) INH SCH ×6 (00:27→19:53)
[2021-10-22] MEDS: SODIUM CHLORIDE 0.9% 3ML NEB SOLUTION FOR INHALATION INH SCH ×4 (00:59→20:31)
[2021-10-22] MEDS: CEFEPIME HCL 2 GM in D5W MINI-BAG PLUS 50 ML IV SCH ×3 (03:38→20:20)
[2021-10-22] MEDS: HEPARIN SOD (PORCINE) 5000UNITS/ML 1ML VIAL/SYRINGE SC SCH ×3 (05:49→20:22)
[2021-10-22 06:00] VITALS: BP 154/107
[2021-10-22 08:45] LABS: HEMATOCRIT 46.7 % (42.0-52.0); HEMOGLOBIN 16.3 g/dl (13.5-17.5); MEAN CORPUSCULAR HEMOGLOBIN 31.8 pg (27.0-33.0); MEAN CORPUSCULAR HGB CONC 34.9 g/dl (32.0-36.5); PLATELET COUNT, AUTOMATED 285 10^3/uL (150-450); RED BLOOD COUNT 5.13 10^6/uL (4.30-6.10); WHITE BLOOD COUNT 9.8 10^3/uL (4.0-10.0)
[2021-10-22] MEDS: SENOKOT S TAB PO SCH (09:00)
[2021-10-22 09:19] LABS: BLOOD UREA NITROGEN 24 MG/DL (7-18); CALCIUM LEVEL 8.6 MG/DL (8.8-10.2); CARBON DIOXIDE LEVEL 30 MEQ/L (21-32); CHLORIDE LEVEL 99 MEQ/L (98-107); CREATININE FOR GFR 0.78 MG/DL (0.70-1.30); GLOMERULAR FILTRATION RATE > 60.0 (>49); GLUCOSE, FASTING 201 MG/DL (70-100); MAGNESIUM LEVEL 2.1 MG/DL (1.8-2.4); PHOSPHORUS LEVEL 3.7 MG/DL (2.5-4.9); POTASSIUM SERUM 4.3 MEQ/L (3.5-5.1); SODIUM LEVEL 136 MEQ/L (136-145)
[2021-10-22] MEDS: LACTOBACILLUS ACIDOPHILUS CAP (BACID) PO SCH (09:52)
[2021-10-22] MEDS: PANTOPRAZOLE 40MG TAB (PROTONIX) PO SCH ×2 (09:52→20:21)
[2021-10-22] MEDS: ACETAMINOPHEN 500 MG TAB PO SCH ×2 (09:53→20:21)
[2021-10-22] MEDS: LOSARTAN 25 MG TAB PO SCH (09:55)
[2021-10-22] MEDS: PROPRANOLOL 20 MG TAB PO SCH (09:55)
[2021-10-22] MEDS: amLODIPine 5 MG TAB PO SCH (09:55)
[2021-10-22] MEDS: **NOTE PATIENT COMMENT** MISC XX SCH (09:56)
[2021-10-22] MEDS: guaiFENesin SYRUP 200MG 10ML UDC PO PRN ×2 (09:56→22:08)
[2021-10-22 14:00] VITALS: BP 143/90
[2021-10-22] MEDS: LIDOCAINE 5% (LIDODERM) PATCH TD SCH (20:21)
[2021-10-22 21:32] VITALS: BP 170/92
[2021-10-23] MEDS: SODIUM CHLORIDE 0.9% 3ML NEB SOLUTION FOR INHALATION INH SCH (00:11)
[2021-10-23] MEDS: methylPREDNISolone 40MG 1ML VIAL IV SCH ×2 (00:57→08:30)
[2021-10-23] MEDS: CEFEPIME HCL 2 GM in D5W MINI-BAG PLUS 50 ML IV SCH (04:51)
[2021-10-23] MEDS: HEPARIN SOD (PORCINE) 5000UNITS/ML 1ML VIAL/SYRINGE SC SCH (04:55)
[2021-10-23] MEDS: IPRATROPIUM 0.5MG/ALBUTEROL 2.5MG INH SOL UD 3ML (DUONEB) INH SCH ×3 (04:58→05:14)
[2021-10-23 05:58] VITALS: BP 161/94
[2021-10-23 06:05] VITALS: BP 140/96
[2021-10-23] MEDS: SENOKOT S TAB PO SCH (08:31)
[2021-10-23] MEDS: PANTOPRAZOLE 40MG TAB (PROTONIX) PO SCH (08:31)
[2021-10-23] MEDS: ACETAMINOPHEN 500 MG TAB PO SCH (08:32)
[2021-10-23] MEDS: LACTOBACILLUS ACIDOPHILUS CAP (BACID) PO SCH (08:32)
[2021-10-23 08:34] VITALS: BP 144/94
[2021-10-23] MEDS: LOSARTAN 25 MG TAB PO SCH (08:34)
[2021-10-23] MEDS: PROPRANOLOL 20 MG TAB PO SCH (08:34)
[2021-10-23] MEDS: **NOTE PATIENT COMMENT** MISC XX SCH (08:35)
[2021-10-23] MEDS: amLODIPine 5 MG TAB PO SCH (08:35)
[2021-10-23] MEDS ORDERED: LEVO750T13 PO (10:35)
[2021-10-23] MEDS ORDERED: PRED10TA2 PO (10:35)
[2021-10-23] MEDS ORDERED: BACITAB PO (10:35)
[2021-10-23] MEDS ORDERED: COZA1TAB PO (10:35)
[2021-10-23 11:44] LABS: CHOLESTEROL LEVEL 163 MG/DL (<200); HDL CHOLESTEROL 42 MG/DL (>40); LDL CHOLESTEROL 97 MG/DL (<100); NON-HDL-C 121 MG/DL; TRIGLYCERIDES LEVEL 119 MG/DL (<150)
[2021-10-23 12:07] LABS: HEMOGLOBIN A1c 6.1 %
[2021-10-23 16:08] LABS: BODY FLUID CULTURE Not indicated. (.); LEGIONELLA ANTIGEN URINE Negative (Negative); ORGANISM ID Not indicated. (.); SPECIMEN SOURCE Urine (.); URINE STREP PNEUMONIAE ANTIGEN Positive (Negative)
[2021-10-23] MEDS ORDERED: LOSARTAN 25 MG TAB PO SCH (21:00)
== END 2021-10-23 12:15 | disposition home or self-care (01) | DRG 871 ==
LOC: EDBD 17:21 → M ED 17:21 → M ED INP 10-18 00:20 → M PCU 10-18 04:45 → M MS5PR 10-21 18:21
PROVIDERS: ADMIT Internal Medicine; ATTEND Internal Medicine
DX: A41.9 Sepsis, unspecified organism (principal); J18.9 Pneumonia, unspecified organism; N17.9 Acute kidney failure, unspecified; E87.1 Hypo-osmolality and hyponatremia; R73.9 Hyperglycemia, unspecified; I10 Essential (primary) hypertension; G43.909 Migraine, unspecified, not intractable, without status migrainosus; K21.9 Gastro-esophageal reflux disease without esophagitis; Z88.6 Allergy status to analgesic agent; Z79.899 Other long term (current) drug therapy; Z20.822 Contact with and (suspected) exposure to COVID-19; K44.9 Diaphragmatic hernia without obstruction or gangrene; R07.81 Pleurodynia

== ENCOUNTER → 2021-11-22 | Outpatient (REF) | payer OTHER ==
[~2021-11-22] MED LIST changes: +ALBU8.5H INH; +BACITAB PO; +COZA1TAB PO; +LEVO750T13 PO; +SUMA25TA3 PO
== END ==
LOC: M LAB REF 12:08
PROVIDERS: ATTEND Physician Assistant
DX: R50.9 Fever, unspecified (principal)

== ENCOUNTER → 2021-11-30 | Outpatient (CLI) | payer OTHER | LOC: M RAD 09:59 | PROVIDERS: ATTEND Physician Assistant | DX: J84.9 Interstitial pulmonary disease, unspecified (principal); I25.10 Atherosclerotic heart disease of native coronary artery without angina pectoris; K44.9 Diaphragmatic hernia without obstruction or gangrene ==

== ENCOUNTER 2022-01-03 16:06 | Observation (INO) | payer OTHER ==
[~2022-01-03] VITALS: Ht 165.1 cm; Wt 89.3 kg
[~2022-01-03 16:06] MED LIST changes: +BAYE81TA10 PO; +CYCL-707 PO; +FLUT15.820; +REGL10TA6 PO
[2022-01-03 16:41] LABS: VENOUS BASE EXCESS -0.5 (-2.0-2.0); VENOUS O2 SATURATION 74.7 % (60.0-80.0); VENOUS PARTIAL PRESSURE CO2 43.8 mmHg (38.0-50.0); VENOUS PARTIAL PRESSURE O2 40.9 mmHg (30.0-50.0); VENOUS PH 7.374 UNITS (7.330-7.430); VENOUS STANDARD HCO3 23.5 MEQ/L; VENOUS TOTAL CO2 26.3 MEQ/L (24.0-28.0)
[2022-01-03 16:48] LABS: BASO % 0.4 % (0.0-1.0); EOS # 0.2 10^3/uL (0.0-0.5); EOS % 1.6 % (0.0-3.0); HEMATOCRIT 46.1 % (42.0-52.0); HEMOGLOBIN 15.7 g/dl (13.5-17.5); LYMPH # 1.2 10^3/uL (1.5-5.0); LYMPH % 13.1 % (24.0-44.0); MEAN CORPUSCULAR HEMOGLOBIN 31.8 pg (27.0-33.0); MEAN CORPUSCULAR HGB CONC 34.1 g/dl (32.0-36.5); MEAN CORPUSCULAR VOLUME 93.3 fl (80.0-96.0); MONO % 10.5 % (2.0-8.0); NEUTROPHILS # 6.9 10^3/uL (1.5-8.5); NEUTROPHILS % 73.3 % (36.0-66.0); PLATELET COUNT, AUTOMATED 238 10^3/uL (150-450); RED BLOOD COUNT 4.94 10^6/uL (4.30-6.10); WHITE BLOOD COUNT 9.4 10^3/uL (4.0-10.0)
[2022-01-03 17:27] LABS: ALT/SGPT 50 U/L (12-78); BILIRUBIN,DIRECT 0.2 MG/DL (0.0-0.2); BLOOD UREA NITROGEN 12 MG/DL (7-18); CALCIUM LEVEL 9.1 MG/DL (8.8-10.2); CARBON DIOXIDE LEVEL 24 MEQ/L (21-32); CHLORIDE LEVEL 107 MEQ/L (98-107); CREATININE FOR GFR 0.66 MG/DL (0.70-1.30); GLOMERULAR FILTRATION RATE > 60.0 (>49); GLUCOSE, FASTING 107 MG/DL (70-100); NT-PRO BNP 1085 PG/ML (<125); POTASSIUM SERUM 4.3 MEQ/L (3.5-5.1); SODIUM LEVEL 140 MEQ/L (136-145); THYROID STIMULATING HORMONE 0.981 uIU/ML (0.358-3.740); TOTAL PROTEIN 6.9 GM/DL (6.4-8.2)
[2022-01-03] MEDS ORDERED: ISOVUE-370 76% 100ML VIAL As Ordered ONE (17:29)
[2022-01-03 18:51] LABS: INR 1.06; PROTHROMBIN TIME 14.2 SECONDS (12.7-14.5)
[2022-01-03 18:52] LABS: PARTIAL THROMBOPLASTIN TIME 31.1 SECONDS (25.9-37.0)
[2022-01-03] MEDS ORDERED: CETI-24 PO (18:58)
[2022-01-03] MEDS ORDERED: HOME MED LIST COMPLETE! XX SCH (19:00)
[2022-01-03] MEDS ORDERED: ACETAMINOPHEN TAB 650MG DOSE (2X325MG) PO PRN (20:15)
[2022-01-03] MEDS ORDERED: ENOXAPARIN 100MG/1ML SYRINGE (J1650 PER 10MG) SC ONE (20:15)
[2022-01-03 22:56] VITALS: BP 149/96
[2022-01-04 04:00] VITALS: BP_SYST 127; BP_SYST 97; BP_DIAS 68; BP_DIAS 86
[2022-01-04 05:21] LABS: HEMATOCRIT 42.3 % (42.0-52.0); HEMOGLOBIN 14.6 g/dl (13.5-17.5); MEAN CORPUSCULAR HEMOGLOBIN 32.2 pg (27.0-33.0); MEAN CORPUSCULAR HGB CONC 34.5 g/dl (32.0-36.5); MEAN CORPUSCULAR VOLUME 93.4 fl (80.0-96.0); PLATELET COUNT, AUTOMATED 233 10^3/uL (150-450); RED BLOOD COUNT 4.53 10^6/uL (4.30-6.10)
[2022-01-04 05:49] LABS: BLOOD UREA NITROGEN 11 MG/DL (7-18); CARBON DIOXIDE LEVEL 27 MEQ/L (21-32); CHLORIDE LEVEL 106 MEQ/L (98-107); CREATININE FOR GFR 0.89 MG/DL (0.70-1.30); GLOMERULAR FILTRATION RATE > 60.0 (>49); GLUCOSE, FASTING 115 MG/DL (70-100); POTASSIUM SERUM 3.3 MEQ/L (3.5-5.1); SODIUM LEVEL 137 MEQ/L (136-145)
[2022-01-04] MEDS ORDERED: POTASSIUM CHLORIDE 10% LIQ 20 MEQ/15 ML UDC PO ONE (06:00)
[2022-01-04 07:56] VITALS: BP 132/84
[2022-01-04] MEDS ORDERED: APIXABAN 2.5 MG TAB (ELIQUIS) PO SCH (09:00)
[2022-01-04 12:07] VITALS: BP 120/87
[2022-01-04] MEDS ORDERED: ELIQ5TAB PO (14:45)
[2022-01-04 16:09] VITALS: BP 128/91
[2022-01-09 11:31] LABS: PTT LUPUS TYPE ANTICOAG SCREEN 1.2 (0-1.2)
[2022-01-09 11:38] LABS: DRVV CONFIRM 41.1 SEC; LUPUS CONFIRM RATIO 1.1
[2022-01-09 11:39] LABS: NORMALIZED RATIO 1.09 (0.00-1.20)
[2022-01-10 11:10] LABS: ANTI THROMBIN 3 ANTIGEN IMMUNO 75 % (72-124); ANTI THROMBIN 3 FUNCT ACTIVITY 88 % (75-135); CARDIOLIPIN IGA ANTIBODY <9 APL U/mL (0-11); CARDIOLIPIN IGG ANTIBODY <9 GPL U/mL (0-14); CARDIOLIPIN IGM ANTIBODY <9 MPL U/mL (0-12); PHOSPHOLIPIDS LEVEL 148 mg/dL (150-250); PROTEIN C FUNCTIONAL ACTIVITY 86 % (73-180); PROTEIN S FUNCTIONAL ACTIVITY 95 % (63-140)
[2022-01-11] MEDS ORDERED: APIXABAN 5 MG TAB (ELIQUIS) PO SCH (09:00)
== END 2022-01-04 16:58 | disposition home or self-care (01) ==
LOC: M ED 16:06 → M ED INP 16:07 → ENRESERV 21:40 → M PCU 22:58
PROVIDERS: ADMIT Internal Medicine; ATTEND Internal Medicine
DX: I26.99 Other pulmonary embolism without acute cor pulmonale (principal); K44.9 Diaphragmatic hernia without obstruction or gangrene; E78.00 Pure hypercholesterolemia, unspecified; I10 Essential (primary) hypertension; K21.9 Gastro-esophageal reflux disease without esophagitis; Z79.82 Long term (current) use of aspirin; Z79.01 Long term (current) use of anticoagulants; Z88.5 Allergy status to narcotic agent; Z79.899 Other long term (current) drug therapy
CPT/HCPCS: 36415; 71045; 71275; 80048; 80076; 81240; 82803; 83880; 84311; 84443; 85025; 85027; 85300; 85301; 85303; 85305; 85610; 85613; 85730; 86147; 87040; 87486; 87581; 87633; 87798; 93005; 93041; 93306; 94760; 96372; 99285; J1650; Q9967

== ENCOUNTER → 2022-02-06 | Outpatient (CLI) | payer OTHER ==
[~2022-02-06] MED LIST changes: +CETI-24 PO; +ELIQ5TAB PO
[2022-02-06 16:23] LABS: BASO # 0.1 10^3/uL (0.0-0.2); BASO % 0.6 % (0.0-1.0); EOS # 0.4 10^3/uL (0.0-0.5); HEMATOCRIT 44.8 % (42.0-52.0); HEMOGLOBIN 14.9 g/dl (13.5-17.5); LYMPH # 1.4 10^3/uL (1.5-5.0); LYMPH % 14.5 % (24.0-44.0); MEAN CORPUSCULAR HEMOGLOBIN 31.4 pg (27.0-33.0); MEAN CORPUSCULAR HGB CONC 33.3 g/dl (32.0-36.5); MEAN CORPUSCULAR VOLUME 94.5 fl (80.0-96.0); MONO % 10.2 % (2.0-8.0); NEUTROPHILS # 6.8 10^3/uL (1.5-8.5); NEUTROPHILS % 70.5 % (36.0-66.0); PLATELET COUNT, AUTOMATED 227 10^3/uL (150-450); RED BLOOD COUNT 4.74 10^6/uL (4.30-6.10); WHITE BLOOD COUNT 9.7 10^3/uL (4.0-10.0)
[2022-02-06 16:47] LABS: ALBUMIN 3.5 GM/DL (3.2-5.2); ALT/SGPT 25 U/L (12-78); BILIRUBIN,TOTAL 0.9 MG/DL (0.2-1.0); BLOOD UREA NITROGEN 11 MG/DL (7-18); CARBON DIOXIDE LEVEL 29 MEQ/L (21-32); CHLORIDE LEVEL 102 MEQ/L (98-107); GLOMERULAR FILTRATION RATE > 60.0 (>49); GLUCOSE, FASTING 140 MG/DL (70-100); LIPASE 141 U/L (73-393); NT-PRO BNP 88 PG/ML (<125); POTASSIUM SERUM 3.7 MEQ/L (3.5-5.1); SODIUM LEVEL 136 MEQ/L (136-145); TOTAL PROTEIN 6.9 GM/DL (6.4-8.2)
== END ==
LOC: M ADAMS 14:14
PROVIDERS: ATTEND Registered Nurse
DX: R30.0 Dysuria (principal); R53.83 Other fatigue

== ENCOUNTER → 2022-02-07 | Outpatient (CLI) | payer OTHER | LOC: M WHC 12:28 | PROVIDERS: ATTEND Registered Nurse | DX: N20.0 Calculus of kidney (principal) ==

== ENCOUNTER → 2022-02-18 | Outpatient (CLI) | payer OTHER | LOC: M CARPUL 09:12 | PROVIDERS: ATTEND Student in an Organized Health Care Education/Training Program | DX: I71.2 Thoracic aortic aneurysm, without rupture (principal); I08.3 Combined rheumatic disorders of mitral, aortic and tricuspid valves ==

== ENCOUNTER → 2022-03-27 | Outpatient (CLI) | payer OTHER, MEDICAID ==
[~2022-03-27] MED LIST changes: +LEVO1TAB40 PO; -LEVO750T13 PO
[2022-03-27 13:30] LABS: HEMOGLOBIN A1c 5.4 %
[2022-03-27 13:34] LABS: CHOLESTEROL RISK RATIO 2.4 (<5)
== END ==
LOC: M ADAMS 08:48
PROVIDERS: ATTEND Student in an Organized Health Care Education/Training Program
DX: R73.01 Impaired fasting glucose (principal); I10 Essential (primary) hypertension

== ENCOUNTER → 2022-07-04 | Outpatient (REF) | payer OTHER, MEDICAID | LOC: M SFHCPLAZ 12:59 → M SFHCADAM 12:59 | PROVIDERS: ATTEND Internal Medicine Hematology | DX: I26.94 Multiple subsegmental thrombotic pulmonary emboli without acute cor pulmonale (principal) ==

== ENCOUNTER → 2022-08-05 | Outpatient (CLI) | payer OTHER, MEDICAID | LOC: M SOG 09:13 | PROVIDERS: ATTEND Orthopaedic Surgery Adult Reconstructive Orthopaedic Surgery | DX: M17.0 Bilateral primary osteoarthritis of knee (principal) ==

== ENCOUNTER → 2022-09-09 | Outpatient (CLI) | payer OTHER | LOC: M RAD 10:08 | PROVIDERS: ATTEND Orthopaedic Surgery Adult Reconstructive Orthopaedic Surgery | DX: M17.0 Bilateral primary osteoarthritis of knee (principal) ==

== ENCOUNTER 2022-09-12 10:12 | Outpatient (RCR) | payer OTHER ==
[2022-09-20] MEDS ORDERED: CEFD300C41 PO (09:25)
[2022-09-20] MEDS ORDERED: PRED10TA2 PO (09:25)
[2022-09-24] MEDS ORDERED: LOSA25TA13 PO (14:09)
[2022-09-24] MEDS ORDERED: AMOX875T2 PO (14:09)
[2022-09-24] MEDS ORDERED: ELIQ5TAB PO (14:09)
[2022-09-24] MEDS ORDERED: VITMTA PO (14:09)
[2022-09-25] MEDS ORDERED: ACET1TAB55 PO (10:07)
[2022-09-25] MEDS ORDERED: COLA100C5 PO (10:07)
[2022-09-25] MEDS ORDERED: SENN18TA PO (10:07)
[2022-09-25] MEDS ORDERED: OXYC-517 PO (10:07)
== END 2022-09-24 ==
LOC: M PT 10:12
PROVIDERS: ATTEND Orthopaedic Surgery Adult Reconstructive Orthopaedic Surgery
DX: M17.0 Bilateral primary osteoarthritis of knee (principal)

== ENCOUNTER → 2022-09-19 | Outpatient (CLI) | payer MEDICAID, OTHER ==
[~2022-09-19] MED LIST changes: +CEFD300C41 PO
== END ==
LOC: M LABSMTC 09:39
PROVIDERS: ATTEND Anesthesiology
DX: Z01.812 Encounter for preprocedural laboratory examination (principal); Z11.52 Encounter for screening for COVID-19

== ENCOUNTER → 2022-09-23 | Outpatient (REF) | payer OTHER ==
[~2022-09-23] MED LIST changes: +ACET1TAB55 PO; +AMOX875T2 PO; +COLA100C5 PO; +OXYC-517 PO; +SENN18TA PO; +VITMTA PO
[2022-09-23 14:03] LABS: BASO # 0.1 10^3/uL (0.0-0.2); BASO % 0.9 % (0.0-1.0); EOS # 0.4 10^3/uL (0.0-0.5); EOS % 6.1 % (0.0-3.0); HEMOGLOBIN 17.8 g/dl (13.5-17.5); LYMPH # 1.5 10^3/uL (1.5-5.0); LYMPH % 21.9 % (24.0-44.0); MEAN CORPUSCULAR HEMOGLOBIN 31.9 pg (27.0-33.0); MEAN CORPUSCULAR HGB CONC 33.6 g/dl (32.0-36.5); MONO # 0.9 10^3/uL (0.0-0.8); NEUTROPHILS # 3.8 10^3/uL (1.5-8.5); NEUTROPHILS % 56.7 % (36.0-66.0); PLATELET COUNT, AUTOMATED 236 10^3/uL (150-450); RED BLOOD COUNT 5.58 10^6/uL (4.30-6.10); WHITE BLOOD COUNT 6.7 10^3/uL (4.0-10.0)
[2022-09-23 14:34] LABS: ALBUMIN 3.6 G/DL (3.2-5.2); ALKALINE PHOSPHATASE 73 U/L (46-116); ALT/SGPT 25 U/L (7.0-40); AST/SGOT 23 U/L (<34); BILIRUBIN,TOTAL 1.1 MG/DL (0.3-1.2); BLOOD UREA NITROGEN 20 MG/DL (9-23); CALCIUM LEVEL 8.9 MG/DL (8.3-10.6); CARBON DIOXIDE LEVEL 29 MMOL/L (20-31); CHLORIDE LEVEL 101 MMOL/L (98-107); CREATININE FOR GFR 0.92 MG/DL (0.70-1.30); FREE T4 1.87 NG/DL (0.89-1.76); GLOMERULAR FILTRATION RATE > 60.0 (>49); GLUCOSE, FASTING 92 MG/DL (74-106); POTASSIUM SERUM 4.7 MMOL/L (3.5-5.1); SODIUM LEVEL 138 MMOL/L (136-145); TOTAL PROTEIN 6.9 G/DL (5.7-8.2); VITAMIN B12 LEVEL 749 PG/ML (211-911)
[2022-09-23 14:37] LABS: THYROID STIMULATING HORMONE 3.682 uIU/ML (0.55-4.78)
[2022-09-23 14:39] LABS: FOLATE > 24.0 NG/ML (>5.4)
== END ==
LOC: M LABDRWAD 12:33
PROVIDERS: ATTEND Internal Medicine Hematology
DX: Z01.818 Encounter for other preprocedural examination (principal); I26.94 Multiple subsegmental thrombotic pulmonary emboli without acute cor pulmonale; R41.3 Other amnesia

== ENCOUNTER 2022-09-24 06:08 | Observation (INO) | payer OTHER ==
[2022-09-24] VITALS (8 sets, daily range): BP systolic 99–144; BP diastolic 64–86
[~2022-09-24] VITALS: Ht 162.6 cm; Wt 83.4 kg
[~2022-09-24 06:08] MED LIST changes: -ACET1TAB55 PO; +ACETAMINOPHEN 500 MG TAB PO ONE; -AMOX875T2 PO; -COLA100C5 PO; +NAPROXEN 250 MG TAB PO ONE; +NS 1,000 ML IV ONE; -OXYC-517 PO; +PREGABALIN 25 MG CAP (LYRICA) PO ONE; +ROPIVA 125MG/EPINEPH 0.25MG/CLONID 40MCG/KETOR 15MG IN NS 50ML SYRINGE PA ONE; -SENN18TA PO; -VITMTA PO; +ceFAZolin SOD 2 GM in IV 1 EA IV ONE
[2022-09-24] MEDS ORDERED: LR 1,000 ML IV SCH ×2 (06:15→10:20)
[2022-09-24 06:55] LABS: HEMATOCRIT 51.2 % (42.0-52.0); HEMOGLOBIN 17.4 g/dl (13.5-17.5); MEAN CORPUSCULAR VOLUME 94.1 fl (80.0-96.0); PLATELET COUNT, AUTOMATED 240 10^3/uL (150-450); RED BLOOD COUNT 5.44 10^6/uL (4.30-6.10); WHITE BLOOD COUNT 7.8 10^3/uL (4.0-10.0)
[2022-09-24] MEDS ORDERED: propofoL 200 MG/20 ML VIAL As Ordered ONE ×3 (06:56→09:25)
[2022-09-24] MEDS ORDERED: ONDANSETRON 4MG 2ML VIAL As Ordered ONE (06:57)
[2022-09-24] MEDS ORDERED: LIDOCAINE 2% 100MG/5ML SDV (FOR ANES.) As Ordered ONE (06:57)
[2022-09-24] MEDS ORDERED: MIDAZOLAM INJ 2MG/2ML VIAL As Ordered ONE (07:04)
[2022-09-24] MEDS ORDERED: fentaNYL 100 MCG/2 ML INJECTION As Ordered ONE (07:04)
[2022-09-24 07:19] LABS: ALBUMIN 3.7 G/DL (3.2-5.2); ALKALINE PHOSPHATASE 71 U/L (46-116); ALT/SGPT 23 U/L (7.0-40); AST/SGOT 22 U/L (<34); BILIRUBIN,TOTAL 1.2 MG/DL (0.3-1.2); BLOOD UREA NITROGEN 21 MG/DL (9-23); CALCIUM LEVEL 8.8 MG/DL (8.3-10.6); CARBON DIOXIDE LEVEL 32 MMOL/L (20-31); CHLORIDE LEVEL 100 MMOL/L (98-107); CREATININE FOR GFR 0.79 MG/DL (0.70-1.30); GLOMERULAR FILTRATION RATE > 60.0 (>49); GLUCOSE, FASTING 98 MG/DL (74-106); SODIUM LEVEL 137 MMOL/L (136-145); TOTAL PROTEIN 6.8 G/DL (5.7-8.2)
[2022-09-24] MEDS ORDERED: TRANEXAMIC ACID 100 MG/ML 10ML VIAL As Ordered ONE ×2 (07:20→07:21)
[2022-09-24] MEDS ORDERED: VANCOMYCIN 1000MG/20ML VIAL As Ordered ONE ×2 (07:20→08:20)
[2022-09-24] MEDS ORDERED: ePHEDrine SULFATE 25 MG/5 ML(5MG/ML) SYRINGE As Ordered ONE ×2 (08:05→08:52)
[2022-09-24] MEDS ORDERED: FERROUS SULFATE 325MG TAB PO SCH (09:00)
[2022-09-24] MEDS ORDERED: ONDANSETRON 4MG 2ML VIAL IV PRN ×2 (10:20→10:25)
[2022-09-24] MEDS ORDERED: fentaNYL 100 MCG/2 ML INJECTION IV PRN (10:20)
[2022-09-24] MEDS ORDERED: oxyCODONE 5MG TAB PO PRN ×3 (10:20→10:25)
[2022-09-24] MEDS ORDERED: HYDROMORPHONE HCL 0.5 MG/ 0.5 ML SYRINGE IV PRN (10:20)
[2022-09-24] MEDS ORDERED: SENNA 8.6 MG TAB (SENOKOT) PO PRN (10:25)
[2022-09-24] MEDS: ACETAMINOPHEN TAB 650MG DOSE (2X325MG) PO SCH ×2 (14:05→20:06)
[2022-09-24] MEDS ORDERED: LOSA25TA13 PO (14:09)
[2022-09-24] MEDS ORDERED: ELIQ5TAB PO (14:09)
[2022-09-24] MEDS ORDERED: AMOX875T2 PO (14:09)
[2022-09-24] MEDS ORDERED: VITMTA PO (14:09)
[2022-09-24] MEDS ORDERED: HOME MED LIST COMPLETE! XX SCH (14:15)
[2022-09-24 14:36] LABS: INR 1.05; PROTHROMBIN TIME 13.9 SECONDS (12.5-14.5)
[2022-09-24] MEDS: LR 1,000 ML IV SCH ×2 (14:59→20:25)
[2022-09-24] MEDS: ceFAZolin SOD 2 GM in IV 1 EA IV SCH (16:53)
[2022-09-24] MEDS: DOCUSATE SODIUM 100MG CAPSULE PO SCH (20:06)
[2022-09-24] MEDS ORDERED: APIXABAN 5 MG TAB (ELIQUIS) PO SCH (21:00)
[2022-09-25] MEDS: ceFAZolin SOD 2 GM in IV 1 EA IV SCH (00:11)
[2022-09-25] MEDS: ACETAMINOPHEN TAB 650MG DOSE (2X325MG) PO SCH ×3 (00:12→13:00)
[2022-09-25 02:00] VITALS: BP 111/72
[2022-09-25 06:00] VITALS: BP 126/98
[2022-09-25 06:38] LABS: HEMATOCRIT 42.4 % (42.0-52.0); MEAN CORPUSCULAR HEMOGLOBIN 31.9 pg (27.0-33.0); MEAN CORPUSCULAR HGB CONC 34.4 g/dl (32.0-36.5); MEAN CORPUSCULAR VOLUME 92.8 fl (80.0-96.0); PLATELET COUNT, AUTOMATED 203 10^3/uL (150-450); RED BLOOD COUNT 4.57 10^6/uL (4.30-6.10); WHITE BLOOD COUNT 16.2 10^3/uL (4.0-10.0)
[2022-09-25 06:46] LABS: HEMOGLOBIN 14.6 g/dl (13.5-17.5)
[2022-09-25] MEDS: DOCUSATE SODIUM 100MG CAPSULE PO SCH (08:11)
[2022-09-25] MEDS ORDERED: APIXABAN 5 MG TAB (ELIQUIS) PO SCH (09:00)
[2022-09-25 10:00] VITALS: BP 108/67
[2022-09-25] MEDS ORDERED: SENN18TA PO (10:07)
[2022-09-25] MEDS ORDERED: OXYC-517 PO (10:07)
[2022-09-25] MEDS ORDERED: ACET1TAB55 PO (10:07)
[2022-09-25] MEDS ORDERED: COLA100C5 PO (10:07)
== END 2022-09-25 13:15 | disposition home health service (06) ==
LOC: M SDC 06:08 → M MS5PR 06:09
PROVIDERS: ADMIT Student in an Organized Health Care Education/Training Program; ATTEND Orthopaedic Surgery Adult Reconstructive Orthopaedic Surgery
DX: M17.12 Unilateral primary osteoarthritis, left knee (principal); I10 Essential (primary) hypertension; G43.909 Migraine, unspecified, not intractable, without status migrainosus; Z86.711 Personal history of pulmonary embolism; Z79.01 Long term (current) use of anticoagulants; F07.81 Postconcussional syndrome; Z79.899 Other long term (current) drug therapy; Z88.5 Allergy status to narcotic agent
CPT/HCPCS: 27447; 36415; 73560; 80053; 85027; 85610; 88307; 88311; 96365; 96366; 97116; 97162; 97165; C1776; G0378; J0690; J1100; J2250; J2405; J3010; S2900

== ENCOUNTER → 2022-10-07 | Outpatient (CLI) | payer OTHER ==
[~2022-10-07] MED LIST changes: +ACET1TAB55 PO; -ACETAMINOPHEN 500 MG TAB PO ONE; +AMOX875T2 PO; +COLA100C5 PO; -NAPROXEN 250 MG TAB PO ONE; -NS 1,000 ML IV ONE; +OXYC-517 PO; -PREGABALIN 25 MG CAP (LYRICA) PO ONE; -ROPIVA 125MG/EPINEPH 0.25MG/CLONID 40MCG/KETOR 15MG IN NS 50ML SYRINGE PA ONE; +SENN18TA PO; +VITMTA PO; -ceFAZolin SOD 2 GM in IV 1 EA IV ONE
== END ==
LOC: M SOG 12:25
PROVIDERS: ATTEND Physician Assistant
DX: M17.12 Unilateral primary osteoarthritis, left knee (principal); M24.562 Contracture, left knee; Z96.652 Presence of left artificial knee joint

== ENCOUNTER → 2022-10-22 | Outpatient (CLI) | payer OTHER ==
[~2022-10-22] MED LIST changes: +METHACHOLINE KIT INH ONE
== END ==
LOC: M CARPUL 13:04
PROVIDERS: ATTEND Internal Medicine Pulmonary Disease
DX: R05.3 Chronic cough (principal)
CPT/HCPCS: 94070; 95070; J7674

== ENCOUNTER 2023-05-19 09:00 | Outpatient (RCR) | payer OTHER ==
[~2023-05-19 09:00] MED LIST changes: -CEFD300C41 PO; +CEFD300C42 PO; -COZA1TAB PO; -K-TA10TA PO; +LOSA-527 PO; -METHACHOLINE KIT INH ONE; +POTA-164 PO; +SENN-111 PO; -SENN18TA PO
== END 2023-05-27 ==
LOC: M ST 09:00
PROVIDERS: ATTEND Student in an Organized Health Care Education/Training Program
DX: F07.81 Postconcussional syndrome (principal)

== ENCOUNTER → 2023-06-02 | Outpatient (CLI) | payer OTHER | LOC: M ADAMS 10:15 | PROVIDERS: ATTEND Student in an Organized Health Care Education/Training Program | DX: M54.40 Lumbago with sciatica, unspecified side (principal); M47.817 Spondylosis without myelopathy or radiculopathy, lumbosacral region ==

== ENCOUNTER → 2023-06-04 | Outpatient (CLI) | payer OTHER | LOC: M SOG 07:52 | PROVIDERS: ATTEND Orthopaedic Surgery | DX: M54.50 Low back pain, unspecified (principal); Z53.9 Procedure and treatment not carried out, unspecified reason ==

== ENCOUNTER → 2023-06-26 | Outpatient (RCR) | payer OTHER | LOC: M ST 06-05 09:05 | PROVIDERS: ATTEND Student in an Organized Health Care Education/Training Program | DX: F07.81 Postconcussional syndrome (principal) ==

== ENCOUNTER → 2023-07-04 | Outpatient (CLI) | payer OTHER ==
[~2023-07-04] MED LIST changes: +CEFD1CAP9 PO; -CEFD300C42 PO; +GASTROGRAFIN SOLUTION 30ML As Ordered ONE; +ISOVUE-370 76% 100ML VIAL As Ordered ONE
== END ==
LOC: M RAD 12:02
PROVIDERS: ATTEND Nurse Practitioner Family
DX: R10.9 Unspecified abdominal pain (principal); N20.0 Calculus of kidney; N40.0 Benign prostatic hyperplasia without lower urinary tract symptoms; K82.8 Other specified diseases of gallbladder
CPT/HCPCS: 74177; Q9963; Q9967

== ENCOUNTER 2023-07-24 11:02 | Outpatient (RCR) | payer OTHER ==
[~2023-07-24 11:02] MED LIST changes: -GASTROGRAFIN SOLUTION 30ML As Ordered ONE; -ISOVUE-370 76% 100ML VIAL As Ordered ONE
== END 2023-07-27 ==
LOC: M ST 11:02
PROVIDERS: ATTEND Student in an Organized Health Care Education/Training Program
DX: F07.81 Postconcussional syndrome (principal)

== ENCOUNTER 2023-08-20 11:03 | Outpatient (RCR) | payer OTHER | END 2023-08-27 | LOC: M ST 11:03 | PROVIDERS: ATTEND Student in an Organized Health Care Education/Training Program | DX: F07.81 Postconcussional syndrome (principal) ==

== ENCOUNTER 2023-08-28 11:11 | Outpatient (RCR) | payer OTHER | END 2023-09-25 | LOC: M ST 11:11 | PROVIDERS: ATTEND Student in an Organized Health Care Education/Training Program | DX: F07.81 Postconcussional syndrome (principal) ==

== ENCOUNTER → 2023-10-01 | Outpatient (REF) | payer OTHER, MEDICAID ==
[2023-10-01 14:41] LABS: BASO # 0.1 10^3/uL (0.0-0.2); BASO % 1.4 % (0.0-1.0); EOS # 0.9 10^3/uL (0.0-0.5); EOS % 14.2 % (0.0-3.0); HEMOGLOBIN 16.2 g/dl (13.5-17.5); LYMPH # 1.4 10^3/uL (1.5-5.0); LYMPH % 21.2 % (24.0-44.0); MEAN CORPUSCULAR HEMOGLOBIN 31.9 pg (27.0-33.0); MEAN CORPUSCULAR HGB CONC 33.8 g/dl (32.0-36.5); MEAN CORPUSCULAR VOLUME 94.5 fl (80.0-96.0); MONO # 0.7 10^3/uL (0.0-0.8); MONO % 10.5 % (2.0-8.0); NEUTROPHILS # 3.4 10^3/uL (1.5-8.5); NEUTROPHILS % 52.5 % (36.0-66.0); PLATELET COUNT, AUTOMATED 237 10^3/uL (150-450); RED BLOOD COUNT 5.08 10^6/uL (4.30-6.10); WHITE BLOOD COUNT 6.4 10^3/uL (4.0-10.0)
[2023-10-01 15:18] LABS: ALBUMIN 4.1 G/DL (3.2-5.2); ALKALINE PHOSPHATASE 76 U/L (46-116); ALT/SGPT 26 U/L (7.0-40); AST/SGOT 27 U/L (<34); BILIRUBIN,TOTAL 1.2 MG/DL (0.3-1.2); BLOOD UREA NITROGEN 14 MG/DL (9-23); CALCIUM LEVEL 8.7 MG/DL (8.3-10.6); CARBON DIOXIDE LEVEL 30 MMOL/L (20-31); CHLORIDE LEVEL 102 MMOL/L (98-107); CHOLESTEROL LEVEL 143 MG/DL (<200); CHOLESTEROL RISK RATIO 2.17 (<5); CREATININE FOR GFR 0.76 MG/DL (0.70-1.30); GLOMERULAR FILTRATION RATE > 60.0 (>49); GLUCOSE, FASTING 88 MG/DL (74-106); HDL CHOLESTEROL 65.7 MG/DL (>40); LDL CHOLESTEROL 66.3 MG/DL (<100); NON-HDL-C 77.3 MG/DL; POTASSIUM SERUM 4.2 MMOL/L (3.5-5.1); SODIUM LEVEL 138 MMOL/L (136-145); TOTAL PROTEIN 7.6 G/DL (5.7-8.2); TRIGLYCERIDES LEVEL 55 MG/DL (<150)
[2023-10-01 15:20] LABS: TOTAL 25(OH) VITAMIN D 41.1 NG/ML (20.0-100.0)
[2023-10-01 15:21] LABS: FREE T4 1.23 NG/DL (0.89-1.76)
== END ==
LOC: M LABDRWAD 13:10
PROVIDERS: ATTEND Physician Assistant
DX: Z01.818 Encounter for other preprocedural examination (principal); I10 Essential (primary) hypertension

== ENCOUNTER → 2023-10-03 | Outpatient (CLI) | payer OTHER, MEDICAID | LOC: M RAD 08:22 | PROVIDERS: ATTEND Physician Assistant | DX: Z01.818 Encounter for other preprocedural examination (principal) ==

== ENCOUNTER → 2023-10-13 | Outpatient (REF) | payer OTHER ==
[~2023-10-13] MED LIST changes: +AMIT25TA19 PO; +AZEL1SPR3; +LOSA50TA28 PO; +MONT10TA97 PO
[2023-10-13 12:57] LABS: APPEARANCE, URINE CLEAR (CLEAR); BACTERIA, URINE AUTO NEGATIVE (NEGATIVE); BILIRUBIN, URINE AUTO NEGATIVE (NEGATIVE); BLOOD, URINE BLOOD NEGATIVE (NEGATIVE); COLOR, URINE YELLOW (YELLOW); GLUCOSE, URINE (UA) AUTO NEGATIVE (NEGATIVE); KETONE, URINE AUTO NEGATIVE (NEGATIVE); LEUKOCYTE ESTERASE, URINE AUTO NEGATIVE (NEGATIVE); NITRITE, URINE AUTO NEGATIVE (NEGATIVE); PROTEIN, URINE AUTO 1+ mg/dL (NEGATIVE); RBC, URINE AUTO 0 /HPF (0-3); SQUAMOUS EPITHELIAL CELL UR AU 0 /HPF (0-6); UROBILINOGEN, URINE AUTO 0.2 mg/dL (0.0-2.0); WBC, URINE AUTO 0 /HPF (0-3)
== END ==
LOC: M SMT 12:22
PROVIDERS: ATTEND Nurse Practitioner Family
DX: Z01.818 Encounter for other preprocedural examination (principal); N20.0 Calculus of kidney

== ENCOUNTER 2023-10-15 12:39 | Outpatient (RCR) | payer OTHER ==
[2023-10-16] MEDS ORDERED: PERCOCET PO (10:08)
== END 2023-10-26 ==
LOC: M ST 12:39
PROVIDERS: ATTEND Student in an Organized Health Care Education/Training Program
DX: F07.81 Postconcussional syndrome (principal)

== ENCOUNTER 2023-10-16 07:52 | Day surgery (SDC) | payer OTHER ==
[~2023-10-16] VITALS: Ht 167.6 cm; Wt 87.3 kg
[~2023-10-16 07:52] MED LIST changes: -PERCOCET PO
[2023-10-16] MEDS: LR 1,000 ML IV SCH (08:45)
[2023-10-16] MEDS ORDERED: ONDANSETRON 4MG 2ML VIAL As Ordered ONE (09:03)
[2023-10-16] MEDS ORDERED: MIDAZOLAM INJ 2MG/2ML VIAL As Ordered ONE (09:03)
[2023-10-16] MEDS ORDERED: LIDOCAINE 2% 100MG/5ML SDV (FOR ANES.) As Ordered ONE (09:03)
[2023-10-16] MEDS ORDERED: fentaNYL 100 MCG/2 ML INJECTION As Ordered ONE (09:03)
[2023-10-16] MEDS ORDERED: dexmedeTOMIDine (4MCG/ML)200MCG/50ML BTL (PRECEDEX) As Ordered ONE (09:03)
[2023-10-16] MEDS ORDERED: propofoL 200 MG/20 ML VIAL As Ordered ONE (09:03)
[2023-10-16] MEDS: ceFAZolin SOD 2 GM in IV 1 EA IV ONE (09:33)
[2023-10-16] MEDS ORDERED: ACETAMINOPHEN 1000MG 100ML IV BAG As Ordered ONE (09:40)
[2023-10-16] MEDS ORDERED: ePHEDrine SULFATE 25 MG/5 ML(5MG/ML) SYRINGE As Ordered ONE (09:55)
[2023-10-16] MEDS ORDERED: PERCOCET PO (10:08)
[2023-10-16 10:38] VITALS: BP 128/73; TEMP 97.5; O2SAT 98
== END 2023-10-16 10:48 | disposition home or self-care (01) ==
LOC: M SDC 07:52
PROVIDERS: ATTEND Urology
DX: N20.0 Calculus of kidney (principal); I10 Essential (primary) hypertension; I71.40 Abdominal aortic aneurysm, without rupture, unspecified; J44.9 Chronic obstructive pulmonary disease, unspecified; E78.00 Pure hypercholesterolemia, unspecified; Z79.899 Other long term (current) drug therapy; Z86.711 Personal history of pulmonary embolism; Z88.5 Allergy status to narcotic agent; Z87.19 Personal history of other diseases of the digestive system
CPT/HCPCS: 50590; 74018; J0131; J0690; J2250; J2405; J3010

== ENCOUNTER → 2023-10-16 | Outpatient (CLI) | payer OTHER ==
[~2023-10-16] MED LIST changes: +PERCOCET PO
== END ==
LOC: M RAD 07:34
PROVIDERS: ATTEND Urology
DX: N20.0 Calculus of kidney (principal); Z53.9 Procedure and treatment not carried out, unspecified reason

== ENCOUNTER 2023-11-05 10:25 | Outpatient (RCR) | payer OTHER ==
[~2023-11-05 10:25] MED LIST changes: +PERCOCET PO
== END 2023-11-25 ==
LOC: M ST 10:25
PROVIDERS: ATTEND Student in an Organized Health Care Education/Training Program
DX: F07.81 Postconcussional syndrome (principal)

== ENCOUNTER → 2023-11-19 | Outpatient (CLI) | payer OTHER | LOC: M RAD 14:21 | PROVIDERS: ATTEND Physician Assistant | DX: R51.9 Headache, unspecified (principal); J34.1 Cyst and mucocele of nose and nasal sinus; J32.2 Chronic ethmoidal sinusitis ==

== ENCOUNTER 2023-11-27 09:28 | Outpatient (RCR) | payer OTHER ==
[~2023-11-27 09:28] MED LIST changes: +RAMI10CA64 PO; -RAMI1CAP26 PO
== END 2023-12-26 ==
LOC: M ST 09:28
PROVIDERS: ATTEND Student in an Organized Health Care Education/Training Program
DX: F07.81 Postconcussional syndrome (principal)

== ENCOUNTER 2024-01-13 09:01 | Outpatient (RCR) | payer OTHER | END 2024-01-25 | LOC: M ST 09:01 | PROVIDERS: ATTEND Student in an Organized Health Care Education/Training Program | DX: F07.81 Postconcussional syndrome (principal) ==

== ENCOUNTER 2024-02-11 12:36 | Emergency (ER) | payer OTHER ==
[~2024-02-11] VITALS: Ht 162.6 cm; Wt 84.6 kg
[2024-02-11] MEDS ORDERED: KETO10TAB (12:50)
[2024-02-11] MEDS: ONDANSETRON 4MG 2ML VIAL IV ONE (12:55)
[2024-02-11] MEDS: MORPHINE 4 MG/ML 1ML VIAL IV ONE (13:02)
[2024-02-11 13:11] LABS: BASO # 0.1 10^3/uL (0.0-0.2); BASO % 0.5 % (0.0-1.0); EOS % 0.3 % (0.0-3.0); HEMATOCRIT 45.7 % (42.0-52.0); HEMOGLOBIN 16.3 g/dl (13.5-17.5); LYMPH % 7.5 % (24.0-44.0); MEAN CORPUSCULAR HEMOGLOBIN 32.2 pg (27.0-33.0); MEAN CORPUSCULAR HGB CONC 35.7 g/dl (32.0-36.5); MEAN CORPUSCULAR VOLUME 90.3 fl (80.0-96.0); MONO # 0.5 10^3/uL (0.0-0.8); MONO % 3.6 % (2.0-8.0); NEUTROPHILS # 11.4 10^3/uL (1.5-8.5); NEUTROPHILS % 87.8 % (36.0-66.0); PLATELET COUNT, AUTOMATED 221 10^3/uL (150-450); RED BLOOD COUNT 5.06 10^6/uL (4.30-6.10)
[2024-02-11 13:38] LABS: CK-MB VALUE MASS 2.5 NG/ML (<3.6)
[2024-02-11 13:40] LABS: ALBUMIN 4.1 G/DL (3.2-5.2); ALKALINE PHOSPHATASE 85 U/L (46-116); ALT/SGPT 31 U/L (7.0-40); AST/SGOT 31 U/L (<34); BILIRUBIN,TOTAL 1.5 MG/DL (0.3-1.2); BLOOD UREA NITROGEN 15 MG/DL (9-23); CALCIUM LEVEL 9.2 MG/DL (8.3-10.6); CARBON DIOXIDE LEVEL 22 MMOL/L (20-31); CHLORIDE LEVEL 101 MMOL/L (98-107); CREATININE FOR GFR 0.74 MG/DL (0.70-1.30); GLOMERULAR FILTRATION RATE > 60.0 (>49); GLUCOSE, FASTING 167 MG/DL (74-106); POTASSIUM SERUM 3.6 MMOL/L (3.5-5.1); SODIUM LEVEL 135 MMOL/L (136-145); TOTAL PROTEIN 7.5 G/DL (5.7-8.2)
[2024-02-11 13:52] LABS: LIPASE 33 U/L (12-53); THYROID STIMULATING HORMONE 2.686 uIU/ML (0.55-4.78); THYROXINE (T4) 8.9 UG/DL (4.5-10.9)
[2024-02-11 14:01] LABS: CPK CREATINE PHOSPHOKINASE 200 U/L (46-171); MB/CK RELATIVE INDEX 1.25 (< OR =4)
[2024-02-11] MEDS: NS 1,000 ML IV ONE (14:06)
[2024-02-11 14:18] LABS: INR 1.02; PARTIAL THROMBOPLASTIN TIME 24.9 SECONDS (24.8-34.2); PROTHROMBIN TIME 13.1 SECONDS (12.5-14.5)
[2024-02-11] MEDS ORDERED: ISOVUE-370 76% 100ML VIAL As Ordered ONE (14:31)
[2024-02-11] MEDS: METOCLOPRAMIDE INJ 10MG/2ML VIAL IV ONE (14:56)
[2024-02-11] MEDS: MORPHINE 2 MG/ML 1ML VIAL IV ONE (14:57)
[2024-02-11 15:14] LABS: MONO REFLEX EBV COMP NEGATIVE (NEGATIVE)
[2024-02-11 15:33] LABS: CK-MB VALUE MASS 2.6 NG/ML (<3.6)
[2024-02-11 15:34] LABS: MB/CK RELATIVE INDEX 1.37 (< OR =4)
[2024-02-11 16:25] LABS: FREE THYROXINE INDEX 3.4 % (1.4-3.8); T UPTAKE 37.7 % (22.5-37.0)
[2024-02-11] MEDS: KETOROLAC 30 MG/ML 1ML VIAL IV ONE (17:13)
[2024-02-11] MEDS ORDERED: ONDA-282 PO (18:50)
[2024-02-11 18:56] VITALS: BP 164/86; TEMP 97.2; O2SAT 97
[2024-02-16 14:12] LABS: LYME TOTAL ANTIBODY CIA <= 0.90 Index (<=0.90)
[2024-02-16 15:08] LABS: EBV VIRAL CAPSID AG IGM < 36.00 U/mL (<36.00)
== END 2024-02-11 18:59 | disposition home or self-care (01) ==
LOC: M ED 12:36 → EDBD 12:36 → M ED 18:59
DX: K52.9 Noninfective gastroenteritis and colitis, unspecified (principal); I10 Essential (primary) hypertension; E78.5 Hyperlipidemia, unspecified; K44.9 Diaphragmatic hernia without obstruction or gangrene; F41.9 Anxiety disorder, unspecified; Z79.52 Long term (current) use of systemic steroids; Z79.83 Long term (current) use of bisphosphonates; Z79.811 Long term (current) use of aromatase inhibitors; Z79.899 Other long term (current) drug therapy; Z88.5 Allergy status to narcotic agent
CPT/HCPCS: 71275; 74174; 80053; 81001; 82550; 82553; 83690; 84436; 84443; 84479; 84484; 85025; 85610; 85730; 86308; 86618; 86664; 86665; 87486; 87581; 87633; 87798; 93005; 96361; 96374; 96375; 96376; 99284; J1885; J2405; J2765; Q9967

== ENCOUNTER 2024-04-20 07:32 | Inpatient (IN) | payer MEDICAID, OTHER ==
[~2024-04-20] VITALS: Ht 162.6 cm; Wt 79.4 kg
[~2024-04-20 07:32] MED LIST changes: +KETO10TAB; +ONDA-282 PO
[2024-04-20] MEDS: NS 1,000 ML IV ONE (08:59)
[2024-04-20] MEDS: ONDANSETRON 4MG 2ML VIAL IV ONE (08:59)
[2024-04-20 09:29] LABS: APPEARANCE, URINE HAZY (CLEAR); BACTERIA, URINE AUTO NEGATIVE (NEGATIVE); BASO % 0.1 % (0.0-1.0); BILIRUBIN, URINE AUTO NEGATIVE (NEGATIVE); BLOOD, URINE BLOOD 1+ (NEGATIVE); COLOR, URINE YELLOW (YELLOW); EOS % 0.1 % (0.0-3.0); GLUCOSE, URINE (UA) AUTO 3+ mg/dL (NEGATIVE); HEMATOCRIT 51.9 % (42.0-52.0); HEMOGLOBIN 18.8 g/dl (13.5-17.5); KETONE, URINE AUTO 1+ mg/dL (NEGATIVE); LEUKOCYTE ESTERASE, URINE AUTO NEGATIVE (NEGATIVE); LYMPH # 0.7 10^3/uL (1.5-5.0); LYMPH % 5.8 % (24.0-44.0); MEAN CORPUSCULAR HEMOGLOBIN 32.6 pg (27.0-33.0); MEAN CORPUSCULAR HGB CONC 36.2 g/dl (32.0-36.5); MEAN CORPUSCULAR VOLUME 90.1 fl (80.0-96.0); MONO # 0.9 10^3/uL (0.0-0.8); MONO % 7.5 % (2.0-8.0); MUCUS, URINE SMALL (NEGATIVE); NEUTROPHILS # 10.6 10^3/uL (1.5-8.5); NEUTROPHILS % 86.2 % (36.0-66.0); NITRITE, URINE AUTO NEGATIVE (NEGATIVE); PLATELET COUNT, AUTOMATED 251 10^3/uL (150-450); PROTEIN, URINE AUTO 3+ mg/dL (NEGATIVE); RBC, URINE AUTO 19 /HPF (0-3); RED BLOOD COUNT 5.76 10^6/uL (4.30-6.10); SPECIFIC GRAVITY URINE AUTO 1.022 (1.002-1.035); SQUAMOUS EPITHELIAL CELL UR AU 0 /HPF (0-6); UROBILINOGEN, URINE AUTO 0.2 mg/dL (0.0-2.0); WBC, URINE AUTO 2 /HPF (0-3); WHITE BLOOD COUNT 12.3 10^3/uL (4.0-10.0)
[2024-04-20] MEDS ORDERED: ISOVUE-370 76% 100ML VIAL As Ordered ONE (09:29)
[2024-04-20] MEDS: LABETALOL 100MG/20ML VIAL IV STA ×2 (09:34→12:07)
[2024-04-20 09:42] LABS: HEMOGLOBIN A1c 5.4 % (4.0-6.0)
[2024-04-20 09:56] LABS: ACETONE/KETONE 0.4 MMOL/L (0.02-0.27); CK-MB VALUE MASS 5.3 NG/ML (<3.6)
[2024-04-20 10:07] LABS: MB/CK RELATIVE INDEX 1.18 (< OR =4)
[2024-04-20] MEDS: LIDOCAINE 5% (LIDODERM) PATCH TD ONE (11:01)
[2024-04-20] MEDS: ACETAMINOPHEN 325 MG TAB PO ONE (11:01)
[2024-04-20 11:47] LABS: CK-MB VALUE MASS 3.6 NG/ML (<3.6)
[2024-04-20 12:01] LABS: CPK CREATINE PHOSPHOKINASE 349 U/L (46-171); MB/CK RELATIVE INDEX 1.03 (< OR =4)
[2024-04-20 14:01] LABS: ALBUMIN 3.6 G/DL (3.2-5.2); ALKALINE PHOSPHATASE 78 U/L (46-116); ALT/SGPT 28 U/L (7.0-40); AST/SGOT 30 U/L (<34); BILIRUBIN,TOTAL 1.1 MG/DL (0.3-1.2); BLOOD UREA NITROGEN 16 MG/DL (9-23); CALCIUM LEVEL 8.5 MG/DL (8.3-10.6); CARBON DIOXIDE LEVEL 24 MMOL/L (20-31); CHLORIDE LEVEL 101 MMOL/L (98-107); CREATININE FOR GFR 0.66 MG/DL (0.70-1.30); GLOMERULAR FILTRATION RATE > 60.0 (>49); GLUCOSE, FASTING 113 MG/DL (74-106); POTASSIUM SERUM 3.5 MMOL/L (3.5-5.1); SODIUM LEVEL 133 MMOL/L (136-145); TOTAL PROTEIN 7.3 G/DL (5.7-8.2)
[2024-04-20 14:44] LABS: CREATININE,RANDOM URINE 172.8 MG/DL
[2024-04-20] MEDS ORDERED: AZEL1SPR3 NARES (14:44)
[2024-04-20] MEDS ORDERED: MULT-40 PO (14:44)
[2024-04-20] MEDS ORDERED: HOME MED LIST COMPLETE! XX SCH (14:45)
[2024-04-20 14:52] LABS: TOTAL PROTEIN,RANDOM URINE 344.8 MG/DL (0.0-14.0)
[2024-04-20] MEDS: LIDOCAINE 5% (LIDODERM) PATCH TD SCH (16:50)
[2024-04-20] MEDS: MORPHINE 4 MG/ML 1ML VIAL IV ONE (16:56)
[2024-04-20 17:46] LABS: CHOLESTEROL LEVEL 146 MG/DL (<200); CHOLESTEROL RISK RATIO 1.94 (<5); COMPLEMENT C3 161.2 MG/DL (90.0-170.0); COMPLEMENT C4 41.8 MG/DL (12-36); IMMUNOGLOBULIN A 528.9 MG/DL (40-350); IMMUNOGLOBULIN G 1282 MG/DL (650-1600); TRIGLYCERIDES LEVEL 55 MG/DL (<150)
[2024-04-20 18:07] LABS: HEPATITIS B SURFACE ANTIGEN NEGATIVE (NEGATIVE)
[2024-04-20 18:19] LABS: HIV 1&2 SCREEN NEGATIVE (NEGATIVE)
[2024-04-20 18:26] LABS: HEPATITIS C VIRUS ABY INDEX 0.02 INDEX (<0.8)
[2024-04-20 18:27] LABS: HEPATITIS B CORE ANTIBODY IGM NEGATIVE (NEGATIVE)
[2024-04-20] MEDS: LOSARTAN 50MG TABLET PO ONE (18:44)
[2024-04-20 21:00] VITALS: BP 153/92; TEMP 97.8; O2SAT 98
[2024-04-20] MEDS: AMITRIPTYLINE 25MG TABLET PO SCH (21:53)
[2024-04-20] MEDS: **hydrALAZINE HCL** 25 MG TAB PO SCH (21:53)
[2024-04-20] MEDS: ACETAMINOPHEN TAB 650MG DOSE (2X325MG) PO PRN (21:54)
[2024-04-20 23:28] VITALS: BP 108/80; TEMP 97.5; O2SAT 95
[2024-04-21] VITALS (10 sets, daily range): BP systolic 101–178; BP diastolic 59–101; TEMP 97.3–99.4; O2SAT 92–96
[2024-04-21] MEDS: ONDANSETRON 4MG 2ML VIAL IV ONE (05:12)
[2024-04-21 06:10] LABS: BASO % 0.2 % (0.0-1.0); EOS % 0.1 % (0.0-3.0); HEMATOCRIT 48.8 % (42.0-52.0); HEMOGLOBIN 17.5 g/dl (13.5-17.5); LYMPH # 1.1 10^3/uL (1.5-5.0); LYMPH % 10.2 % (24.0-44.0); MEAN CORPUSCULAR HEMOGLOBIN 32.3 pg (27.0-33.0); MEAN CORPUSCULAR HGB CONC 35.9 g/dl (32.0-36.5); MONO # 1.2 10^3/uL (0.0-0.8); MONO % 11.3 % (2.0-8.0); NEUTROPHILS # 8.1 10^3/uL (1.5-8.5); PLATELET COUNT, AUTOMATED 255 10^3/uL (150-450); RED BLOOD COUNT 5.42 10^6/uL (4.30-6.10); WHITE BLOOD COUNT 10.4 10^3/uL (4.0-10.0)
[2024-04-21 06:47] LABS: BILIRUBIN,TOTAL 1.4 MG/DL (0.3-1.2); CALCIUM LEVEL 9.3 MG/DL (8.3-10.6); CREATININE FOR GFR 1.33 MG/DL (0.70-1.30); MAGNESIUM LEVEL 2.1 MG/DL (1.8-2.4); POTASSIUM SERUM 3.8 MMOL/L (3.5-5.1); TOTAL PROTEIN 7.7 G/DL (5.7-8.2)
[2024-04-21] MEDS ORDERED: FLUBLOK(EGGFREE) TRIVAL(24-25) VACCINE PF 0.5ML SYRINGE 18YRS & OLDER IM.IMMUN ONE (09:00)
[2024-04-21] MEDS ORDERED: LOSARTAN 50MG TABLET PO SCH (09:00)
[2024-04-21] MEDS: PANTOPRAZOLE 40MG TAB (PROTONIX) PO SCH (09:51)
[2024-04-21] MEDS: LR 1,000 ML IV SCH (10:36)
[2024-04-21] MEDS: DICLOFENAC EPOLAMINE 1.3% PATCH TOP SCH (10:36)
[2024-04-21] MEDS: ACETAMINOPHEN TAB 650MG DOSE (2X325MG) PO SCH (12:10)
[2024-04-21] MEDS: CYCLOBENZAPRINE 5MG TABLET PO SCH (15:02)
[2024-04-21] MEDS: GABAPENTIN 100 MG CAP PO SCH (21:01)
[2024-04-22] VITALS (8 sets, daily range): BP systolic 96–171; BP diastolic 63–112; TEMP 97.3–99.2; O2SAT 94–98
[2024-04-22 06:01] LABS: BASO % 0.4 % (0.0-1.0); EOS % 0.1 % (0.0-3.0); HEMATOCRIT 47.1 % (42.0-52.0); HEMOGLOBIN 16.5 g/dl (13.5-17.5); LYMPH % 10.1 % (24.0-44.0); MEAN CORPUSCULAR HEMOGLOBIN 32.3 pg (27.0-33.0); MEAN CORPUSCULAR VOLUME 92.2 fl (80.0-96.0); MONO % 10.3 % (2.0-8.0); NEUTROPHILS # 7.4 10^3/uL (1.5-8.5); NEUTROPHILS % 78.7 % (36.0-66.0); PLATELET COUNT, AUTOMATED 242 10^3/uL (150-450); RED BLOOD COUNT 5.11 10^6/uL (4.30-6.10); WHITE BLOOD COUNT 9.4 10^3/uL (4.0-10.0)
[2024-04-22 06:23] LABS: BLOOD UREA NITROGEN 26 MG/DL (9-23); CARBON DIOXIDE LEVEL 29 MMOL/L (20-31); CHLORIDE LEVEL 100 MMOL/L (98-107); CREATININE FOR GFR 0.91 MG/DL (0.70-1.30); GLOMERULAR FILTRATION RATE > 60.0 (>49); GLUCOSE, FASTING 112 MG/DL (74-106); MAGNESIUM LEVEL 2.1 MG/DL (1.8-2.4); SODIUM LEVEL 132 MMOL/L (136-145)
[2024-04-22] MEDS: FLUBLOK(EGGFREE) TRIVAL(24-25) VACCINE PF 0.5ML SYRINGE 18YRS & OLDER IM.IMMUN ONE (08:40)
[2024-04-22 17:02] LABS: PROTEIN CREATININE RATIO 2270 mg/g creat (25-148); UPEP CREATININE 163 mg/dL (20-320)
[2024-04-22] MEDS: ONDANSETRON 4MG ORAL DISINTEGRATING TAB SL PRN (19:01)
[2024-04-23 03:10] VITALS: BP 144/82; TEMP 97.7; O2SAT 97
[2024-04-23 04:00] VITALS: BP 144/82; TEMP 97.7; O2SAT 97
[2024-04-23 06:17] LABS: BASO # 0.1 10^3/uL (0.0-0.2); BASO % 0.6 % (0.0-1.0); EOS # 0.1 10^3/uL (0.0-0.5); EOS % 0.6 % (0.0-3.0); HEMATOCRIT 48.7 % (42.0-52.0); HEMOGLOBIN 16.8 g/dl (13.5-17.5); LYMPH # 0.8 10^3/uL (1.5-5.0); LYMPH % 10.1 % (24.0-44.0); MEAN CORPUSCULAR HEMOGLOBIN 32.3 pg (27.0-33.0); MEAN CORPUSCULAR HGB CONC 34.5 g/dl (32.0-36.5); MEAN CORPUSCULAR VOLUME 93.7 fl (80.0-96.0); MONO # 0.8 10^3/uL (0.0-0.8); MONO % 10.1 % (2.0-8.0); NEUTROPHILS # 6.4 10^3/uL (1.5-8.5); NEUTROPHILS % 78.4 % (36.0-66.0); PLATELET COUNT, AUTOMATED 236 10^3/uL (150-450); WHITE BLOOD COUNT 8.1 10^3/uL (4.0-10.0)
[2024-04-23 06:37] LABS: BLOOD UREA NITROGEN 21 MG/DL (9-23); CALCIUM LEVEL 9.2 MG/DL (8.3-10.6); CARBON DIOXIDE LEVEL 30 MMOL/L (20-31); CHLORIDE LEVEL 101 MMOL/L (98-107); GLOMERULAR FILTRATION RATE > 60.0 (>49); GLUCOSE, FASTING 105 MG/DL (74-106); MAGNESIUM LEVEL 2.1 MG/DL (1.8-2.4); POTASSIUM SERUM 3.8 MMOL/L (3.5-5.1); SODIUM LEVEL 135 MMOL/L (136-145)
[2024-04-23 08:17] VITALS: BP 118/84; TEMP 97.7; O2SAT 98
[2024-04-23] MEDS ORDERED: ONDA-282 SL (11:41)
[2024-04-23] MEDS ORDERED: LOSA100T46 PO (11:41)
[2024-04-23] MEDS ORDERED: DICL1PAT6 TOP (11:41)
[2024-04-23] MEDS ORDERED: CYCL5TAB PO (11:41)
[2024-04-23] MEDS ORDERED: LIDO5TD TD (11:41)
[2024-04-23 11:56] LABS: ANA SCREEN, IFA NEGATIVE (NEGATIVE)
[2024-04-23 11:57] VITALS: BP 139/95; TEMP 98.3; O2SAT 98
[2024-04-23 14:03] LABS: FREE KAPPA LIGHT CHAINS SERUM 17.7 mg/L (3.3-19.4); FREE LAMBDA LIGHT CHAINS SERUM 17.7 mg/L (5.7-26.3)
[2024-04-26 07:31] LABS: UPEP ALBUMIN 82 %; UPEP TOTAL PROTEIN 370 mg/dL (5-25); URINE ALPHA 1 GLOBULIN 3 %; URINE ALPHA 2 GLOBULIN 4 %; URINE BETA GLOBULIN 6 %; URINE GAMMA GLOBULIN 5 %
[2024-04-26 15:01] LABS: ANTI-GLOMERULAR BASEMENT MEMB < 1.0 AI (<1.0)
[2024-04-26 16:57] LABS: METANEPHRINE PLASMA 42 pg/mL (<=57); NORMETANEPHRINE PLASMA 165 pg/mL (<=148); TOTAL FREE 207 pg/mL (<=205)
[2024-04-27 00:28] LABS: ANCA SCREEN Negative (Negative)
== END 2024-04-23 13:45 | disposition home or self-care (01) | DRG 199 ==
LOC: M ED 07:32 → M ED INP 16:18 → M PCU 21:01 → OBSVTOIN 04-21 13:21
PROVIDERS: ADMIT Student in an Organized Health Care Education/Training Program; ATTEND Student in an Organized Health Care Education/Training Program
DX: I16.0 Hypertensive urgency (principal); N17.9 Acute kidney failure, unspecified; K21.9 Gastro-esophageal reflux disease without esophagitis; R80.9 Proteinuria, unspecified; F41.9 Anxiety disorder, unspecified; F32.A Depression, unspecified; M54.59 Other low back pain; K57.90 Diverticulosis of intestine, part unspecified, without perforation or abscess without bleeding; K44.9 Diaphragmatic hernia without obstruction or gangrene; Z88.5 Allergy status to narcotic agent; Z79.899 Other long term (current) drug therapy; Z96.652 Presence of left artificial knee joint; I10 Essential (primary) hypertension

== ENCOUNTER → 2024-06-02 | Outpatient (REF) | payer OTHER, MEDICAID ==
[~2024-06-02] MED LIST changes: +AZEL1SPR3 NARES; +CYCL5TAB4 PO; +DICL1PAT6 TOP; +LIDO5TD TD; +LOSA100T46 PO; +MULT-40 PO; +ONDA-282 SL; -SENN-111 PO; +SENN-165 PO
[2024-06-02 13:28] LABS: APPEARANCE, URINE CLEAR (CLEAR); BACTERIA, URINE AUTO NEGATIVE (NEGATIVE); BILIRUBIN, URINE AUTO NEGATIVE (NEGATIVE); BLOOD, URINE BLOOD NEGATIVE (NEGATIVE); COLOR, URINE YELLOW (YELLOW); GLUCOSE, URINE (UA) AUTO NEGATIVE (NEGATIVE); KETONE, URINE AUTO NEGATIVE (NEGATIVE); LEUKOCYTE ESTERASE, URINE AUTO NEGATIVE (NEGATIVE); NITRITE, URINE AUTO NEGATIVE (NEGATIVE); PROTEIN, URINE AUTO NEGATIVE (NEGATIVE); RBC, URINE AUTO 1 /HPF (0-3); SQUAMOUS EPITHELIAL CELL UR AU 0 /HPF (0-6); UROBILINOGEN, URINE AUTO 0.2 mg/dL (0.0-2.0); WBC, URINE AUTO 0 /HPF (0-3)
[2024-06-02 13:53] LABS: BASO # 0.1 10^3/uL (0.0-0.2); BASO % 1.3 % (0.0-1.0); EOS # 0.8 10^3/uL (0.0-0.5); EOS % 8.9 % (0.0-3.0); HEMATOCRIT 43.6 % (42.0-52.0); HEMOGLOBIN 14.9 g/dl (13.5-17.5); LYMPH # 1.4 10^3/uL (1.5-5.0); LYMPH % 15.9 % (24.0-44.0); MEAN CORPUSCULAR HEMOGLOBIN 32.8 pg (27.0-33.0); MEAN CORPUSCULAR HGB CONC 34.2 g/dl (32.0-36.5); MONO # 0.9 10^3/uL (0.0-0.8); MONO % 9.5 % (2.0-8.0); NEUTROPHILS # 5.8 10^3/uL (1.5-8.5); NEUTROPHILS % 64.2 % (36.0-66.0); PLATELET COUNT, AUTOMATED 276 10^3/uL (150-450); RED BLOOD COUNT 4.54 10^6/uL (4.30-6.10); WHITE BLOOD COUNT 9.1 10^3/uL (4.0-10.0)
[2024-06-02 14:21] LABS: CREATININE, URINE 48.1 MG/DL; MALB URINE SIEMENS < 3.0 MG/L; MAU/CREAT RATIO 6.2 MCG/MG (0.0-30.0)
[2024-06-02 14:39] LABS: PSA SCREENING 0.76 NG/ML (< 4.00)
[2024-06-02 14:41] LABS: ALBUMIN 3.7 G/DL (3.2-5.2); ALKALINE PHOSPHATASE 96 U/L (40-129); ALT/SGPT 47 U/L (7.0-40); AST/SGOT 26 U/L (<34); BLOOD UREA NITROGEN 12 MG/DL (9-23); CALCIUM LEVEL 9.4 MG/DL (8.3-10.6); CARBON DIOXIDE LEVEL 27 MMOL/L (20-31); CHLORIDE LEVEL 103 MMOL/L (98-107); CREATININE FOR GFR 0.72 MG/DL (0.70-1.30); GLOMERULAR FILTRATION RATE > 60.0 (>49); GLUCOSE, FASTING 95 MG/DL (74-106); POTASSIUM SERUM 4.3 MMOL/L (3.5-5.1); SODIUM LEVEL 138 MMOL/L (136-145)
== END ==
LOC: M SFHCPLAZ 07:26
PROVIDERS: ATTEND Physician Assistant
DX: R80.9 Proteinuria, unspecified (principal); I10 Essential (primary) hypertension; Z12.5 Encounter for screening for malignant neoplasm of prostate

== ENCOUNTER → 2024-07-27 | Outpatient (CLI) | payer OTHER | LOC: M RAD 13:13 | PROVIDERS: ATTEND Otolaryngology | DX: J32.0 Chronic maxillary sinusitis (principal); J34.89 Other specified disorders of nose and nasal sinuses ==

== ENCOUNTER → 2024-09-16 | Outpatient (REF) | payer OTHER, MEDICAID | LOC: M SFHCPLAZ 12:26 | PROVIDERS: ATTEND Nurse Practitioner Family | DX: R05.1 Acute cough (principal); J02.9 Acute pharyngitis, unspecified ==

== ENCOUNTER 2024-09-27 10:58 | Day surgery (SDC) | payer OTHER ==
[~2024-09-27] VITALS: Ht 162.6 cm; Wt 88.6 kg
[~2024-09-27 10:58] MED LIST changes: +AMIT50TA PO; +ASPI81TA26 PO; +ATOR80TA59 PO
[2024-09-27] MEDS: LR 1,000 ML IV SCH (12:22)
[2024-09-27] MEDS ORDERED: ONDANSETRON 4MG 2ML VIAL As Ordered ONE (13:02)
[2024-09-27] MEDS ORDERED: SUGAMMADEX SODIUM 500 MG/5 ML VIAL (BRIDION) As Ordered ONE (13:02)
[2024-09-27] MEDS ORDERED: LIDOCAINE 2% 100MG/5ML SDV (FOR ANES.) As Ordered ONE (13:02)
[2024-09-27] MEDS ORDERED: propofoL 200 MG/20 ML VIAL As Ordered ONE (13:02)
[2024-09-27] MEDS ORDERED: ROCURONIUM BROMIDE 50MG/5ML VIAL As Ordered ONE (13:03)
[2024-09-27] MEDS ORDERED: MIDAZOLAM INJ 2MG/2ML VIAL As Ordered ONE (13:06)
[2024-09-27] MEDS ORDERED: fentaNYL 100 MCG/2 ML INJECTION As Ordered ONE (13:06)
[2024-09-27] MEDS ORDERED: ACETAMINOPHEN 1000MG/100ML IV BAG As Ordered ONE (13:39)
[2024-09-27] MEDS: LIDOCAINE W/EPINEPHRINE 1% 20ML VIAL As Ordered ONE (13:43)
[2024-09-27] MEDS ORDERED: HYDROmorphone HCL 2MG/ML 1ML VIAL As Ordered ONE (13:45)
[2024-09-27] MEDS ORDERED: GLYCOPYRROLATE INJ 0.2 MG/ML 2 ML VIAL As Ordered ONE (13:53)
[2024-09-27] MEDS: METHYLENE BLUE 0.5% (5MG/ML) 10 ML AMP (PROVAYBLUE) As Ordered ONE (14:11)
[2024-09-27] MEDS: OXYMETAZOLINE 0.05% NASAL SPRAY As Ordered ONE (14:11)
[2024-09-27] MEDS ORDERED: fentaNYL 100 MCG/2 ML INJECTION IV PRN (14:50)
[2024-09-27] MEDS ORDERED: HYDROMORPHONE HCL 0.5 MG/ 0.5 ML SYRINGE IV PRN (14:50)
[2024-09-27] MEDS ORDERED: ONDANSETRON 4MG 2ML VIAL IV PRN ×2 (14:50→15:20)
[2024-09-27] MEDS ORDERED: LR 1,000 ML IV SCH ×2 (14:50→15:20)
[2024-09-27] MEDS: oxyCODONE 5MG TAB PO PRN (15:25)
[2024-09-27 16:10] VITALS: BP 135/85; TEMP 97.5; O2SAT 96
== END 2024-09-27 16:24 | disposition home or self-care (01) ==
LOC: M SDC 10:58
PROVIDERS: ATTEND Otolaryngology
DX: J32.9 Chronic sinusitis, unspecified (principal); J34.3 Hypertrophy of nasal turbinates; I10 Essential (primary) hypertension; E78.5 Hyperlipidemia, unspecified; M54.50 Low back pain, unspecified; R51.9 Headache, unspecified; Z86.711 Personal history of pulmonary embolism; Z88.5 Allergy status to narcotic agent; F41.9 Anxiety disorder, unspecified; Z79.51 Long term (current) use of inhaled steroids; Z79.82 Long term (current) use of aspirin; K21.9 Gastro-esophageal reflux disease without esophagitis; Z79.899 Other long term (current) drug therapy
CPT/HCPCS: 30140; 31240; 31255; 31267; 88304; 88305; J0131; J1100; J1171; J1596; J2250; J2405; J3010; Q9968

== ENCOUNTER → 2024-10-15 | Outpatient (CLI) | payer OTHER | LOC: M RAD 08:21 | PROVIDERS: ATTEND Thoracic Surgery (Cardiothoracic Vascular Surgery) | DX: I71.21 Aneurysm of the ascending aorta, without rupture (principal); L90.5 Scar conditions and fibrosis of skin; I25.84 Coronary atherosclerosis due to calcified coronary lesion ==

== ENCOUNTER → 2024-11-05 | Outpatient (REF) | payer OTHER, MEDICAID ==
[2024-11-05 14:08] LABS: C REACTIVE PROTEIN QUANTITATIV < 0.50 MG/DL (<1.0)
[2024-11-05 14:17] LABS: BASO # 0.1 10^3/uL (0.0-0.2); BASO % 1.2 % (0.0-1.0); EOS # 0.3 10^3/uL (0.0-0.5); EOS % 5.6 % (0.0-3.0); HEMATOCRIT 44.3 % (42.0-52.0); HEMOGLOBIN 14.7 g/dl (13.5-17.5); LYMPH % 16.7 % (24.0-44.0); MEAN CORPUSCULAR HGB CONC 33.2 g/dl (32.0-36.5); MEAN CORPUSCULAR VOLUME 96.3 fl (80.0-96.0); MONO # 0.6 10^3/uL (0.0-0.8); MONO % 10.9 % (2.0-8.0); NEUTROPHILS # 3.9 10^3/uL (1.5-8.5); NEUTROPHILS % 65.4 % (36.0-66.0); PLATELET COUNT, AUTOMATED 231 10^3/uL (150-450); WHITE BLOOD COUNT 5.9 10^3/uL (4.0-10.0)
[2024-11-05 16:52] LABS: APPEARANCE, URINE CLEAR (CLEAR); BACTERIA, URINE AUTO NEGATIVE (NEGATIVE); BILIRUBIN, URINE AUTO NEGATIVE (NEGATIVE); BLOOD, URINE BLOOD NEGATIVE (NEGATIVE); COLOR, URINE AMBER (YELLOW); GLUCOSE, URINE (UA) AUTO 1+ mg/dL (NEGATIVE); KETONE, URINE AUTO NEGATIVE (NEGATIVE); LEUKOCYTE ESTERASE, URINE AUTO NEGATIVE (NEGATIVE); MUCUS, URINE SMALL (NEGATIVE); NITRITE, URINE AUTO NEGATIVE (NEGATIVE); PROTEIN, URINE AUTO 1+ mg/dL (NEGATIVE); RBC, URINE AUTO 3 /HPF (0-3); SQUAMOUS EPITHELIAL CELL UR AU 0 /HPF (0-6); WBC, URINE AUTO 1 /HPF (0-3)
[2024-11-09 07:52] LABS: ERYTHROPOIETIN 18.9 mIU/mL (2.6-18.5)
== END ==
LOC: M SFHCADAM 07:07
PROVIDERS: ATTEND Nurse Practitioner Family
DX: R89.8 Other abnormal findings in specimens from other organs, systems and tissues (principal); G45.9 Transient cerebral ischemic attack, unspecified; N17.9 Acute kidney failure, unspecified

== ENCOUNTER → 2025-03-07 | Outpatient (REF) | payer OTHER ==
[2025-03-07 13:51] LABS: PSA SCREENING 1.09 NG/ML (< 4.00)
[2025-03-07 13:57] LABS: FREE T4 1.16 NG/DL (0.89-1.76)
[2025-03-07 13:58] LABS: CHOLESTEROL LEVEL 102.0 MG/DL (<200); CHOLESTEROL RISK RATIO 1.69 (<5); LDL CHOLESTEROL 34.7 MG/DL (<100); NON-HDL-C 41.7 MG/DL; TRIGLYCERIDES LEVEL 35.0 MG/DL (<150)
[2025-03-07 14:12] LABS: ESTIMATED AVERAGE GLUCOSE 105.0 MG/DL (60-110)
== END ==
LOC: M LABDRWAD 12:44
PROVIDERS: ATTEND Nurse Practitioner Family
DX: G45.9 Transient cerebral ischemic attack, unspecified (principal); Z13.1 Encounter for screening for diabetes mellitus; Z13.29 Encounter for screening for other suspected endocrine disorder; Z12.5 Encounter for screening for malignant neoplasm of prostate